=== PATIENT | female | born 1980 | race Caucasian/White ===

== ENCOUNTER 2017-04-05 00:12 | Emergency (ER) | payer OTHER ==
[2017-04-05 00:17] VITALS: BP 109/63
[2017-04-05 01:03] LABS: CHLORIDE,CL 103 mEq/L (98-106); SODIUM,NA 137 mEq/L (136-145)
--- NOTE | 2017-04-05 01:20 | EDM.PDOC ---
ED HPI GENERAL MEDICAL PROBLEM - General Chief Complaint: General Stated Complaint: post surgical "not feeling well" Time Seen by Provider: 04/05/17 00:53 Source of Information: Reports: Patient - History of Present Illness INITIAL COMMENTS - FREE TEXT/NARRATIVE: States that she was discharged from [facility] at 2130 tonight after being there since 03/27/17 and having incarcerated hernia surgery. Is supposed to start home health tomorrow to have IV antibiotics. She is confused as to how she is to meet up with home health. She states that she was driven home by her brother to [place] and then drove herself from there to here because she didn't understand what to do. She does have some tenderness to the incision area. No open area or drainage noted. Drain tube also noted to the right of the umbilicus. Location: Reports: Abdomen Severity: Mild Abdominal Pain Score (Numeric/FACES): 7 - Related Data Allergies Allergy/AdvReac Type Severity Reaction Status Date / Time No Known Allergies Allergy Verified 04/04/17 23:59 Home Meds: Home Meds PARoxetine [Paxil] 10 mg PO DAILY 10/18/15 [History] Gabapentin [Neurontin] 100 mg PO DAILY 08/27/16 [History] Magnesium 30 mg PO BID 08/27/16 [History] Potassium 99 mg PO DAILY 08/27/16 [History] rOPINIRole HCl [rOPINIRole] 3 mg PO DAILY 08/27/16 [History] Past Medical History HEENT History: Reports: Other (See Below) Cardiovascular History: Reports: Heart Murmur Respiratory History: Reports: None Gastrointestinal History: Reports: Cirrhosis, Other (See Below) Other Gastrointestinal History: liver failure. 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 Musculoskeletal History: Reports: Fracture Neurological History: Reports: Neuropathy, Peripheral Psychiatric History: Reports: Addiction, Anxiety, PTSD, Suicidal Ideation, Other (See Below) Other Psychiatric History: ETOH abuse Endocrine/Metabolic History: Reports: None Hematologic History: Reports: Anemia Immunologic History: Reports: None Oncologic (Cancer) History: Reports: None Dermatologic History: Reports: None - Infectious Disease History Infectious Disease History: Reports: Chicken Pox - Past Surgical History HEENT Surgical History: Reports: Other (See Below) Cardiovascular Surgical History: Reports: None Respiratory Surgical History: Reports: None GI Surgical History: Reports: Hernia Repair/Other Female Surgical History: Reports: None Musculoskeletal Surgical History: Reports: Hip Replacement Oncologic Surgical History: Reports: None Social & Family History - Family History Cardiac: Reports: CAD, High Cholesterol, Hypertension GI: Reports: Other (See Below) Musculoskeletal: Reports: Osteoarthritis - Tobacco Use Smoking Status *Q: Current Every Day Smoker Years of Tobacco use: 25 Packs/Tins Daily: 0.5 Used Tobacco, but Quit: No Second Hand Smoke Exposure: Yes - Caffeine Use Caffeine Use: Reports: Soda Caffeine Use Comment: 3 cans a day - Alcohol Use Days Per Week of Alcohol Use: 7 Number of Drinks Per Day: 10 Total Drinks Per Week: 70 - Recreational Drug Use Recreational Drug Use: No ED ROS GENERAL - Review of Systems Review Of Systems: See Below Constitutional: Denies: Fever, Chills HEENT: Reports: No Symptoms Respiratory: Denies: Shortness of Breath, Cough Cardiovascular: Denies: Edema GI/Abdominal: Reports: Abdominal Pain, Other (surgical incision is healing well. ) Skin: Reports: Jaundice Neurological: Reports: Confusion ED EXAM, GENERAL - Physical Exam Exam: See Below Exam Limited By: No Limitations General Appearance: Alert Ears: Normal External Exam, Normal Canal Head: Atraumatic, Normocephalic Neck: Normal Inspection, Supple, Non-Tender, Full Range of Motion Respiratory/Chest: No Respiratory Distress, Lungs Clear, Normal Breath Sounds Cardiovascular: Regular Rate, Rhythm, No Edema Extremities: Normal Inspection, Normal Range of Motion Neurological: Alert Skin Exam: Warm, Dry, Other (surgical incision to abdomen noted that is healing well. Drain tube intact and draining well ) Course - Vital Signs Last Recorded V/S: Last Vital Signs Temp 98.9 F 04/05/17 00:14 Pulse 83 04/05/17 00:14 Resp 20 04/05/17 00:14 BP 109/63 04/05/17 00:14 Pulse Ox 98 04/05/17 00:14 - Orders/Labs/Meds Orders: Active Orders 24 hr Category Date Time Status BASIC METABOLIC PANEL,BMP [CHEM] Stat Lab 04/05/17 00:26 Ordered C-REACTIVE PROTEIN [CHEM] Stat Lab 04/05/17 00:26 Ordered UA W/MICROSCOPIC [URIN] Stat Lab 04/05/17 00:26 Uncollected Labs: Laboratory Tests 06/16/17 Range/Units 00:26 WBC 4.4 L (5.0-10.0) 10^3/uL RBC 3.35 L (4.00-5.50) 10^6/uL Hgb 11.1 L (12.0-16.0) g/dL Hct 34.0 L (37.0-47.0) % MCV 101.5 H (82.0-94.0) fL MCH 33.1 H (27.0-32.0) pg MCHC 32.6 L (33.0-38.0) g/dL RDW Coeff of Renae 19.9 H (11.0-15.0) % Plt Count 56 L (150-400) 10^3/uL Neut % (Auto) 69.9 (35-85) % Lymph % (Auto) 10.2 (10-55) % Graham % (Auto) 18.1 H (0-16) % Eos % (Auto) 1.6 (0-5) % Baso % (Auto) 0.2 (0-3) % Neut # (Auto) 3.10 (1.80-7.00) 10^3/uL Lymph # (Auto) 0.45 L (1.00-4.80) 10^3/uL Graham # (Auto) 0.80 (0.00-0.80) 10^3/uL Eos # (Auto) 0.07 (0.00-0.45) 10^3/uL Baso # (Auto) 0.01 10^3/uL Departure - Departure Time of Disposition: 01:27 Disposition: Home, Self-Care 01 Condition: Good Clinical Impression: Hernia, umbilical, with obstruction, Alcohol abuse Liver failure Qualifiers: Liver failure chronicity: chronic Hepatic coma status: without hepatic coma Qualified Code(s): K72.10 - Chronic hepatic failure without coma - Discharge Information Forms: ED Department Discharge Additional Instructions: Home Health will be out to see you in the morning. Take your medications home with you and give them to the nurse in the morning. PUsh fluids as much as possible Fill the prescriptions that you have in the packet tomorrow AM. Home health can help you with that also Pain meds every 6 hours as directed. Follow up with surgeon as directed in you discharge packets Avoid any alcohol and cigarettes. - Problem List & Annotations (1) Hernia, umbilical, with obstruction SNOMED Code(s): 485525164 Code(s): K42.0 - UMBILICAL HERNIA WITH OBSTRUCTION, WITHOUT GANGRENE Status : Acute Priority: High Current Visit: Yes Onset Date: ~03/27/17 (2) Alcoholic cirrhosis of liver SNOMED Code(s): 328830654, 159741030 Code(s): K70.30 - ALCOHOLIC CIRRHOSIS OF LIVER WITHOUT ASCITES Status: Acute Priority: Medium Current Visit: No Onset Date: ~03/27/17 Qualifiers: Ascites presence: with ascites Qualified Code(s): K70.31 - Alcoholic cirrhosis of liver with ascites (3) Alcohol abuse SNOMED Code(s): 71826531 Code(s): F10.10 - ALCOHOL ABUSE, UNCOMPLICATED Status: Acute Priority: Low Current Visit: Yes Onset Date: ~03/27/17 - Problem List Review Problem List Initiated/Reviewed/Updated: Yes - My Orders Last 24 Hours: My Active Orders 04/05/17 00:26 BASIC METABOLIC PANEL,BMP [CHEM] Stat C-REACTIVE PROTEIN [CHEM] Stat UA W/MICROSCOPIC [URIN] Stat - Assessment/Plan Last 24 Hours: My Active Orders 04/05/17 00:26 BASIC METABOLIC PANEL,BMP [CHEM] Stat C-REACTIVE PROTEIN [CHEM] Stat UA W/MICROSCOPIC [URIN] Stat
[2017-04-05] MEDS ORDERED: oxyCODONE 5 MG Tab PO ONE (01:29)
== END 2017-04-05 01:38 | disposition home or self-care (01) ==
LOC: CC.ED 00:12
DX: K72.10 Chronic hepatic failure without coma (principal); K42.0 Umbilical hernia with obstruction, without gangrene; F10.10 Alcohol abuse, uncomplicated; F41.9 Anxiety disorder, unspecified; F17.210 Nicotine dependence, cigarettes, uncomplicated; Z86.2 Personal history of diseases of the blood and blood-forming organs and certain disorders involving the immune mechanism; Z96.649 Presence of unspecified artificial hip joint; Z79.899 Other long term (current) drug therapy
CPT/HCPCS: 36415; 80048; 85025; 86140; 99283; A9270

== ENCOUNTER 2017-07-03 19:55 | Emergency (ER) | payer OTHER ==
--- NOTE | 2017-07-03 20:37 | EDM.PDOC ---
ED HPI GENERAL MEDICAL PROBLEM - General Chief Complaint: General Stated Complaint: weakness, nausea Time Seen by Provider: 07/03/17 20:18 Source of Information: Reports: Patient History Limitations: Reports: No Limitations - History of Present Illness INITIAL COMMENTS - FREE TEXT/NARRATIVE: States that she hurts all over. Joints and back hurt. NO swelling of joints. Has not had any injuries. Has stopped taking her meds at least 2 weeks ago. " I hate to take pills". "My mind won't shut off and I'm tired but I can't sleep. " Onset: Gradual Duration: Week(s): (2+) Location: Reports: Back, Generalized Quality: Reports: Ache Generalized Pain Score (Numeric/FACES): 7 - Related Data Allergies Allergy/AdvReac Type Severity Reaction Status Date / Time CT contrast dye Allergy Shortness Uncoded 07/03/17 19:58 of Breath Home Meds: Home Meds PARoxetine [Paxil] 10 mg PO DAILY 10/18/15 [History] Gabapentin [Neurontin] 100 mg PO DAILY 08/27/16 [History] rOPINIRole HCl [rOPINIRole] 3 mg PO DAILY 08/27/16 [History] B Complx/C/Folic/Zinc/Copper/E [Eql Stress B-Complex Tablet] 1 tab PO DAILY [History] Cyclobenzaprine [Flexeril] 10 mg PO TID PRN 04/05/17 [History] Furosemide 40 mg PO BID 04/05/17 [History] Lactulose 30 ml PO TID 04/05/17 [History] Magnesium Oxide 800 mg PO TID 04/05/17 [History] Midodrine 2.5 mg PO BID 04/05/17 [History] Pantoprazole [ProTONIX] 40 mg PO BID 04/05/17 [History] Potassium Chloride 40 meq PO BID 04/05/17 [History] Rifaximin [Xifaxan] 550 mg PO BID 04/05/17 [History] Spironolactone [Aldactone] 100 mg PO DAILY 04/05/17 [History] Past Medical History HEENT History: Reports: Other (See Below) Cardiovascular History: Reports: Heart Murmur Respiratory History: Reports: None Gastrointestinal History: Reports: Cirrhosis, Other (See Below) Other Gastrointestinal History: liver failure. 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 Musculoskeletal History: Reports: Fracture Neurological History: Reports: Neuropathy, Peripheral Psychiatric History: Reports: Addiction, Anxiety, PTSD, Suicidal Ideation, Other (See Below) Other Psychiatric History: ETOH abuse Endocrine/Metabolic History: Reports: None Hematologic History: Reports: Anemia Immunologic History: Reports: None Oncologic (Cancer) History: Reports: None Dermatologic History: Reports: None - Infectious Disease History Infectious Disease History: Reports: Chicken Pox - Past Surgical History Cardiovascular Surgical History: Reports: None Respiratory Surgical History: Reports: None GI Surgical History: Reports: Hernia Repair/Other Female Surgical History: Reports: None Musculoskeletal Surgical History: Reports: Hip Replacement Oncologic Surgical History: Reports: None Social & Family History - Family History Cardiac: Reports: CAD, High Cholesterol, Hypertension GI: Reports: Other (See Below) Musculoskeletal: Reports: Osteoarthritis - Tobacco Use Smoking Status *Q: Current Every Day Smoker Years of Tobacco use: 36 Packs/Tins Daily: 0.5 Used Tobacco, but Quit: No Second Hand Smoke Exposure: Yes - Caffeine Use Caffeine Use: Reports: Soda Caffeine Use Comment: 3 cans a day - Alcohol Use Days Per Week of Alcohol Use: 7 Number of Drinks Per Day: 2 Total Drinks Per Week: 14 Date of Last Drink: 07/03/17 Time of Last Drink: 17:00 - Recreational Drug Use Recreational Drug Use: No - Living Situation & Occupation Living situation: Reports: Single, Alone Occupation: Disabled ED ROS GENERAL - Review of Systems Review Of Systems: See Below Constitutional: Reports: Chills, Weakness, Fatigue. Denies: Fever HEENT: Reports: No Symptoms Respiratory: Denies: Shortness of Breath, Wheezing, Cough Cardiovascular: Denies: Chest Pain, Edema, Lightheadedness GI/Abdominal: Reports: Abdominal Pain, Nausea, Vomiting (once earlier today). Denies: Black Stool, Bloody Stool, Constipation, Diarrhea : Reports: No Symptoms Musculoskeletal: Reports: Shoulder Pain, Joint Pain (states all of her joints hurt when she moves but they do not swell up.). Denies: Neck Pain, Joint Swelling Skin: Denies: Pruritis, Rash Neurological: Reports: Weakness. Denies: Confusion ED EXAM, GENERAL - Physical Exam Exam: See Below Exam Limited By: No Limitations General Appearance: Alert, Mild Distress Ears: Normal External Exam, Normal Canal, Normal TMs Nose: Normal Inspection Throat/Mouth: Normal Inspection, Normal Oropharynx, Normal Voice, No Airway Compromise Head: Atraumatic, Normocephalic Neck: Normal Inspection, Supple, Non-Tender, Full Range of Motion Respiratory/Chest: No Respiratory Distress, Lungs Clear, Normal Breath Sounds Cardiovascular: Normal Peripheral Pulses, Regular Rate, Rhythm, No Edema, No Murmur GI/Abdominal: Normal Bowel Sounds, Soft, Tender (mildly tender to the upper quadrants bilaterally. No tenderness to the lower quadrants.) Back Exam: Normal Inspection, Full Range of Motion Extremities: Normal Inspection, Non-Tender, No Pedal Edema, Normal Capillary Refill Neurological: Alert, Oriented Skin Exam: Warm, Dry, Intact, Normal Color Course - Vital Signs Last Recorded V/S: Last Vital Signs Temp 95.7 F 07/03/17 19:58 Pulse 111 H 07/03/17 19:58 Resp 20 07/03/17 19:58 BP 119/56 L 07/03/17 19:58 Pulse Ox 97 07/03/17 19:58 - Orders/Labs/Meds Orders: Active Orders 24 hr Category Date Time Status AMYLASE [CHEM] Stat Lab 07/03/17 20:25 Ordered C-REACTIVE PROTEIN [CHEM] Stat Lab 07/03/17 20:25 Ordered CBC WITH AUTO DIFF [HEME] Stat Lab 07/03/17 20:45 Received COMPREHENSIVE METABOLIC PN,CMP [CHEM] Stat Lab 07/03/17 20:25 Ordered CREATINE KINASE,CK [CHEM] Stat Lab 07/03/17 20:25 Ordered MAGNESIUM [CHEM] Stat Lab 07/03/17 20:25 Ordered TSH REFLEX TO FREE T4 [CHEM] Stat Lab 07/03/17 20:25 Ordered Labs: Laboratory Tests 07/03/17 07/03/17 Range/Units 20:45 20:45 ESR 36 H (0-20) mm/hr Urine Color Yellow (YELLOW) Urine Appearance Clear (CLEAR) Urine pH 6.0 (4.5-8.0) Ur Specific [place] 1.015 (1.003-1.020) Urine Protein 30 H (NEGATIVE) mg/dL Urine Glucose (UA) Negative (NEGATIVE) mg/dL Urine Ketones 15 H (NEGATIVE) mg/dL Urine Occult Blood Negative (NEGATIVE) Urine Nitrite Negative (NEGATIVE) Urine Bilirubin Negative (NEGATIVE) Urine Urobilinogen 1.0 (0.2-1.0) EU/dL Ur Leukocyte Esterase Negative (NEGATIVE) Urine RBC Not seen (0-5) /HPF Urine WBC 0-5 (0-5) /HPF Ur Squamous Epith Cells Few H (NOT SEEN) /HPF Urine Bacteria Few H (NOT SEEN) /HPF Urine Mucus Occasional H (NOT SEEN) /HPF Urinalysis Comment - Re-Assessments/Exams Free Text/Narrative Re-Assessment/Exam: 07/03/17 21:00 large dark red emesis noted. States "I really don't feel well" VS are stable. Awaiting lab results. Has not had any bloody stools or diarrhea. 07/03/17 21:35 large approximately 500 ml of bloody brownish liquid noted. Free Text/Narrative Re-Assessment/Exam: 07/03/17 21:30 Did contact the [facility] and discussed case with Dr. Harris and she stated that they do not have any beds available and would not be able to accept the pt at this time. 07/03/17 21:43 contacted one call at [facility] and discussed with Dr. Lemon this pt and he agrees in transfer. Will transfer by ALS ambulance Departure - Departure Time of Disposition: 21:49 Disposition: DC/Tfer to Acute Hospital 02 Condition: Serious Clinical Impression: Thrombocytopenia, Alcohol abuse GI bleed Qualifiers: GI bleed type/associated pathology: gastric ulcer Qualified Code(s): K25.4 - Chronic or unspecified gastric ulcer with hemorrhage Alcoholic cirrhosis of liver Qualifiers: Ascites presence: with ascites Qualified Code(s): K70.31 - Alcoholic cirrhosis of liver with ascites Liver failure Qualifiers: Liver failure chronicity: chronic Hepatic coma status: without hepatic coma Qualified Code(s): K72.10 - Chronic hepatic failure without coma - Discharge Information Forms: ED Department Discharge Additional Instructions: Transfer to [facility] room [address] Lemon accepting physician. Lactated ringers running at 500 ml enroute. Keep NPO - Problem List & Annotations (1) GI bleed SNOMED Code(s): 92240097 Code(s): K92.2 - GASTROINTESTINAL HEMORRHAGE, UNSPECIFIED Status: Acute Priority: High Current Visit: Yes Qualifiers: GI bleed type/associated pathology: gastric ulcer Qualified Code(s): K25.4 - Chronic or unspecified gastric ulcer with hemorrhage (2) Thrombocytopenia SNOMED Code(s): 647714201 Code(s): D69.6 - THROMBOCYTOPENIA, UNSPECIFIED Status: Acute Priority: High Current Visit: Yes (3) Liver failure SNOMED Code(s): 36080612 Code(s): K72.90 - HEPATIC FAILURE, UNSPECIFIED WITHOUT COMA Status: Acute Priority: High Current Visit: Yes Qualifiers: Liver failure chronicity: chronic Hepatic coma status: without hepatic coma Qualified Code(s): K72.10 - Chronic hepatic failure without coma (4) Alcoholic cirrhosis of liver SNOMED Code(s): 018051970, 831139829 Code(s): K70.30 - ALCOHOLIC CIRRHOSIS OF LIVER WITHOUT ASCITES Status: Chronic Priority: Medium Current Visit: Yes Onset Date: ~03/27/17 Qualifiers: Ascites presence: with ascites Qualified Code(s): K70.31 - Alcoholic cirrhosis of liver with ascites (5) Alcohol abuse SNOMED Code(s): 89674521 Code(s): F10.10 - ALCOHOL ABUSE, UNCOMPLICATED Status: Chronic Priority: Low Current Visit: Yes Onset Date: ~03/27/17 (6) Medical non-compliance SNOMED Code(s): 597569933 Code(s): Z91.19 - PATIENT'S NONCOMPLIANCE W OTH MEDICAL TREATMENT AND REGIMEN Status: Chronic Priority: Low Current Visit: No Onset Date: ~05/06 - Problem List Review Problem List Initiated/Reviewed/Updated: Yes - My Orders Last 24 Hours: My Active Orders 07/03/17 20:25 AMYLASE [CHEM] Stat C-REACTIVE PROTEIN [CHEM] Stat COMPREHENSIVE METABOLIC PN,CMP [CHEM] Stat CREATINE KINASE,CK [CHEM] Stat MAGNESIUM [CHEM] Stat TSH REFLEX TO FREE T4 [CHEM] Stat 07/03/17 20:45 CBC WITH AUTO DIFF [HEME] Stat - Assessment/Plan Last 24 Hours: My Active Orders 07/03/17 20:25 AMYLASE [CHEM] Stat C-REACTIVE PROTEIN [CHEM] Stat COMPREHENSIVE METABOLIC PN,CMP [CHEM] Stat CREATINE KINASE,CK [CHEM] Stat MAGNESIUM [CHEM] Stat TSH REFLEX TO FREE T4 [CHEM] Stat 07/03/17 20:45 CBC WITH AUTO DIFF [HEME] Stat Plan: Benefits of being transferred to [place] include the specialists including but not limited to surgeon, pill machine operator and GI. There is the risk of staying here of as we do not have surgeon and specialist if she continues to bleed with low platelets and hgb. Pt voices understanding and wishes to be transferred per ambulance.
[2017-07-03 21:11] LABS: CHLORIDE,CL 102 mEq/L (98-106); SODIUM,NA 142 mEq/L (136-145)
[2017-07-03] MEDS ORDERED: Lactated Ringers 1,000 ML IV SCH (21:30)
[2017-07-03] MEDS ORDERED: Ondansetron 4 MG/2 ML SDV IVPUSH PRN (21:36)
[2017-07-03] MEDS ORDERED: Pantoprazole 40 MG Vial IVPUSH SCH (21:45)
[2017-07-03 22:56] VITALS: BP 116/72
== END 2017-07-03 22:30 ==
LOC: CC.ED 19:55
DX: K25.4 Chronic or unspecified gastric ulcer with hemorrhage (principal); K72.10 Chronic hepatic failure without coma; K70.31 Alcoholic cirrhosis of liver with ascites; D69.6 Thrombocytopenia, unspecified; F10.10 Alcohol abuse, uncomplicated; F17.210 Nicotine dependence, cigarettes, uncomplicated; Z91.041 Radiographic dye allergy status; Z79.899 Other long term (current) drug therapy; F41.9 Anxiety disorder, unspecified; Z86.2 Personal history of diseases of the blood and blood-forming organs and certain disorders involving the immune mechanism; Z96.649 Presence of unspecified artificial hip joint
CPT/HCPCS: 36415; 80053; 81001; 82150; 82271; 82550; 83735; 84443; 85025; 85651; 86140; 96361; 96374; 96375; 99285; C9113; J2405; J7120; 99284

== ENCOUNTER 2017-11-15 17:37 | Emergency (ER) | payer OTHER ==
[2017-11-15 17:42] VITALS: BP 133/70
[2017-11-15 18:29] LABS: CHLORIDE,CL 104 mEq/L (98-106); SODIUM,NA 135 mEq/L (136-145)
--- NOTE | 2017-11-15 18:32 | EDM.PDOC ---
ED HPI GENERAL MEDICAL PROBLEM - General Chief Complaint: General Stated Complaint: FLU SYMPTOMS Time Seen by Provider: 11/15/17 18:00 Source of Information: Reports: Patient History Limitations: Reports: No Limitations - History of Present Illness INITIAL COMMENTS - FREE TEXT/NARRATIVE: This patient is a 36 year old female that presents to the ER. Patient reports that for 3 days she has not felt well. She reports having runny nose, congestion , drainage, productive cough, body aches. She denies neck pain, neck stiffness, cp, soa, abd pain, urinary, bowel changes, rashes. Onset Date: 11/12/17 Duration: Day(s): (3) Quality: Reports: Ache Severity: Mild Improves with: Reports: None Worsens with: Reports: None Associated Symptoms: Reports: No Other Symptoms, Cough, cough w sputum, Malaise. Denies: Confusion, Chest Pain, Diaphoresis, Fever/Chills, Headaches, Nausea/Vomiting, Rash, Seizure, Shortness of Breath, Syncope, Weakness Generalized Pain Score (Numeric/FACES): 7 - Related Data Allergies Allergy/AdvReac Type Severity Reaction Status Date / Time morphine Allergy Hallucinati Verified 11/15/17 17:[address] contrast dye Allergy Shortness Uncoded 07/03/17 19:58 of Breath Home Meds: Home Meds rOPINIRole HCl [rOPINIRole] 3 mg PO DAILY PRN 08/27/16 [History] B Complx/C/Folic/Zinc/Copper/E [Eql Stress B-Complex Tablet] 1 tab PO DAILY [History] Lactulose 30 ml PO TID 04/05/17 [History] Spironolactone [Aldactone] 100 mg PO DAILY 04/05/17 [History] traZODone HCl [Trazodone HCl] 25 mg PO DAILY 11/15/17 [History] Past Medical History HEENT History: Reports: Other (See Below) Cardiovascular History: Reports: Heart Murmur Respiratory History: Reports: None Gastrointestinal History: Reports: Cirrhosis, Other (See Below) Other Gastrointestinal History: liver failure. ascites Genitourinary History: Reports: None ANESTHESIOLOGISTS' ASSISTANT History: Reports: None Musculoskeletal History: Reports: Fracture Neurological History: Reports: Neuropathy, Peripheral Psychiatric History: Reports: Addiction, Anxiety, PTSD, Suicidal Ideation, Other (See Below) Other Psychiatric History: ETOH abuse Endocrine/Metabolic History: Reports: None Hematologic History: Reports: Anemia Immunologic History: Reports: None Oncologic (Cancer) History: Reports: None Dermatologic History: Reports: None - Infectious Disease History Infectious Disease History: Reports: Chicken Pox - Past Surgical History Cardiovascular Surgical History: Reports: None Respiratory Surgical History: Reports: None GI Surgical History: Reports: Hernia Repair/Other Female Surgical History: Reports: None Musculoskeletal Surgical History: Reports: Hip Replacement Oncologic Surgical History: Reports: None Social & Family History - Family History Cardiac: Reports: CAD, High Cholesterol, Hypertension GI: Reports: Other (See Below) Musculoskeletal: Reports: Osteoarthritis - Tobacco Use Smoking Status *Q: Heavy Tobacco Smoker Years of Tobacco use: 15 Packs/Tins Daily: 1 Used Tobacco, but Quit: No Second Hand Smoke Exposure: Yes - Caffeine Use Caffeine Use: Reports: None Caffeine Use Comment: 3 cans a day - Alcohol Use Days Per Week of Alcohol Use: 7 Number of Drinks Per Day: 2 Total Drinks Per Week: 14 - Recreational Drug Use Recreational Drug Use: No - Living Situation & Occupation Living situation: Reports: Single, Alone Occupation: Disabled ED ROS GENERAL - Review of Systems Review Of Systems: See Below Constitutional: Reports: No Symptoms HEENT: Reports: Rhinitis, Sinus Problem Respiratory: Reports: Cough, Sputum. Denies: Shortness of Breath Cardiovascular: Reports: No Symptoms Endocrine: Reports: No Symptoms GI/Abdominal: Reports: No Symptoms : Reports: No Symptoms Musculoskeletal: Reports: No Symptoms Skin: Reports: No Symptoms Neurological: Reports: No Symptoms Psychiatric: Reports: No Symptoms Hematologic/Lymphatic: Reports: No Symptoms Immunologic: Reports: No Symptoms ED EXAM, GENERAL - Physical Exam Exam: See Below Exam Limited By: No Limitations General Appearance: Alert, WD/WN, No Apparent Distress Eye Exam: Bilateral Eye: Normal Inspection Ears: Normal External Exam, Normal Canal, Hearing Grossly Normal, Normal TMs Ear Exam: Bilateral Ear: Auricle Normal, Canal Normal, TM normal Nose: Normal Mucosa, No Blood, Clear Rhinorrhea Throat/Mouth: Normal Inspection, Normal Lips, Normal Teeth, Normal Gums, Normal Oropharynx, Normal Voice, No Airway Compromise Head: Atraumatic, Normocephalic Neck: Normal Inspection, Supple, Non-Tender, Full Range of Motion Respiratory/Chest: No Respiratory Distress, Lungs Clear, Normal Breath Sounds, No Accessory Muscle Use Cardiovascular: Normal Peripheral Pulses, Regular Rate, Rhythm, No Edema, No Gallop, No JVD, No Murmur, No Rub Peripheral Pulses: 2+: Radial (L), Radial (R), Posterior Tibial (L), Posterior Tibial (R) GI/Abdominal: Normal Bowel Sounds, Soft, Non-Tender, No Organomegaly, No Distention, No Abnormal Bruit, No Mass, Pelvis Stable Back Exam: Normal Inspection, Full Range of Motion. No: CVA Tenderness (L), CVA Tenderness (R) Extremities: Normal Inspection, Normal Range of Motion, Non-Tender, No Pedal Edema, Normal Capillary Refill Neurological: Alert, Oriented Psychiatric: Normal Affect, Normal Mood Skin Exam: Warm, Dry, Intact, No Rash, Jaundice (mildly. No conjuncta jaundice. ) Course - Vital Signs Last Recorded V/S: Last Vital Signs Temp 98.1 F 11/15/17 17:38 Pulse 100 11/15/17 17:38 Resp 20 11/15/17 17:38 BP 133/70 11/15/17 17:38 Pulse Ox 95 11/15/17 17:38 - Orders/Labs/Meds Labs: Laboratory Tests 11/15/17 11/15/17 Range/Units 18:08 18:08 WBC 3.7 L (5.0-10.0) 10^3/uL RBC 3.16 L (4.00-5.50) 10^6/uL Hgb 9.7 L (12.0-16.0) g/dL Hct 30.7 L (37.0-47.0) % MCV 97.2 H (82.0-94.0) fL MCH 30.7 (27.0-32.0) pg MCHC 31.6 L (33.0-38.0) g/dL RDW Coeff of Renae 16.8 H (11.0-15.0) % Plt Count 55 L (150-400) 10^3/uL Neut % (Auto) 60.9 (35-85) % Lymph % (Auto) 23.8 (10-55) % [place] % (Auto) 12.3 (0-16) % Eos % (Auto) 2.7 (0-5) % Baso % (Auto) 0.3 (0-3) % Neut # (Auto) 2.23 (1.80-7.00) 10^3/uL Lymph # (Auto) 0.87 L (1.00-4.80) 10^3/uL [place] # (Auto) 0.45 (0.00-0.80) 10^3/uL Eos # (Auto) 0.10 (0.00-0.45) 10^3/uL Baso # (Auto) 0.01 10^3/uL Sodium 135 L (136-145) mEq/L Potassium 3.9 (3.5-5.0) mEq/L Chloride 104 (98-106) mEq/L Carbon Dioxide 22 (21-32) mmol/L BUN 9 (7-18) mg/dL Creatinine 0.7 (0.6-1.0) mg/dL Est Cr Clr Drug Dosing 94.10 mL/min Estimated GFR (MDRD) > 60 (>=60) mL/min Glucose 105 H D (75-99) mg/dL Calcium 8.7 (8.4-10.1) mg/dL Total Bilirubin 2.0 H (0.0-1.0) mg/dL AST 25 (15-37) U/L ALT 15 (12-78) U/L Alkaline Phosphatase 121 H (46-116) U/L Total Protein 7.1 (6.4-8.2) g/dL Albumin 2.7 L (3.4-5.0) g/dL Departure - Departure Time of Disposition: 18:36 Disposition: Home, Self-Care 01 Condition: Good Clinical Impression: Upper respiratory infection Qualifiers: URI type: unspecified viral URI Qualified Code(s): J06.9 - Acute upper respiratory infection, unspecified - Discharge Information Instructions: Upper Respiratory Infection, Adult, [id number] Forms: ED Department Discharge Additional Instructions: Followup with your primary care provider Return to the ER for worsening of condition or any emergent concerns Increase fluids Cefdinir 300mg 1 pill twice a day for 10 days #20 no refill - Assessment/Plan Plan: PLEASE SEE RN NOTE FOR PFSH.
== END 2017-11-15 18:51 | disposition home or self-care (01) ==
LOC: CC.ED 17:37
DX: J06.9 Acute upper respiratory infection, unspecified (principal); F17.210 Nicotine dependence, cigarettes, uncomplicated; Z88.5 Allergy status to narcotic agent; Z91.041 Radiographic dye allergy status; Z79.899 Other long term (current) drug therapy
CPT/HCPCS: 36415; 80053; 85025; 87804; 99283

== ENCOUNTER 2018-01-01 01:46 | Emergency (ER) | payer OTHER ==
[2018-01-01 02:26] LABS: CHLORIDE,CL 100 mEq/L (98-106); SODIUM,NA 138 mEq/L (136-145)
[2018-01-01] MEDS ORDERED: Lactated Ringers 1,000 ML IV ONE (02:37)
[2018-01-01] MEDS ORDERED: Potassium Chloride 20 MEQ in Premix Bag 1 BAG IV ONE (02:37)
[2018-01-01] MEDS ORDERED: Pantoprazole 40 MG Vial IVPUSH STA (02:39)
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
[2018-01-01] MEDS ORDERED: Ondansetron 4 MG/2 ML SDV IVPUSH STA (02:53)
[2018-01-01] MEDS ORDERED: Ondansetron 4 MG/2 ML SDV IVPUSH ONE (03:37)
[2018-01-01] MEDS ORDERED: LORazepam 2 MG/ML Syringe IVPUSH PRN (03:37)
[2018-01-01] MEDS ORDERED: cefTRIAXone 1 GM Vial IVPUSH ONE (03:47)
[2018-01-01 04:32] VITALS: BP 121/51
== END 2018-01-01 04:50 ==
LOC: CC.ED 01:46
DX: K70.30 Alcoholic cirrhosis of liver without ascites (principal); K92.2 Gastrointestinal hemorrhage, unspecified; D69.6 Thrombocytopenia, unspecified; E87.6 Hypokalemia; I10 Essential (primary) hypertension; F41.9 Anxiety disorder, unspecified; F17.210 Nicotine dependence, cigarettes, uncomplicated; Z79.899 Other long term (current) drug therapy; Z88.5 Allergy status to narcotic agent; Z91.041 Radiographic dye allergy status; Z91.09 Other allergy status, other than to drugs and biological substances
CPT/HCPCS: 36415; 80053; 81001; 82150; 82271; 85025; 86140; 96365; 96366; 96368; 96375; 99285; C9113; J0696; J2060; J2405; J3480; J7120

== ENCOUNTER 2018-02-07 14:00 | Emergency (ER) | payer OTHER ==
--- NOTE | 2018-02-07 14:26 | EDM.PDOC ---
ED HPI GENERAL MEDICAL PROBLEM - General Chief Complaint: Abdominal Pain Stated Complaint: STOMACH Time Seen by Provider: 02/07/18 14:21 - History of Present Illness INITIAL COMMENTS - FREE TEXT/NARRATIVE: Corrie is a 37 year old female, with PMH of alcohol cirrhosis, hepatic encephalopathy, HTN, hyperlipidemia, and esophageal varices who presents to the ED with c/o vomiting blood. She reports that she has been nauseated the past few weeks. She was seen by [facility] on Saturday02/04/18. She reports she was given zofran. This has helped some with the nausea. She reports that about an hour ago she had an episode where she vomited and it was pure blood. She reports it was a rather small amount, but this happened about a month ago and she ended up in the ICU so she is very concerned. She does complain of abdominal pain, rated a 4/10 to her umbilical area. She reports this has worsened some today. She has not been eating or drinking much. She reports she feels somewhat weak. She denies any excessive alcohol use for the past 1.5 months. She does report she "has a sip last night to see if it tasted sour." Denies any fever, chills, dizziness, chest pain, shortness of breath, diarrhea. Onset: Today, Sudden Onset Date: 02/07/18 Onset Time: 13:00 Duration: Getting Worse Location: Reports: Abdomen (umbilical), Other (vomiting blood) Severity: Moderate Associated Symptoms: Reports: Loss of Appetite, Nausea/Vomiting, Weakness. Denies: Confusion, Chest Pain, Cough, cough w sputum, Diaphoresis, Fever/Chills , Headaches, Malaise, Rash, Seizure, Shortness of Breath, Syncope Abdominal Pain Score (Numeric/FACES): 4 - Related Data Allergies Allergy/AdvReac Type Severity Reaction Status Date / Time morphine Allergy Hallucinati Verified 02/07/18 14:[address] contrast dye Allergy Shortness Uncoded 07/03/17 19:58 of Breath laundry soa[ Allergy Rash Uncoded 01/01/18 01:50 Home Meds: Home Meds rOPINIRole HCl [rOPINIRole] 3 mg PO DAILY PRN 08/27/16 [History] Lactulose 30 ml PO TID PRN 04/05/17 [History] Folic Acid 1 mg PO DAILY 02/07/18 [History] Multivitamin with Minerals [Multiple Vitamin] 1 tab PO DAILY 02/07/18 [History] Mylanta 10 ml PO TID PRN 02/07/18 [History] Ondansetron [Zofran] 8 mg PO Q8H PRN 02/07/18 [History] Pantoprazole Sodium 40 mg PO BID 02/07/18 [History] Rifaximin [Xifaxan] 550 mg PO BID 02/07/18 [History] Spironolactone [Aldactone] 25 mg PO DAILY 02/07/18 [History] Thiamine HCl [Vitamin B-1] 100 mg PO DAILY 02/07/18 [History] traZODone HCl [Trazodone HCl] 25 - 50 mg PO BEDTIME PRN 02/07/18 [History] valACYclovir HCl [Valtrex] 2,000 mg PO BID PRN 02/07/18 [History] Past Medical History HEENT History: Reports: Other (See Below) Other HEENT History: BLOOD VESSEL THAT BURST IN HER THROAT; 2017 Cardiovascular History: Reports: Heart Murmur Respiratory History: Reports: None Gastrointestinal History: Reports: Cirrhosis, Other (See Below) Other Gastrointestinal History: liver failure. 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: Reports: Endometriosis Musculoskeletal History: Reports: Fracture Neurological History: Reports: Neuropathy, Peripheral Psychiatric History: Reports: Addiction, Anxiety, PTSD, Other (See Below) Other Psychiatric History: ETOH abuse Endocrine/Metabolic History: Reports: None Hematologic History: Reports: Anemia Immunologic History: Reports: None Oncologic (Cancer) History: Reports: None Dermatologic History: Reports: None - Infectious Disease History Infectious Disease History: Reports: Chicken Pox Other Infectious Disease History: hx mrsa in area of hernia repair - Past Surgical History Cardiovascular Surgical History: Reports: None Respiratory Surgical History: Reports: None GI Surgical History: Reports: Hernia Repair/Other Female Surgical History: Reports: None Musculoskeletal Surgical History: Reports: Hip Replacement Oncologic Surgical History: Reports: None Social & Family History - Family History Cardiac: Reports: CAD, High Cholesterol, Hypertension GI: Reports: Other (See Below) Musculoskeletal: Reports: Osteoarthritis - Tobacco Use Smoking Status *Q: Current Every Day Smoker Years of Tobacco use: 20 Packs/Tins Daily: 0.5 Used Tobacco, but Quit: No Second Hand Smoke Exposure: Yes - Caffeine Use Caffeine Use: Reports: Soda Caffeine Use Comment: 3 cans a day - Alcohol Use Days Per Week of Alcohol Use: 7 Number of Drinks Per Day: 2 Total Drinks Per Week: 14 - Recreational Drug Use Recreational Drug Use: No Recreational Drug Type: Reports: Marijuana/Hashish - Living Situation & Occupation Living situation: Reports: Single, Alone Occupation: Disabled ED ROS GENERAL - Review of Systems Review Of Systems: See Below Constitutional: Reports: Weakness, Fatigue, Decreased Appetite. Denies: Fever, Chills, Malaise Respiratory: Denies: Shortness of Breath, Cough, Sputum Cardiovascular: Denies: Chest Pain, Dyspnea on Exertion, Lightheadedness, Syncope Endocrine: Reports: Fatigue GI/Abdominal: Reports: Abdominal Pain, Decreased Appetite, Hematemesis, Nausea, Vomiting. Denies: Diarrhea Skin: Reports: Jaundice Neurological: Reports: No Symptoms. Denies: Confusion Psychiatric: Reports: No Symptoms Hematologic/Lymphatic: Reports: Easy Bruising Immunologic: Reports: No Symptoms ED EXAM, GI/ABD - Physical Exam Exam: See Below Exam Limited By: No Limitations General Appearance: Alert, WD/WN, No Apparent Distress Throat/Mouth: Normal Inspection, Normal Lips, Normal Teeth, Normal Gums, Normal Oropharynx, Normal Voice, No Airway Compromise Head: Atraumatic, Normocephalic Neck: Normal Inspection, Supple, Non-Tender, Full Range of Motion Respiratory/Chest: No Respiratory Distress, Lungs Clear, Normal Breath Sounds, No Accessory Muscle Use, Chest Non-Tender Cardiovascular: Normal Peripheral Pulses, Regular Rate, Rhythm, No Edema, No Gallop, No JVD, No Murmur, No Rub GI/Abdominal Exam: Normal Bowel Sounds, Soft, Distended, Tender (umbilical area) Back Exam: Normal Inspection, Full Range of Motion, NT Extremities: Normal Inspection, Normal Range of Motion, Non-Tender, Normal Capillary Refill, No Pedal Edema Neurological: Alert, Oriented, CN II-XII Intact, Normal Cognition, Normal Gait, Normal Reflexes, No Motor/Sensory Deficits Psychiatric: Normal Affect, Normal Mood Skin Exam: Warm, Dry, Intact, Jaundice Lymphatic: No Adenopathy Course - Vital Signs Last Recorded V/S: Last Vital Signs Temp 98.9 F 02/07/18 14:02 Pulse 116 H 02/07/18 14:02 Resp 16 02/07/18 14:02 BP 117/73 02/07/18 15:21 Pulse Ox 96 02/07/18 14:02 - Orders/Labs/Meds Orders: Active Orders 24 hr Category Date Time Status Ondansetron [Zofran] Med 02/07/18 17:00 Active 4 mg IVPUSH STAT Medication Orders Ondansetron HCl (Zofran) 4 mg IVPUSH STAT HARLEEN Last Admin: 02/07/18 17:19 Dose: 4 mg Labs: Laboratory Tests 02/07/18 02/07/18 02/07/18 Range/Units 14:26 14:26 14:30 WBC 3.4 L (5.0-10.0) 10^3/uL RBC 2.75 L (4.00-5.50) 10^6/uL Hgb 7.9 L* (12.0-16.0) g/dL Hct 25.2 L (37.0-47.0) % MCV 91.6 (82.0-94.0) fL MCH 28.7 (27.0-32.0) pg MCHC 31.3 L (33.0-38.0) g/dL RDW Coeff of Renae 18.2 H (11.0-15.0) % Plt Count 38 L* (150-400) 10^3/uL Neut % (Auto) 71.1 (35-85) % Lymph % (Auto) 13.7 (10-55) % Davie % (Auto) 13.1 (0-16) % Eos % (Auto) 1.8 (0-5) % Baso % (Auto) 0.3 (0-3) % Neut # (Auto) 2.39 (1.80-7.00) 10^3/uL Lymph # (Auto) 0.46 L (1.00-4.80) 10^3/uL Davie # (Auto) 0.44 (0.00-0.80) 10^3/uL Eos # (Auto) 0.06 (0.00-0.45) 10^3/uL Baso # (Auto) 0.01 10^3/uL PT 14.7 H (9.7-12.3) SEC INR 1.45 H (0.92-1.18) APTT 33.6 H (23.2-32.3) SEC Sodium 140 (136-145) mEq/L Potassium 3.7 (3.5-5.0) mEq/L Chloride 107 H (98-106) mEq/L Carbon Dioxide 25 (21-32) mmol/L BUN 11 (7-18) mg/dL Creatinine 0.7 (0.6-1.0) mg/dL Est Cr Clr Drug Dosing 93.17 mL/min Estimated GFR (MDRD) > 60 (>=60) mL/min Glucose 124 H (75-99) mg/dL Calcium 7.7 L (8.4-10.1) mg/dL Total Bilirubin 1.3 H (0.0-1.0) mg/dL AST 26 (15-37) U/L ALT 19 (12-78) U/L Alkaline Phosphatase 118 H (46-116) U/L Total Protein 6.2 L (6.4-8.2) g/dL Albumin 2.4 L (3.4-5.0) g/dL Amylase 51 (25-115) U/L Meds: Medications Generic Name Dose Route Start Last Admin Trade Name Freq PRN Reason Stop Dose Admin Ondansetron HCl 4 mg 02/07/18 17:00 02/07/18 17:19 Zofran IVPUSH 4 mg STAT HARLEEN Administration Discontinued Medications Generic Name Dose Route Start Last Admin Trade Name Freq PRN Reason Stop Dose Admin Sodium Chloride 1,000 mls @ 999 mls/hr 02/07/18 16:58 02/07/18 17:16 Normal Saline IV 02/07/18 17:58 999 mls/hr .BOLUS ONE Administration Pantoprazole Sodium 80 mg 02/07/18 16:57 02/07/18 17:11 Protonix Iv IVPUSH 02/07/18 16:58 80 mg ONETIME ONE Administration - Re-Assessments/Exams Free Text/Narrative Re-Assessment/Exam: Discussed case with patient's PCP Una at the [facility] in [place]. She reports that her hgb on 02/04/18 was 9.0. She relays to me that the [facility] is unable to accept her for transfer at this time due to no surgeon available if she were to need emergent endoscopy. Discussed case with Dr. Crockett ([facility] hospitalist) who accepted the patient for transfer. Patient given 80 mg protonix, 1L NS, and 4 mg zofran. VSS at this time. [facility] to provide ALS transfer to [facility]. Risks and benefits were discussed with patient. Risks of transfer include worsening of condition, , and MVA. Benefits of transfer include higher level of care, surgical consultation if needed, availability of required meds and blood products. Risks of nontransfer include worsening of condition and nonspecialized services. Benefits of nontransfer include close to home and familiar environment. Patient voiced understanding and was agreeable to transfer. Departure - Departure Time of Disposition: 17:40 Disposition: DC/Tfer to [facility] 02 Condition: Fair Clinical Impression: Esophageal varices in alcoholic cirrhosis, Hematemesis with nausea, Thrombocytopenia Anemia Qualifiers: Anemia type: unspecified type Qualified Code(s): D64.9 - Anemia, unspecified - Discharge Information Referrals: Julia Rowan PA-C [Primary Care Provider] - Forms: ED Department Discharge - Problem List & Annotations (1) GI bleed SNOMED Code(s): 86458712 Code(s): K92.2 - GASTROINTESTINAL HEMORRHAGE, UNSPECIFIED Status: Acute Current Visit: No Qualifiers: GI bleed type/associated pathology: gastritis Gastritis type: alcoholic Qualified Code(s): K29.21 - Alcoholic gastritis with bleeding (2) Alcoholic cirrhosis of liver SNOMED Code(s): 568373894 Code(s): K70.30 - ALCOHOLIC CIRRHOSIS OF LIVER WITHOUT ASCITES Status: Chronic Priority: Medium Current Visit: No Onset Date: ~03/27/17 Qualifiers: Ascites presence: with ascites Qualified Code(s): K70.31 - Alcoholic cirrhosis of liver with ascites (3) Esophageal varices in alcoholic cirrhosis SNOMED Code(s): 784797538 Code(s): K70.30 - ALCOHOLIC CIRRHOSIS OF LIVER WITHOUT ASCITES; I85.10 - SECONDARY ESOPHAGEAL VARICES WITHOUT BLEEDING Status: Acute Current Visit: Yes (4) Hematemesis with nausea SNOMED Code(s): 8907578, 89042208 Code(s): K92.0 - HEMATEMESIS Status: Acute Current Visit: Yes (5) Thrombocytopenia SNOMED Code(s): 882933722 Code(s): D69.6 - THROMBOCYTOPENIA, UNSPECIFIED Status: Chronic Current Visit: Yes (6) Anemia SNOMED Code(s): 718908808 Code(s): D64.9 - ANEMIA, UNSPECIFIED Status: Acute Current Visit: Yes Qualifiers: Anemia type: unspecified type Qualified Code(s): D64.9 - Anemia, unspecified - Problem List Review Problem List Initiated/Reviewed/Updated: Yes - My Orders Last 24 Hours: My Active Orders 02/07/18 17:00 Ondansetron [Zofran] 4 mg IVPUSH STAT - Assessment/Plan Last 24 Hours: My Active Orders 02/07/18 17:00 Ondansetron [Zofran] 4 mg IVPUSH STAT Plan: Patent will be transfer to [facility] for further monitoring and treatment.
[2018-02-07 14:46] LABS: CHLORIDE,CL 107 mEq/L (98-106); SODIUM,NA 140 mEq/L (136-145)
[2018-02-07 15:22] VITALS: BP 117/73
[2018-02-07] MEDS ORDERED: Pantoprazole 40 MG Vial IVPUSH ONE (16:57)
[2018-02-07] MEDS ORDERED: Sodium Chloride 0.9% 1,000 ML IV ONE (16:58)
[2018-02-07] MEDS ORDERED: Ondansetron 4 MG/2 ML SDV IVPUSH SCH (17:00)
== END 2018-02-07 17:40 ==
LOC: CC.ED 14:00
DX: K70.30 Alcoholic cirrhosis of liver without ascites (principal); I85.10 Secondary esophageal varices without bleeding; D69.6 Thrombocytopenia, unspecified; K92.0 Hematemesis; R11.0 Nausea; D64.9 Anemia, unspecified; F17.210 Nicotine dependence, cigarettes, uncomplicated; Z88.5 Allergy status to narcotic agent; Z91.041 Radiographic dye allergy status; Z91.013 Allergy to seafood; Z79.899 Other long term (current) drug therapy
CPT/HCPCS: 36415; 80053; 82150; 85025; 85610; 85730; 96361; 96374; 96375; 99284; C9113; J2405; J7030

== ENCOUNTER 2018-03-05 00:05 | Emergency (ER) | payer OTHER ==
[2018-03-05] MEDS: Lactated Ringers 1,000 ML IV SCH ×2 (00:58→02:00)
[2018-03-05] MEDS: Ondansetron 4 MG/2 ML SDV IVPUSH ONE (00:58)
[2018-03-05] MEDS: Pantoprazole 40 MG Vial IVPUSH SCH ×2 (00:58→01:15)
--- NOTE | 2018-03-05 01:17 | EDM.PDOC ---
ED HPI GENERAL MEDICAL PROBLEM - General Chief Complaint: Gastrointestinal Problem Stated Complaint: "Having black stools" Time Seen by Provider: 03/05/18 00:05 Source of Information: Reports: Patient History Limitations: Reports: No Limitations - History of Present Illness INITIAL COMMENTS - FREE TEXT/NARRATIVE: Corrie is a 37 yo female who presents to the ER via private vehicle with concerns of dark stools. She was seen in clinic earlier today with complaints of nausea. Laboratory work showed a Hgb of 9.1 at 1535. Last known Hgb was 10.2 on 02/17/18 which was done by her primary provider at the [place]. She admitted earlier she had a darker stool yesterday but none today. Tonight she admits since being seen in the clinic she has had multiple episodes of large black stools. States she became slightly lightheaded this evening as well. She admits with a known history of esophageal varices with recent hospital admissions, she was advised to come in to the emergency room. Hgb [place] 8.7[place] [address]. She has a known history of esophageal varices, cirrhosis of liver, thrombocytopenia and sinus tachycardia. She denies any alcohol use since December. She has been hospitalized twice this year secondary to the esophageal varices. Duration: Getting Worse - Related Data Allergies Allergy/AdvReac Type Severity Reaction Status Date / Time morphine Allergy Hallucinati Verified 03/05/18 00:[address] contrast dye Allergy Shortness Uncoded 03/05/18 00:17 of Breath laundry soa[ Allergy Rash Uncoded 03/05/18 00:17 Home Meds: Home Meds rOPINIRole HCl [rOPINIRole] 3 mg PO DAILY PRN 08/27/16 [History] Lactulose 30 ml PO TID PRN 04/05/17 [History] Folic Acid 1 mg PO DAILY 02/07/18 [History] Multivitamin with Minerals [Multiple Vitamin] 1 tab PO DAILY 02/07/18 [History] Mylanta 10 ml PO TID PRN 02/07/18 [History] Ondansetron [Zofran] 8 mg PO Q8H PRN 02/07/18 [History] Pantoprazole Sodium 40 mg PO BID 02/07/18 [History] Rifaximin [Xifaxan] 550 mg PO BID 02/07/18 [History] Spironolactone [Aldactone] 25 mg PO DAILY 02/07/18 [History] Thiamine HCl [Vitamin B-1] 100 mg PO DAILY 02/07/18 [History] traZODone HCl [Trazodone HCl] 25 - 50 mg PO BEDTIME PRN 02/07/18 [History] valACYclovir HCl [Valtrex] 2,000 mg PO BID PRN 02/07/18 [History] Past Medical History HEENT History: Reports: Other (See Below) Other HEENT History: BLOOD VESSEL THAT BURST IN HER THROAT; 2017 Cardiovascular History: Reports: Heart Murmur Respiratory History: Reports: None Gastrointestinal History: Reports: Cirrhosis, GI Bleed, Other (See Below) Other Gastrointestinal History: liver failure. 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 Musculoskeletal History: Reports: Fracture Neurological History: Reports: Neuropathy, Peripheral Psychiatric History: Reports: Addiction, Anxiety, PTSD, Other (See Below) Other Psychiatric History: ETOH abuse Endocrine/Metabolic History: Reports: None Hematologic History: Reports: Anemia Immunologic History: Reports: None Oncologic (Cancer) History: Reports: None Dermatologic History: Reports: None - Infectious Disease History Infectious Disease History: Reports: Chicken Pox Other Infectious Disease History: hx mrsa in area of hernia repair - Past Surgical History Cardiovascular Surgical History: Reports: None Respiratory Surgical History: Reports: None GI Surgical History: Reports: Hernia Repair/Other Female Surgical History: Reports: None Musculoskeletal Surgical History: Reports: Hip Replacement Oncologic Surgical History: Reports: None Social & Family History - Family History Cardiac: Reports: CAD, High Cholesterol, Hypertension GI: Reports: Other (See Below) Musculoskeletal: Reports: Osteoarthritis - Tobacco Use Smoking Status *Q: Current Every Day Smoker Years of Tobacco use: 15 Packs/Tins Daily: 1 - Caffeine Use Caffeine Use: Reports: Soda Caffeine Use Comment: 3 cans a day - Recreational Drug Use Recreational Drug Use: No - Living Situation & Occupation Living situation: Reports: Single, Alone Occupation: Disabled ED ROS GENERAL - Review of Systems Review Of Systems: See Below Constitutional: Reports: Fatigue, Decreased Appetite. Denies: Fever, Chills, Weakness HEENT: Reports: No Symptoms Respiratory: Denies: Shortness of Breath, Wheezing Cardiovascular: Reports: Lightheadedness. Denies: Chest Pain, Dyspnea on Exertion, Edema, Palpitations GI/Abdominal: Reports: Black Stool, Diarrhea, Nausea. Denies: Abdominal Pain, Hematemesis, Hematochezia, Melena, Vomiting : Reports: No Symptoms Skin: Reports: No Symptoms Neurological: Denies: Headache, Syncope, Difficulty Walking, Weakness Hematologic/Lymphatic: Reports: Anemia ED EXAM, GI/ABD - Physical Exam Exam: See Below Exam Limited By: No Limitations General Appearance: Alert, No Apparent Distress Eyes: Bilateral: Normal Appearance Ears: Normal External Exam, Normal Canal, Hearing Grossly Normal, Normal TMs Nose: Normal Inspection, Normal Mucosa, No Blood Throat/Mouth: Normal Inspection, Normal Lips, Normal Gums, Normal Oropharynx, Normal Voice, No Airway Compromise Head: Atraumatic, Normocephalic Neck: Normal Inspection, Supple Respiratory/Chest: No Respiratory Distress, Lungs Clear, Normal Breath Sounds, No Accessory Muscle Use Cardiovascular: Normal Peripheral Pulses, Regular Rate, Rhythm, No Edema, No Murmur GI/Abdominal Exam: Normal Bowel Sounds, Soft, Non-Tender, No Organomegaly, No Distention, No Mass Extremities: Normal Inspection, No Pedal Edema Neurological: Alert, Oriented, Normal Cognition, Normal Gait, No Motor/Sensory Deficits Psychiatric: Normal Affect, Normal Mood Skin Exam: Warm, Dry, Intact, No Rash, Jaundice Course - Orders/Labs/Meds Orders: Active Orders 24 hr Category Date Time Status OCCULT BLOOD SCREEN [OP] Stat Lab 03/05/18 00:28 Ordered Lactated Ringers [Ringers, Lactated] 1,000 ml Med 03/05/18 01:00 Active IV ASDIRECTED Pantoprazole [ProTONIX IV] Med 03/05/18 01:00 Active 40 mg IVPUSH Q24H Pantoprazole [ProTONIX IV] Med 03/05/18 01:15 Ordered 40 mg IVPUSH Q24H Medication Orders Lactated Ringer's (Ringers, Lactated) 1,000 mls @ 100 mls/hr IV ASDIRECTED HARLEEN Last Admin: 03/05/18 00:58 Dose: 100 mls/hr Pantoprazole Sodium (Protonix Iv) 40 mg IVPUSH Q24H [facility] Last Admin: 03/05/18 00:58 Dose: 40 mg Labs: Laboratory Tests 03/05/18 03/05/18 03/05/18 Range/Units 00:20 00:20 00:20 WBC 6.2 (5.0-10.0) 10^3/uL RBC 3.00 L (4.00-5.50) 10^6/uL Hgb 8.7 L (12.0-16.0) g/dL Hct 27.2 L (37.0-47.0) % MCV 90.7 (82.0-94.0) fL MCH 29.0 (27.0-32.0) pg MCHC 32.0 L (33.0-38.0) g/dL RDW Coeff of Renae 20.5 H (11.0-15.0) % Plt Count 64 L (150-400) 10^3/uL Neut % (Auto) 57.1 (35-85) % Lymph % (Auto) 32.3 (10-55) % [place] % (Auto) 7.9 (0-16) % Eos % (Auto) 2.4 (0-5) % Baso % (Auto) 0.3 (0-3) % Neut # (Auto) 3.54 (1.80-7.00) 10^3/uL Lymph # (Auto) 2.00 (1.00-4.80) 10^3/uL [place] # (Auto) 0.49 (0.00-0.80) 10^3/uL Eos # (Auto) 0.15 (0.00-0.45) 10^3/uL Baso # (Auto) 0.02 10^3/uL PT 14.9 H (9.7-12.3) SEC INR 1.47 H (0.92-1.18) APTT 34.9 H (23.2-32.3) SEC Lactate Dehydrogenase 150 (100-190) U/L Meds: Medications Generic Name Dose Route Start Last Admin Trade Name Freq PRN Reason Stop Dose Admin Lactated Ringer's 1,000 mls @ 100 mls/hr 03/05/18 01:00 03/05/18 00:58 Ringers, Lactated IV 100 mls/hr ASDIRECTED HARLEEN Administration Pantoprazole Sodium 40 mg 03/05/18 01:00 03/05/18 00:58 Protonix Iv IVPUSH 40 mg Q24H HARLEEN Administration Discontinued Medications Generic Name Dose Route Start Last Admin Trade Name Freq PRN Reason Stop Dose Admin Ondansetron HCl 4 mg 03/05/18 00:50 03/05/18 00:58 Zofran IVPUSH 03/05/18 00:51 4 mg Q6H ONE Administration Departure - Departure Time of Disposition: 01:45 Disposition: DC/Tfer to [facility] 02 Clinical Impression: GI bleed Qualifiers: GI bleed type/associated pathology: gastritis Gastritis type: alcoholic Qualified Code(s): K29.21 - Alcoholic gastritis with bleeding - Discharge Information - Problem List & Annotations (1) GI bleed SNOMED Code(s): 45032739 Code(s): K92.2 - GASTROINTESTINAL HEMORRHAGE, UNSPECIFIED Status: Acute Qualifiers: GI bleed type/associated pathology: unspecified gastrointestinal hemorrhage type Qualified Code(s): K92.2 - Gastrointestinal hemorrhage, unspecified (2) Esophageal varices in alcoholic cirrhosis SNOMED Code(s): 902265813 Code(s): K70.30 - ALCOHOLIC CIRRHOSIS OF LIVER WITHOUT ASCITES; I85.10 - SECONDARY ESOPHAGEAL VARICES WITHOUT BLEEDING Status: Chronic (3) Thrombocytopenia SNOMED Code(s): 611090633 Code(s): D69.6 - THROMBOCYTOPENIA, UNSPECIFIED Status: Chronic - Problem List Review Problem List Initiated/Reviewed/Updated: Yes - My Orders Last 24 Hours: My Active Orders 03/05/18 00:28 OCCULT BLOOD SCREEN [OP] Stat 03/05/18 01:00 Lactated Ringers [Ringers, Lactated] 1,000 ml IV ASDIRECTED Pantoprazole [ProTONIX IV] 40 mg IVPUSH Q24H 03/05/18 01:15 Pantoprazole [ProTONIX IV] 40 mg IVPUSH Q24H - Assessment/Plan Last 24 Hours: My Active Orders 03/05/18 00:28 OCCULT BLOOD SCREEN [OP] Stat 03/05/18 01:00 Lactated Ringers [Ringers, Lactated] 1,000 ml IV ASDIRECTED Pantoprazole [ProTONIX IV] 40 mg IVPUSH Q24H 03/05/18 01:15 Pantoprazole [ProTONIX IV] 40 mg IVPUSH Q24H Plan: Consultation with Dr. Gilman, hospitalist at [facility]. Dr. Gilman accepted transfer for further evaluation. Corrie will be directly admitted to # [id number] at the [facility]. Corrie was given 80mg of Protonix IV, 4mg of Zofran IV and 1 Liter of NS while in emergency room. Vital signs stable during her time in ER. Transfer via ALS. Risks and benefits discussed with Corrie in regards to transfer. Risks of transfer : worsening of condition en route, MVA, possible . Benefits of transfer: higher level of care facility, appropriate diagnostics, surgical intervention if needed and improvement of condition. Risks of non-transfer: worsening of condition, no appropriate surgical intervention if needed. Benefits of non- transfer: staying close to home. Patient verbalized understanding and is in agreement with ALS transfer.
[2018-03-05 01:44] VITALS: BP 112/74
== END 2018-03-05 02:02 ==
LOC: CC.ED 00:05
DX: K29.21 Alcoholic gastritis with bleeding (principal); F17.210 Nicotine dependence, cigarettes, uncomplicated; Z88.5 Allergy status to narcotic agent; Z91.041 Radiographic dye allergy status; Z91.048 Other nonmedicinal substance allergy status; Z79.899 Other long term (current) drug therapy
CPT/HCPCS: 36415; 82270; 83615; 85025; 85610; 85730; 96361; 96374; 96375; 99285; C9113; J2405; J7120

== ENCOUNTER 2018-10-30 14:56 | Emergency (ER) | payer OTHER ==
[2018-10-30] MEDS: LORazepam 2 MG/ML Syringe ONE (15:56)
[2018-10-30] MEDS: LORazepam 2 MG/ML Syringe IVPUSH ONE (15:56)
[2018-10-30] MEDS: Aspirin 81 MG Tab.Chew PO ONE (16:06)
[2018-10-30 16:11] LABS: CHLORIDE,CL 104 mEq/L (98-106); SODIUM,NA 141 mEq/L (136-145)
[2018-10-30] MEDS: Nitroglycerin 0.4 MG Tab.SL SL PRN (16:14)
[2018-10-30 16:22] VITALS: BP 143/103
--- NOTE | 2018-10-30 16:56 | EDM.PDOC ---
ED HPI GENERAL MEDICAL PROBLEM - General Stated Complaint: anxiety Time Seen by Provider: 10/30/18 15:35 Source of Information: Reports: Patient History Limitations: Reports: No Limitations - History of Present Illness INITIAL COMMENTS - FREE TEXT/NARRATIVE: Presents to the ER with complaints of anxiety attack as she quit taking her Trazadone and Requip as she didn't feel like they were helping. She stopped these about 3 weeks ago. These are prescribed by Dr. Aleshia Panda from [facility] and by psychologist in [place] that she swees. She states that if she drinks a few beers it helps her relax and feel better and get a couple of hours of sleep. She was discharged from [facility] 09/06 with SOB and chest pain and worked up and negative. Has long standing history of liver failure, cirrhosis, thrombcytopenia, ascites, alcoholism and varices. Continues to drink daily. After being here for a time she complained of some chest pain and still feeling SOB. Has noted that she is starting to develop some ascites on the left side of abdomen. Denies any cough, fever or chills. Follows at the [place] with Dr. Aleshia Panda as her PCP. Has been transferred to [place] multiple times with same symptoms. Onset: Gradual Location: Reports: Chest, Abdomen Associated Symptoms: Reports: Chest Pain, Shortness of Breath. Denies: Cough, Fever/Chills, Nausea/Vomiting Chest Pain Score (Numeric/FACES): 4 - Related Data Allergies Allergy/AdvReac Type Severity Reaction Status Date / Time morphine Allergy Hallucinati Verified 10/30/18 15:[address] contrast dye Allergy Shortness Uncoded 10/30/18 15:25 of Breath laundry soa[ Allergy Rash Uncoded 10/30/18 15:25 Home Meds: Home Meds Folic Acid 1 mg PO DAILY 02/07/18 [History] Thiamine HCl [Vitamin B-1] 100 mg PO DAILY 02/07/18 [History] Cefuroxime [Ceftin] 250 mg PO BID 09/03/18 [History] Multivitamin [Multivitamins] 1 each PO DAILY 09/03/18 [History] rOPINIRole [Requip] 0.25 mg PO DAILY PRN 09/03/18 [History] traZODone HCl [Trazodone HCl] 50 mg PO DAILY 09/03/18 [History] Past Medical History HEENT History: Reports: Other (See Below) Other HEENT History: BLOOD VESSEL THAT BURST IN HER THROAT; 2017 Cardiovascular History: Reports: Heart Murmur Respiratory History: Reports: None Gastrointestinal History: Reports: Cirrhosis, GI Bleed, Other (See Below) Other Gastrointestinal History: liver failure. ascites Genitourinary History: Reports: None DE ALCHOLIZER History: Reports: Endometriosis Musculoskeletal History: Reports: Fracture Neurological History: Reports: Neuropathy, Peripheral Psychiatric History: Reports: Addiction, Anxiety, Panic Attack, PTSD, Other ( See Below) Other Psychiatric History: ETOH abuse Endocrine/Metabolic History: Reports: None Hematologic History: Reports: Anemia Immunologic History: Reports: None Oncologic (Cancer) History: Reports: None Dermatologic History: Reports: None - Infectious Disease History Infectious Disease History: Reports: Chicken Pox Other Infectious Disease History: hx mrsa in area of hernia repair - Past Surgical History Cardiovascular Surgical History: Reports: None Respiratory Surgical History: Reports: None GI Surgical History: Reports: Hernia Repair/Other Female Surgical History: Reports: None Musculoskeletal Surgical History: Reports: Hip Replacement Oncologic Surgical History: Reports: None Social & Family History - Family History Cardiac: Reports: CAD, High Cholesterol, Hypertension GI: Reports: Other (See Below) Musculoskeletal: Reports: Osteoarthritis - Tobacco Use Smoking Status *Q: Former Smoker Years of Tobacco use: 15 Used Tobacco, but Quit: No Second Hand Smoke Exposure: Yes - Caffeine Use Caffeine Use: Reports: Soda Caffeine Use Comment: 3 cans a day - Living Situation & Occupation Living situation: Reports: Single, Alone Occupation: Disabled ED ROS GENERAL - Review of Systems Review Of Systems: See Below Constitutional: Reports: Weakness. Denies: Fever, Chills HEENT: Reports: No Symptoms Respiratory: Reports: Shortness of Breath. Denies: Wheezing, Cough, Sputum Cardiovascular: Reports: Chest Pain, Dyspnea on Exertion. Denies: Blood Pressure Problem, Edema, Lightheadedness GI/Abdominal: Denies: Abdominal Pain, Black Stool, Bloody Stool, Diarrhea, Nausea, Vomiting : Reports: No Symptoms Musculoskeletal: Reports: No Symptoms Skin: Reports: Jaundice Neurological: Denies: Confusion Psychiatric: Reports: Anxiety ED EXAM, GENERAL - Physical Exam Exam: See Below Exam Limited By: No Limitations General Appearance: Alert, WD/WN, No Apparent Distress Eye Exam: Bilateral Eye: PERRL Ears: Normal External Exam, Normal Canal, Normal TMs Nose: Normal Inspection Throat/Mouth: Normal Inspection, Normal Oropharynx, No Airway Compromise Head: Atraumatic, Normocephalic Neck: Normal Inspection, Supple, Non-Tender, Full Range of Motion Respiratory/Chest: No Respiratory Distress, Lungs Clear, Normal Breath Sounds Cardiovascular: Regular Rate, Rhythm, No Edema GI/Abdominal: Normal Bowel Sounds, Soft, Non-Tender, Other (left side does have some extra fluid accumulating. She states that her ascites previously tends to start on one side or the other rather than generalized. She has had multiple paracentesis for this in the past in [place].) Extremities: Normal Inspection, Normal Range of Motion, Non-Tender, No Pedal Edema Neurological: Alert, Oriented Psychiatric: Anxious Skin Exam: Warm, Dry, Intact, Jaundice Course - Vital Signs Last Recorded V/S: Last Vital Signs Temp 97.4 F 10/30/18 15:10 Pulse 122 H 10/30/18 16:14 Resp 20 10/30/18 15:10 BP 135/96 H 10/30/18 16:14 Pulse Ox 96 10/30/18 15:10 - Orders/Labs/Meds Labs: Laboratory Tests 10/30/18 10/30/18 10/30/18 Range/Units 15:40 15:40 15:40 WBC 3.9 L (5.0-10.0) 10^3/uL RBC 3.15 L (4.00-5.50) 10^6/uL Hgb 12.2 (12.0-16.0) g/dL Hct 35.5 L (37.0-47.0) % MCV 112.7 H (82.0-94.0) fL MCH 38.7 H (27.0-32.0) pg MCHC 34.4 (33.0-38.0) g/dL RDW Coeff of Renae 15.6 H (11.0-15.0) % Plt Count 29 L* (150-400) 10^3/uL Neut % (Auto) 53.5 (35-85) % Lymph % (Auto) 28.1 (10-55) % [place] % (Auto) 16.1 H (0-16) % Eos % (Auto) 1.5 (0-5) % Baso % (Auto) 0.8 (0-3) % Neut # (Auto) 2.10 (1.80-7.00) 10^3/uL Lymph # (Auto) 1.10 (1.00-4.80) 10^3/uL [place] # (Auto) 0.63 (0.00-0.80) 10^3/uL Eos # (Auto) 0.06 (0.00-0.45) 10^3/uL Baso # (Auto) 0.03 10^3/uL PT 15.5 H (9.7-12.3) SEC INR 1.54 H (0.92-1.18) APTT 29.5 (23.2-32.3) SEC D-Dimer, Quantitative 3.97 H (0.00-0.50) Sodium 141 (136-145) mEq/L Potassium 3.2 L (3.5-5.0) mEq/L Chloride 104 (98-106) mEq/L Carbon Dioxide 25 (21-32) mmol/L BUN 7 (7-18) mg/dL Creatinine 0.9 (0.6-1.0) mg/dL Est Cr Clr Drug Dosing TNP Estimated GFR (MDRD) > 60 (>=60) mL/min Glucose 117 H D (75-99) mg/dL Calcium 8.0 L (8.4-10.1) mg/dL Lactate Dehydrogenase 316 H (100-190) U/L Creatine Kinase 67 (21-215) U/L Troponin I 0.058 (0.00-0.06) ng/mL Meds: Medications Discontinued Medications Generic Name Dose Route Start Last Admin Trade Name Mildred PRN Reason Stop Dose Admin Aspirin 324 mg 10/30/18 16:04 10/30/18 16:06 Aspirin PO 10/30/18 16:05 324 mg ONETIME ONE Administration Lorazepam Confirm 10/30/18 15:41 10/30/18 15:56 Ativan Administered 10/30/18 15:42 Not Given Dose 2 mg .ROUTE .STK-MED ONE Lorazepam 2 mg 10/30/18 15:52 10/30/18 15:56 Ativan IVPUSH 10/30/18 15:53 2 mg ONETIME ONE Administration Nitroglycerin 0.4 mg 10/30/18 16:12 10/30/18 16:14 Nitrostat SL 0.4 mg Q5M PRN Administration Chest Pain - Re-Assessments/Exams Free Text/Narrative Re-Assessment/Exam: 10/30/[address] Jones, oncology at [facility] in [place] was contacted and discussed her labs especially her platelets. He recommended not treating them unless they are below 10 as she is not bleeding. If any bleeding then she would need transfusion. Other labs have been addressed when she was hospitalized recently and are due to her chronic conditions. Recommended that she follows up closely with her PCP. Departure - Departure Time of Disposition: 16:52 Disposition: Home, Self-Care 01 Condition: Poor Clinical Impression: Anxiety, Alcohol abuse, Thrombocytopenia Alcoholic cirrhosis of liver Qualifiers: Ascites presence: with ascites Qualified Code(s): K70.31 - Alcoholic cirrhosis of liver with ascites Anemia Qualifiers: Anemia type: bone marrow failure Bone marrow failure anemia type: other bone marrow failure Qualified Code(s): D61.89 - Other specified aplastic anemias and other bone marrow failure syndromes - Discharge Information *PRESCRIPTION DRUG MONITORING PROGRAM REVIEWED*: No *COPY OF PRESCRIPTION DRUG MONITORING REPORT IN PATIENT MAC: No Referrals: PCP,Unknown [Primary Care Provider] - Forms: ED Department Discharge Additional Instructions: Restart trazadone and ropinirole Call Dr panda and or psychologist and discuss your anxiety that is not controlled on current meds DO not stop your meds unless talking to Dr. Panda Follow up with Dr. Panda as soon as able due to decreasing platelet counts and increase in ascites If any bleeding occurs you need to return to ER immediately. - Problem List & Annotations (1) Anxiety SNOMED Code(s): 55880118 Code(s): F41.9 - ANXIETY DISORDER, UNSPECIFIED Status: Acute Priority: High (2) Thrombocytopenia SNOMED Code(s): 945373225 Code(s): D69.6 - THROMBOCYTOPENIA, UNSPECIFIED Status: Chronic (3) Alcohol abuse SNOMED Code(s): 45633552 Code(s): F10.10 - ALCOHOL ABUSE, UNCOMPLICATED Status: Chronic Priority: Low Onset Date: ~03/27/17 (4) Medical non-compliance SNOMED Code(s): 120792758 Code(s): Z91.19 - PATIENT'S NONCOMPLIANCE W OTH MEDICAL TREATMENT AND REGIMEN Status: Chronic Priority: Low Onset Date: ~03/27/17 - Problem List Review Problem List Initiated/Reviewed/Updated: Yes - Assessment/Plan Plan: Follow up with Dr. Panda, and her cushion worker as scheduled.
== END 2018-10-30 17:15 | disposition home or self-care (01) ==
LOC: CC.ED 14:56
DX: F41.9 Anxiety disorder, unspecified (principal); K70.31 Alcoholic cirrhosis of liver with ascites; F10.20 Alcohol dependence, uncomplicated; D61.89 Other specified aplastic anemias and other bone marrow failure syndromes; D69.6 Thrombocytopenia, unspecified; Z88.5 Allergy status to narcotic agent; Z91.041 Radiographic dye allergy status; Z87.891 Personal history of nicotine dependence
CPT/HCPCS: 36415; 71046; 80048; 82550; 83615; 84484; 85025; 85379; 85610; 85730; 93005; 96374; 99285; A9270-GY; J2060

== ENCOUNTER 2019-06-10 10:14 | Emergency (ER) | payer OTHER ==
[2019-06-10 10:51] LABS: CHLORIDE,CL 94 mEq/L (98-106); SODIUM,NA 129 mEq/L (136-145)
[2019-06-10] MEDS ORDERED: NS + KCl 20mEq/L 1,000 ML ONE (11:40)
[2019-06-10] MEDS ORDERED: Magnesium Sulfate/D5W 2 GM in Premix Bag 1 BAG IV ONE ×2 (11:51→12:28)
[2019-06-10] MEDS ORDERED: NS + KCl 20mEq/L 1,000 ML IV SCH (12:15)
[2019-06-10] MEDS ORDERED: LORazepam 0.5 MG Tab PO ONE (13:39)
[2019-06-10 14:50] VITALS: BP 95/54
--- NOTE | 2019-06-10 18:17 | EDM.PDOCBH ---
ED HPI GENERAL MEDICAL PROBLEM - General Chief Complaint: Behavioral/Psych Stated Complaint: ER Time Seen by Provider: 06/10/19 10:25 Source of Information: Reports: Patient History Limitations: Reports: No Limitations - History of Present Illness INITIAL COMMENTS - FREE TEXT/NARRATIVE: Patient presents to ER with the police for concerns with hallucinations. She contacted the police as she felt her home was invested with cats. She relates she saw them everywhere, no evidence of any cats in her home. Apparently also has been seeing dogs that weren't present. Patient feels these were very real images to her. Police concerned that she may need to be medically cleared for the [facility]. Patient states she has been more weak as of late. Has not been eating well. Does not feel more short of breath than usual, no chest pain. Mild nausea at times. Has loose incontinent stools at times. Unaware of any fevers. Patient has history of alcohol abuse, denies having any as of late. History of alcoholic cirrhosis, pulmonary hypertension. Last visit [place] October [place] the [place]. Notes do indicate she was transferred to [facility] in August for CHF. Onset: Gradual Duration: Day(s): Associated Symptoms: Reports: Confusion, Weakness. Denies: Chest Pain, Cough, Fever/Chills, Loss of Appetite, Nausea/Vomiting, Shortness of Breath - Related Data Allergies Allergy/AdvReac Type Severity Reaction Status Date / Time morphine Allergy Hallucinati Verified 06/10/19 10:[address] contrast dye Allergy Shortness Uncoded 06/10/19 10:31 of Breath laundry soa[ Allergy Rash Uncoded 06/10/19 10:31 Home Meds: Home Meds Folic Acid 1 mg PO DAILY 02/07/18 [History] Thiamine HCl [Vitamin B-1] 100 mg PO DAILY 02/07/18 [History] Cefuroxime [Ceftin] 250 mg PO BID 09/03/18 [History] Multivitamin [Multivitamins] 1 each PO DAILY 09/03/18 [History] rOPINIRole [Requip] 0.25 mg PO DAILY PRN 09/03/18 [History] traZODone HCl [Trazodone HCl] 50 mg PO DAILY 09/03/18 [History] Past Medical History HEENT History: Reports: Other (See Below) Other HEENT History: BLOOD VESSEL THAT BURST IN HER THROAT; 2017 Cardiovascular History: Reports: Heart Murmur Respiratory History: Reports: None Gastrointestinal History: Reports: Cirrhosis, GI Bleed, Other (See Below) Other Gastrointestinal History: liver failure. ascites Genitourinary History: Reports: None PATTERN ASSEMBLER History: Reports: Endometriosis Musculoskeletal History: Reports: Fracture Neurological History: Reports: Neuropathy, Peripheral Psychiatric History: Reports: Addiction, Anxiety, Panic Attack, PTSD, Other ( See Below) Other Psychiatric History: ETOH abuse Endocrine/Metabolic History: Reports: None Hematologic History: Reports: Anemia Immunologic History: Reports: None Oncologic (Cancer) History: Reports: None Dermatologic History: Reports: None - Infectious Disease History Infectious Disease History: Reports: Chicken Pox Other Infectious Disease History: hx mrsa in area of hernia repair - Past Surgical History Cardiovascular Surgical History: Reports: None Respiratory Surgical History: Reports: None GI Surgical History: Reports: Hernia Repair/Other Female Surgical History: Reports: None Musculoskeletal Surgical History: Reports: Hip Replacement Oncologic Surgical History: Reports: None Social & Family History - Family History Cardiac: Reports: CAD, High Cholesterol, Hypertension GI: Reports: Other (See Below) Musculoskeletal: Reports: Osteoarthritis - Tobacco Use Smoking Status *Q: Former Smoker Years of Tobacco use: 20 Packs/Tins Daily: 1 Used Tobacco, but Quit: No - Caffeine Use Caffeine Use: Reports: Soda Caffeine Use Comment: 3 cans a day - Alcohol Use Days Per Week of Alcohol Use: 7 Number of Drinks Per Day: 3 Total Drinks Per Week: 21 - Recreational Drug Use Recreational Drug Use: No - Living Situation & Occupation Living situation: Reports: Single, Alone Occupation: Disabled ED ROS GENERAL - Review of Systems Review Of Systems: See Below Constitutional: Reports: Malaise, Weakness, Fatigue. Denies: Fever, Chills HEENT: Denies: Ear Pain, Rhinitis, Sinus Problem, Throat Pain, Vision Change Respiratory: Denies: Shortness of Breath, Cough Cardiovascular: Reports: Edema. Denies: Chest Pain, Lightheadedness Endocrine: Reports: Fatigue GI/Abdominal: Reports: Distension. Denies: Abdominal Pain, Nausea, Vomiting : Reports: No Symptoms Musculoskeletal: Reports: No Symptoms Skin: Reports: Jaundice Neurological: Reports: Weakness Psychiatric: Reports: Hallucinations ED EXAM, BEHAVIORAL HEALTH - Physical Exam Exam: See Below Exam Limited By: No Limitations General Appearance: Alert, WD/WN, No Apparent Distress Ears: Normal External Exam, Normal TMs Nose: Normal Inspection, Normal Mucosa, No Blood Throat/Mouth: Normal Inspection, Normal Oropharynx Head: Normocephalic Neck: Normal Inspection, Supple, Non-Tender Respiratory/Chest: Decreased Breath Sounds Cardiovascular: Regular Rate, Rhythm GI/Abdominal: Normal Bowel Sounds, Soft, Non-Tender Extremities: Normal Range of Motion Neurological: Alert, Normal Mood/Affect, Normal Gait, Oriented x 3, Tremor Psychiatric: Alert, Normal Affect, Normal Cognition, Normal Mood, Oriented Skin Exam: Warm, Dry, Jaundice, Other (ulcers noted to buttocks) COURSE, BEHAVIORAL HEALTH COMP - Course Vital Signs: Last Vital Signs Temp 100.0 F 06/10/19 13:50 Pulse 118 H 06/10/19 13:50 Resp 20 06/10/19 13:50 BP 95/54 L 06/10/19 13:50 Pulse Ox 97 06/10/19 13:50 Orders, Labs, Meds: Laboratory Tests 06/10/19 06/10/19 06/10/19 Range/Units 10:34 10:34 11:12 WBC 4.9 L (5.0-10.0) 10^3/uL RBC 2.61 L (4.00-5.50) 10^6/uL Hgb 11.4 L (12.0-16.0) g/dL Hct 32.4 L (37.0-47.0) % MCV 124.1 H (82.0-94.0) fL MCH 43.7 H (27.0-32.0) pg MCHC 35.2 (33.0-38.0) g/dL RDW Coeff of Renae 16.8 H (11.0-15.0) % Plt Count 12 L* (150-400) 10^3/uL Add Manual Diff Yes Neutrophils % (Manual) 69 (35-85) % Band Neutrophils % 6 H (0-5) % Lymphocytes % (Manual) 6 L (21-55) % Monocytes % (Manual) 15 H (2-12) % Eosinophils % (Manual) 1 (0-5) % Basophils % (Manual) 1 (0-3) % Metamyelocytes % 2 % Platelet Estimate Marked dec L (ADEQUATE) Macrocytosis 2+ moderate H (NOT SEEN) Sodium 129 L (136-145) mEq/L Potassium 3.0 L (3.5-5.0) mEq/L Chloride 94 L (98-106) mEq/L Carbon Dioxide 24 (21-32) mmol/L BUN 11 D (7-18) mg/dL Creatinine 0.9 (0.6-1.0) mg/dL Est Cr Clr Drug Dosing 68.73 mL/min Estimated GFR (MDRD) > 60 (>=60) mL/min Glucose 127 H (75-99) mg/dL Calcium 7.7 L (8.4-10.1) mg/dL Magnesium 1.2 L (1.8-2.4) mg/dL Total Bilirubin 10.6 H (0.0-1.0) mg/dL AST 107 H (15-37) U/L ALT 35 (12-78) U/L Alkaline Phosphatase 131 H (46-116) U/L C-Reactive Protein 3.2 H (0.2-0.8) mg/dL NT-Pro-B Natriuret Pep (0-1000) pg/mL Total Protein 6.1 L (6.4-8.2) g/dL Albumin 2.1 L (3.4-5.0) g/dL Urine Color Dark yellow (YELLOW) Urine Appearance Clear (CLEAR) Urine pH 6.0 (4.5-8.0) Ur Specific [place] 1.010 (1.003-1.020) Urine Protein Negative (NEGATIVE) mg/dL Urine Glucose (UA) Negative (NEGATIVE) mg/dL Urine Ketones Trace H (NEGATIVE) mg/dL Urine Occult Blood Moderate H (NEGATIVE) Urine Nitrite Negative (NEGATIVE) Urine Bilirubin Large H (NEGATIVE) Urine Urobilinogen 4.0 H (0.2-1.0) EU/dL Ur Leukocyte Esterase Trace H (NEGATIVE) Urine RBC 0-5 (0-5) /HPF Urine WBC Not seen (0-5) /HPF Ur Epithelial Cells Moderate H (NOT SEEN) /HPF Urine Yeast Occasional H (NOT SEEN) /HPF Urine Opiates Screen (NEGATIVE) Ur Oxycodone Screen (NEGATIVE) Urine Methadone Screen (NEGATIVE) Ur Barbiturates Screen (NEGATIVE) U Tricyclic Antidepress (NEGATIVE) Ur Phencyclidine Scrn (NEGATIVE) Ur Amphetamine Screen (NEGATIVE) U Methamphetamines Scrn (NEGATIVE) Urine MDMA Screen (NEGATIVE) U Benzodiazepines Scrn (NEGATIVE) Urine Cocaine Screen (NEGATIVE) U Marijuana (THC) Screen (NEGATIVE) Ethyl Alcohol (0-3) mg/dL 06/10/19 06/10/19 06/10/19 Range/Units 11:12 11:20 11:36 WBC (5.0-10.0) 10^3/uL RBC (4.00-5.50) 10^6/uL Hgb (12.0-16.0) g/dL Hct (37.0-47.0) % MCV (82.0-94.0) fL MCH (27.0-32.0) pg MCHC (33.0-38.0) g/dL RDW Coeff of Renae (11.0-15.0) % Plt Count (150-400) 10^3/uL Add Manual Diff Neutrophils % (Manual) (35-85) % Band Neutrophils % (0-5) % Lymphocytes % (Manual) (21-55) % Monocytes % (Manual) (2-12) % Eosinophils % (Manual) (0-5) % Basophils % (Manual) (0-3) % Metamyelocytes % % Platelet Estimate (ADEQUATE) Macrocytosis (NOT SEEN) Sodium (136-145) mEq/L Potassium (3.5-5.0) mEq/L Chloride (98-106) mEq/L Carbon Dioxide (21-32) mmol/L BUN (7-18) mg/dL Creatinine (0.6-1.0) mg/dL Est Cr Clr Drug Dosing mL/min Estimated GFR (MDRD) (>=60) mL/min Glucose (75-99) mg/dL Calcium (8.4-10.1) mg/dL Magnesium (1.8-2.4) mg/dL Total Bilirubin (0.0-1.0) mg/dL AST (15-37) U/L ALT (12-78) U/L Alkaline Phosphatase (46-116) U/L C-Reactive Protein (0.2-0.8) mg/dL NT-Pro-B Natriuret Pep 1449 H (0-1000) pg/mL Total Protein (6.4-8.2) g/dL Albumin (3.4-5.0) g/dL Urine Color (YELLOW) Urine Appearance (CLEAR) Urine pH (4.5-8.0) Ur Specific [place] (1.003-1.020) Urine Protein (NEGATIVE) mg/dL Urine Glucose (UA) (NEGATIVE) mg/dL Urine Ketones (NEGATIVE) mg/dL Urine Occult Blood (NEGATIVE) Urine Nitrite (NEGATIVE) Urine Bilirubin (NEGATIVE) Urine Urobilinogen (0.2-1.0) EU/dL Ur Leukocyte Esterase (NEGATIVE) Urine RBC (0-5) /HPF Urine WBC (0-5) /HPF Ur Epithelial Cells (NOT SEEN) /HPF Urine Yeast (NOT SEEN) /HPF Urine Opiates Screen Negative (NEGATIVE) Ur Oxycodone Screen Negative (NEGATIVE) Urine Methadone Screen Negative (NEGATIVE) Ur Barbiturates Screen Negative (NEGATIVE) U Tricyclic Antidepress Negative (NEGATIVE) Ur Phencyclidine Scrn Negative (NEGATIVE) Ur Amphetamine Screen Negative (NEGATIVE) U Methamphetamines Scrn Negative (NEGATIVE) Urine MDMA Screen Negative (NEGATIVE) U Benzodiazepines Scrn Negative (NEGATIVE) Urine Cocaine Screen Negative (NEGATIVE) U Marijuana (THC) Screen Negative (NEGATIVE) Ethyl Alcohol < 3 (0-3) mg/dL Medications Discontinued Medications Generic Name Dose Route Start Last Admin Trade Name Freq PRN Reason Stop Dose Admin Potassium Chloride/Sodium Chloride Confirm 06/10/19 11:40 06/10/19 12:57 Normal Saline With 20 Meq Kcl Administered 06/10/19 11:41 Not Given Dose 1,000 mls @ as directed .ROUTE .STK-MED ONE Magnesium Sulfate/Dextrose 2 200 mls @ 100 mls/hr 06/10/19 11:51 06/10/19 12: 58 gm/ Premix IV 06/10/19 13:50 100 mls/hr ONETIME ONE Administration Potassium Chloride/Sodium Chloride 1,000 mls @ 200 mls/hr 06/10/19 12:15 11:30 Normal Saline With 20 Meq Kcl IV 200 mls/hr ASDIRECTED HARLEEN Administration Magnesium Sulfate/Dextrose 2 200 mls @ 100 mls/hr 06/10/19 12:28 06/10/19 13: 47 gm/ Premix IV 06/10/19 14:27 100 mls/hr ONETIME ONE Administration Lorazepam 1 mg 06/10/19 13:39 06/10/19 13:45 Ativan PO 06/10/19 13:40 1 mg ONETIME ONE Administration Re-Assessment/Re-Exam: Patient is conversive, appropriate. Does feel that the images at home were real to her. Denies any alcohol or drug intake. Admits has been more weak. Has ulcers to buttocks, states are from lenin products as she is incontinent of stools at times due to urgency. Labs noted, multiple abnormalities. Platelets [address]2530. Does have history of thrombocytopenia but historically not this low. Creatinine 0.9. Sodium 129, potassium 3, magnesium 1.2. Bilirubin 10.6. Last bilirubin was 4 in October. Started IV Magnesium 2 gm. Normal saline with potassium Contacted [facility] in [place] as Dr. Aleshia Baez her primary. Have not seen patient in many months, do feel should arrange for transfer to [facility] in [place]. Contacted [facility] in [place] and spoke with Dr. Shafer who did feel patient had chronic complications and does need more specialized care than could receive at the [place]. Contacted [facility] and spoke with Dr. Ching, status given. Recommended additional 2 gm of Magnesium and agreed to accept the patient in transfer. Patient is stable at this time, eating dinner. No further psychosis noted while here Patient informed of risks and benefits. Risks of ambulance transfer discussed with patient to include vehicle crash, worsening status and . Benefits of transfer include specialized care for history of cirrhosis, pulmonary hypertension and multiple electrolyte abnormalities. Risks of non transfer include worsening status and potential . Benefits of non transfer include care to home. Patient agrees to transfer Departure - Departure Time of Disposition: 13:00 Disposition: DC/Tfer to [facility] 02 Condition: Undetermined Clinical Impression: Anxiety, Thrombocytopenia, Hallucinations Alcoholic cirrhosis of liver Qualifiers: Ascites presence: with ascites Qualified Code(s): K70.31 - Alcoholic cirrhosis of liver with ascites Anemia Qualifiers: Anemia type: bone marrow failure Bone marrow failure anemia type: other bone marrow failure Qualified Code(s): D61.89 - Other specified aplastic anemias and other bone marrow failure syndromes - Discharge Information *PRESCRIPTION DRUG MONITORING PROGRAM REVIEWED*: No *COPY OF PRESCRIPTION DRUG MONITORING REPORT IN PATIENT MAC: No Referrals: PCP,Unknown [Primary Care Provider] - Forms: ED Department Discharge Additional Instructions: Transfer to [facility] to Dr. Ching.
== END 2019-06-10 13:50 ==
LOC: CC.ED 10:14
DX: K70.31 Alcoholic cirrhosis of liver with ascites (principal); R44.1 Visual hallucinations; D61.89 Other specified aplastic anemias and other bone marrow failure syndromes; D69.6 Thrombocytopenia, unspecified; F41.9 Anxiety disorder, unspecified; L98.419 Non-pressure chronic ulcer of buttock with unspecified severity; F10.20 Alcohol dependence, uncomplicated; Z88.5 Allergy status to narcotic agent; Z91.040 Latex allergy status; Z87.891 Personal history of nicotine dependence
CPT/HCPCS: 36415; 80053; 80305-QW; 81001; 83735; 83880; 85025; 86140; 96365; 96366; 96368; 99284; 99285-25; A9270-GY; G0480; J3475; J3480

== ENCOUNTER 2019-11-21 20:19 | Emergency (ER) | payer OTHER ==
--- NOTE | 2019-11-21 20:24 | EDM.PDOC ---
ED HPI GENERAL MEDICAL PROBLEM - General Chief Complaint: Fever Stated Complaint: "hot and cold" Time Seen by Provider: 11/21/19 20:24 Source of Information: Reports: Patient History Limitations: Reports: No Limitations - History of Present Illness INITIAL COMMENTS - FREE TEXT/NARRATIVE: Patient to the emergency department with fever and chills as well as a cough for the last few days. The patient's temperature is 103.9. The patient does have a strong history of liver disease. The patient denies any ear, nose, or throat symptoms denies any chest pain or shortness of breath denies any unusual abdominal pain has had some nausea no vomiting has had loose stools however she does take the lactulose and her stool is unchanged from normal. There is no black or bloody stools there is no confusion. The patient denies any sick contacts Onset: Gradual Duration: Day(s): Location: Denies: Abdomen, Back Quality: Reports: Ache Severity: Moderate Improves with: Reports: None Worsens with: Reports: None Associated Symptoms: Reports: Cough, Fever/Chills, Nausea/Vomiting (Nausea no vomiting). 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 [Unable to Verify Home Med List] 11/21/19 [History] Past Medical History HEENT History: Reports: Other (See Below) Other HEENT History: BLOOD VESSEL THAT BURST IN HER THROAT; 2017 Cardiovascular History: Reports: Heart Murmur Respiratory History: Reports: None Gastrointestinal History: Reports: Cirrhosis, GI Bleed, Other (See Below) Other Gastrointestinal History: liver failure. ascites Genitourinary History: Reports: None [employer] History: Reports: Endometriosis Musculoskeletal History: Reports: Fracture Neurological History: Reports: Neuropathy, Peripheral Psychiatric History: Reports: Addiction, Anxiety, Panic Attack, PTSD, Other ( See Below) Other Psychiatric History: ETOH abuse Endocrine/Metabolic History: Reports: None Hematologic History: Reports: Anemia Immunologic History: Reports: None Oncologic (Cancer) History: Reports: None Dermatologic History: Reports: None - Infectious Disease History Infectious Disease History: Reports: Chicken Pox Other Infectious Disease History: hx mrsa in area of hernia repair - Past Surgical History Cardiovascular Surgical History: Reports: None Respiratory Surgical History: Reports: None GI Surgical History: Reports: Hernia Repair/Other Female Surgical History: Reports: None Musculoskeletal Surgical History: Reports: Hip Replacement Oncologic Surgical History: Reports: None Social & Family History - Family History Cardiac: Reports: CAD, High Cholesterol, Hypertension GI: Reports: Other (See Below) Musculoskeletal: Reports: Osteoarthritis - Caffeine Use Caffeine Use: Reports: Soda Caffeine Use Comment: 3 cans a day - Living Situation & Occupation Living situation: Reports: Single, Alone Occupation: Disabled ED ROS GENERAL - Review of Systems Review Of Systems: See Below Constitutional: Reports: Fever, Chills HEENT: Reports: No Symptoms. Denies: Ear Pain, Rhinitis, Throat Pain Respiratory: Reports: Cough. Denies: Shortness of Breath, Wheezing Cardiovascular: Reports: No Symptoms. Denies: Chest Pain, Edema Endocrine: Reports: No Symptoms GI/Abdominal: Reports: Nausea. Denies: Abdominal Pain, Black Stool, Bloody Stool, Diarrhea, Decreased Appetite, Difficulty Swallowing, Melena, Vomiting : Reports: No Symptoms Musculoskeletal: Reports: No Symptoms Skin: Reports: No Symptoms, Other (The patient is jaundice which is normal for this patient at this point). Denies: Bruising, Rash Neurological: Reports: No Symptoms. Denies: Confusion, Dizziness, Headache, Weakness, Change in Speech, Gait Disturbance Psychiatric: Reports: No Symptoms ED EXAM, GENERAL - Physical Exam Exam: See Below Exam Limited By: No Limitations General Appearance: Alert, WD/WN, No Apparent Distress Eye Exam: Bilateral Eye: PERRL Ears: Normal External Exam, Normal Canal, Hearing Grossly Normal, Normal TMs Ear Exam: Bilateral Ear: TM normal Nose: Normal Inspection, Normal Mucosa Throat/Mouth: Normal Inspection, Normal Lips, Normal Oropharynx, Normal Voice, No Airway Compromise Head: Atraumatic, Normocephalic Neck: Normal Inspection, Supple, Non-Tender, Full Range of Motion Respiratory/Chest: No Respiratory Distress, Lungs Clear, Normal Breath Sounds, Chest Non-Tender Cardiovascular: Normal Peripheral Pulses, Regular Rate, Rhythm, Tachycardia Peripheral Pulses: 2+: Radial (L), Radial (R) GI/Abdominal: Soft, Non-Tender, No Distention Back Exam: Normal Inspection, Full Range of Motion Extremities: Normal Inspection, Normal Range of Motion, Non-Tender, Normal Capillary Refill Neurological: Alert, Oriented, Normal Cognition, Normal Gait, No Motor/Sensory Deficits Psychiatric: Normal Affect, Normal Mood Skin Exam: Warm, Dry, Intact, No Rash, Jaundice Course - Vital Signs Text/Narrative:: 2109 the patient is currently being evaluated in the emergency department the chest x-ray is essentially negative this was compared to the previous 2 images which are again unchanged. The CBC is stable with the platelets of 41,000 which is somewhat more than previous. She does have some chronic anemia which is again unchanged for this patient. Urinalysis does not show any nitrates or leukocyte Estrace. We are using cooling techniques to help bring the patient's fever down as she is declining Tylenol Motrin as she does have this liver disease. Lactic acid is 2.0. the patient is receiving normal saline 2 L bolus. 0 I called and spoke to Nataly in the transfer center at [facility] to consult with the leaf blender and she advised she would get the leaf blender and have me speak with them. 2128 I spoke to the leaf blender who does not have a lot of input as the fever can be nonspecific and he suggests may be a peritonitis however the patient's abdomen is soft and she is not really having any abdominal pain the patient also does not have any nuchal rigidity she denies any headache. The general chemistries are all within her normal limits and running about where she has been running. The flu was negative. And it is unclear what is causing the fever. I am going to talk with the patient and discuss options of transfer. 2138 after speaking to the patient she requested be transferred to [facility] for further evaluation and treatment I have called in and waiting to speak to the hospitalist. 2148 I spoke with the hospitalist Dr. Garza who is accepted the patient in transfer. He advised to go ahead and give the patient Rocephin 2 g IV as well as Flagyl 500 mg IV. The patient's magnesium is 1.3 and she is having this replaced here as well with 2 g of magnesium IV piggyback as well. EMS ambulance has been called to transfer the patient by ALS. See the nursing notes for details of the transfer. Risk and benefits: The risk and benefits has been explained to the patient which includes the risk of worsening condition, motor vehicle accident and . The benefits is further evaluation and treatment by an engagement liaison/hospitalist, leaf blender, infectious disease physician not available at [facility]. Last Recorded V/S: Last Vital Signs Temp 39.7 C H 11/21/19 21:14 Pulse 114 H 11/21/19 21:14 Resp 20 11/21/19 21:14 BP 123/61 11/21/19 21:14 Pulse Ox 99 11/21/19 21:14 - Orders/Labs/Meds Orders: Active Orders 24 hr Category Date Time Status Chest 2V [CR] Stat Exams 11/21/19 20:34 Taken CULTURE BLOOD [BC] Stat Lab 11/21/19 20:45 Received CULTURE BLOOD [BC] Stat Lab 11/21/19 20:50 Received Magnesium Sulfate/D5W [Magnesium Sulfate in D5W 100 Med 11/21/19 21:49 Ordered Premix] 2 gm Premix Bag 1 bag IV ONETIME metroNIDAZOLE/Normal Saline [Flagyl 500 MG in NS 100 ML Med 11/21/19 21:49 Ordered ] 500 mg Premix Bag 1 bag IV ONETIME Blood Culture x2 Reflex Set [OM.PC] Stat Oth 11/21/19 20:34 Ordered Medication Orders Magnesium Sulfate/Dextrose 2 (gm/ Premix) 200 mls @ 100 mls/hr IV ONETIME ONE Stop: 11/21/19 23:48 Metronidazole 500 mg/ Premix 100 mls @ 100 mls/hr IV ONETIME ONE Stop: 11/21/19 22:48 Labs: Laboratory Tests 11/21/19 11/21/19 11/21/19 Range/Units 20:34 20:50 20:50 WBC 9.1 (5.0-10.0) 10^3/uL RBC 2.75 L (4.00-5.50) 10^6/uL Hgb 10.8 L (12.0-16.0) g/dL Hct 30.9 L (37.0-47.0) % MCV 112.4 H (82.0-94.0) fL MCH 39.3 H (27.0-32.0) pg MCHC 35.0 (33.0-38.0) g/dL RDW Coeff of Renae 14.8 (11.0-15.0) % Plt Count 41 L* (150-400) 10^3/uL Neut % (Auto) 79.6 (35-85) % Lymph % (Auto) 10.3 (10-55) % Wilkin % (Auto) 9.1 (0-16) % Eos % (Auto) 0.8 (0-5) % Baso % (Auto) 0.2 (0-3) % Neut # (Auto) 7.27 H (1.80-7.00) 10^3/uL Lymph # (Auto) 0.94 L (1.00-4.80) 10^3/uL Wilkin # (Auto) 0.83 H (0.00-0.80) 10^3/uL Eos # (Auto) 0.07 (0.00-0.45) 10^3/uL Baso # (Auto) 0.02 10^3/uL Sodium 138 (136-145) mEq/L Potassium 3.6 (3.5-5.0) mEq/L Chloride 104 (98-106) mEq/L Carbon Dioxide 26 (21-32) mmol/L BUN 7 (7-18) mg/dL Creatinine 0.9 (0.6-1.0) mg/dL Est Cr Clr Drug Dosing 71.75 mL/min Estimated GFR (MDRD) > 60 (>=60) mL/min Glucose 99 (75-99) mg/dL Lactic Acid (0.4-2.0) mmol/L Calcium 7.9 L (8.4-10.1) mg/dL Magnesium 1.3 L (1.8-2.4) mg/dL Total Bilirubin 5.4 H (0.0-1.0) mg/dL AST 45 H (15-37) U/L ALT 20 (12-78) U/L Alkaline Phosphatase 155 H (46-116) U/L C-Reactive Protein 2.0 H (0.2-0.8) mg/dL Total Protein 6.2 L (6.4-8.2) g/dL Albumin 2.4 L (3.4-5.0) g/dL Urine Color Dark yellow (YELLOW) Urine Appearance Clear (CLEAR) Urine pH 8.5 H (4.5-8.0) Ur Specific [place] 1.020 (1.003-1.020) Urine Protein Negative (NEGATIVE) mg/dL Urine Glucose (UA) Negative (NEGATIVE) mg/dL Urine Ketones Negative (NEGATIVE) mg/dL Urine Occult Blood Negative (NEGATIVE) Urine Nitrite Negative (NEGATIVE) Urine Bilirubin Small H (NEGATIVE) Urine Urobilinogen >=8.0 H (0.2-1.0) EU/dL Ur Leukocyte Esterase Negative (NEGATIVE) 11/21/19 Range/Units 20:50 WBC (5.0-10.0) 10^3/uL RBC (4.00-5.50) 10^6/uL Hgb (12.0-16.0) g/dL Hct (37.0-47.0) % MCV (82.0-94.0) fL MCH (27.0-32.0) pg MCHC (33.0-38.0) g/dL RDW Coeff of Renae (11.0-15.0) % Plt Count (150-400) 10^3/uL Neut % (Auto) (35-85) % Lymph % (Auto) (10-55) % Wilkin % (Auto) (0-16) % Eos % (Auto) (0-5) % Baso % (Auto) (0-3) % Neut # (Auto) (1.80-7.00) 10^3/uL Lymph # (Auto) (1.00-4.80) 10^3/uL Wilkin # (Auto) (0.00-0.80) 10^3/uL Eos # (Auto) (0.00-0.45) 10^3/uL Baso # (Auto) 10^3/uL Sodium (136-145) mEq/L Potassium (3.5-5.0) mEq/L Chloride (98-106) mEq/L Carbon Dioxide (21-32) mmol/L BUN (7-18) mg/dL Creatinine (0.6-1.0) mg/dL Est Cr Clr Drug Dosing mL/min Estimated GFR (MDRD) (>=60) mL/min Glucose (75-99) mg/dL Lactic Acid 2.0 (0.4-2.0) mmol/L Calcium (8.4-10.1) mg/dL Magnesium (1.8-2.4) mg/dL Total Bilirubin (0.0-1.0) mg/dL AST (15-37) U/L ALT (12-78) U/L Alkaline Phosphatase (46-116) U/L C-Reactive Protein (0.2-0.8) mg/dL Total Protein (6.4-8.2) g/dL Albumin (3.4-5.0) g/dL Urine Color (YELLOW) Urine Appearance (CLEAR) Urine pH (4.5-8.0) Ur Specific [place] (1.003-1.020) Urine Protein (NEGATIVE) mg/dL Urine Glucose (UA) (NEGATIVE) mg/dL Urine Ketones (NEGATIVE) mg/dL Urine Occult Blood (NEGATIVE) Urine Nitrite (NEGATIVE) Urine Bilirubin (NEGATIVE) Urine Urobilinogen (0.2-1.0) EU/dL Ur Leukocyte Esterase (NEGATIVE) Meds: Medications Generic Name Dose Route Start Last Admin Trade Name Freq PRN Reason Stop Dose Admin Magnesium Sulfate/Dextrose 2 200 mls @ 100 mls/hr 11/21/19 21:49 gm/ Premix IV 11/21/19 23:48 ONETIME ONE Metronidazole 500 mg/ Premix 100 mls @ 100 mls/hr 11/21/19 21:49 IV 11/21/19 22:48 ONETIME ONE Discontinued Medications Generic Name Dose Route Start Last Admin Trade Name Freq PRN Reason Stop Dose Admin Ceftriaxone Sodium 2 gm 11/21/19 21:48 Rocephin IVPUSH 11/21/19 21:49 ONETIME ONE Sodium Chloride 1,000 mls @ 999 mls/hr 11/21/19 20:35 11/21/19 21:06 Normal Saline IV 11/21/19 21:35 999 mls/hr .BOLUS ONE Administration Sodium Chloride 1,000 mls @ 999 mls/hr 11/21/19 20:37 Normal Saline IV 11/21/19 21:37 .BOLUS ONE Departure - Departure Time of Disposition: 21:54 Disposition: DC/Tfer to Acute Hospital 02 Condition: Good Clinical Impression: Fever, Chronic liver disease, Sepsis, Fever, unknown origin - Discharge Information *PRESCRIPTION DRUG MONITORING PROGRAM REVIEWED*: Not Applicable *COPY OF PRESCRIPTION DRUG MONITORING REPORT IN PATIENT MAC: Not Applicable Forms: ED Department Discharge Sepsis Event Note - Focused Exam Vital Signs: Vital Signs Temp Pulse Resp BP Pulse Ox 11/21/19 21:14 39.7 C H 114 H 20 123/61 99 11/21/19 20:30 39.9 C H 118 H 20 143/78 H 98 Date Exam was Performed: 11/21/19 Time Exam was Performed: 21:53 - Problem List & Annotations (1) Chronic liver disease SNOMED Code(s): 276326236 Code(s): K76.9 - LIVER DISEASE, UNSPECIFIED Status: Acute Priority: Medium Current Visit: Yes (2) Fever SNOMED Code(s): 451492404 Code(s): R50.9 - FEVER, UNSPECIFIED Status: Acute Priority: High Current Visit: Yes (3) Fever, unknown origin SNOMED Code(s): 4941313 Code(s): R50.9 - FEVER, UNSPECIFIED Status: Acute Priority: High Current Visit: Yes (4) Sepsis SNOMED Code(s): 14595933 Code(s): A41.9 - SEPSIS, UNSPECIFIED ORGANISM Status: Acute Priority: High Current Visit: Yes Annotation/Comment:: Impending sepsis - Problem List Review Problem List Initiated/Reviewed/Updated: Yes - My Orders Last 24 Hours: My Active Orders 11/21/19 20:34 Chest 2V [CR] Stat Blood Culture x2 Reflex Set [OM.PC] Stat 11/21/19 20:45 CULTURE BLOOD [BC] Stat 11/21/19 20:50 CULTURE BLOOD [BC] Stat 11/21/19 21:49 Magnesium Sulfate/D5W [Magnesium Sulfate in D5W 100 Premix] 2 gm Premix Bag 1 bag IV ONETIME metroNIDAZOLE/Normal Saline [Flagyl 500 MG in NS 100 ML] 500 mg Premix Bag 1 bag IV ONETIME - Assessment/Plan Last 24 Hours: My Active Orders 11/21/19 20:34 Chest 2V [CR] Stat Blood Culture x2 Reflex Set [OM.PC] Stat 11/21/19 20:45 CULTURE BLOOD [BC] Stat 11/21/19 20:50 CULTURE BLOOD [BC] Stat 11/21/19 21:49 Magnesium Sulfate/D5W [Magnesium Sulfate in D5W 100 Premix] 2 gm Premix Bag 1 bag IV ONETIME metroNIDAZOLE/Normal Saline [Flagyl 500 MG in NS 100 ML] 500 mg Premix Bag 1 bag IV ONETIME Plan: As above, see the course notes for complete details
[2019-11-21] MEDS ORDERED: Sodium Chloride 0.9% 1,000 ML IV ONE ×2 (20:35→20:37)
[2019-11-21 21:17] LABS: CHLORIDE,CL 104 mEq/L (98-106); SODIUM,NA 138 mEq/L (136-145)
[2019-11-21] MEDS ORDERED: cefTRIAXone 2 GM Vial IVPUSH ONE (21:48)
[2019-11-21] MEDS ORDERED: Magnesium Sulfate/D5W 2 GM in Premix Bag 1 BAG IV ONE (21:49)
[2019-11-21] MEDS ORDERED: metroNIDAZOLE/Normal Saline 500 MG in Premix Bag 1 BAG IV ONE (21:49)
[2019-11-21] MEDS ORDERED: LORazepam 0.5 MG Tab PO ONE (22:13)
[2019-11-21 22:16] VITALS: BP 123/68; PULSE 112
== END 2019-11-21 22:49 ==
LOC: CC.ED 20:19
DX: K76.9 Liver disease, unspecified (principal); A41.9 Sepsis, unspecified organism; Z88.5 Allergy status to narcotic agent; Z91.041 Radiographic dye allergy status; Z91.048 Other nonmedicinal substance allergy status
CPT/HCPCS: 36415; 71046; 80053; 81003; 83605; 83735; 85025; 86140; 87040; 87804; 96361; 96365; 96368; 99284; 99285; A9270; J0696; J3475; J3490; J7030

== ENCOUNTER 2019-12-05 13:15 | Emergency (ER) | payer OTHER ==
[2019-12-05 14:18] LABS: CHLORIDE,CL 106 mEq/L (98-106); SODIUM,NA 139 mEq/L (136-145)
--- NOTE | 2019-12-05 15:39 | EDM.PDOC ---
ED HPI GENERAL MEDICAL PROBLEM - General Chief Complaint: Neurological Problem Stated Complaint: slurred speech, stuperous gait Time Seen by Provider: 12/05/19 13:56 Source of Information: Reports: Patient History Limitations: Reports: No Limitations - History of Present Illness INITIAL COMMENTS - FREE TEXT/NARRATIVE: This patient is a 38 year old female that presents to the ER. Patient reports that for 3 days her gait has been off and she has had slurred speech. Patient reports she generally feels weak and not well. Patient denies unilateral weaknesses. She is alert and oriented. The stroke code was called due to patient slurred speech. Onset Date: 12/02/19 Duration: Day(s): (3) Severity: Moderate Improves with: Reports: None Worsens with: Reports: None Associated Symptoms: Reports: Malaise, Weakness (generalized). Denies: Confusion, Chest Pain, Cough, cough w sputum, Diaphoresis, Fever/Chills, Headaches, Loss of Appetite, Nausea/Vomiting, Rash, Seizure, Shortness of Breath , Syncope Left Shoulder Pain Score (Numeric/FACES): 6 - Related Data Allergies Allergy/AdvReac Type Severity Reaction Status Date / Time morphine Allergy Hallucinati Verified 12/05/19 13:[address] contrast dye Allergy Shortness Uncoded 12/05/19 13:26 of Breath laundry soa[ Allergy Rash Uncoded 12/05/19 13:26 Home Meds: Home Meds Folic Acid 1 mg PO DAILY 12/05/19 [History] Lactulose [Cephulac] 45 ml PO DAILY 12/05/19 [History] Rifaximin [Xifaxan] 200 mg PO DAILY 12/05/19 [History] Spironolactone [Aldactone] 1 cap PO DAILY 12/05/19 [History] Past Medical History HEENT History: Reports: Other (See Below) Other HEENT History: BLOOD VESSEL THAT BURST IN HER THROAT; 2017 Cardiovascular History: Reports: Heart Murmur Respiratory History: Reports: None Gastrointestinal History: Reports: Cirrhosis, GI Bleed, Other (See Below) Other Gastrointestinal History: liver failure. 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: Reports: Endometriosis Musculoskeletal History: Reports: Fracture Neurological History: Reports: Neuropathy, Peripheral Psychiatric History: Reports: Addiction, Anxiety, Panic Attack, PTSD, Other ( See Below) Other Psychiatric History: ETOH abuse Endocrine/Metabolic History: Reports: None Hematologic History: Reports: Anemia Immunologic History: Reports: None Oncologic (Cancer) History: Reports: None Dermatologic History: Reports: None - Infectious Disease History Infectious Disease History: Reports: Chicken Pox Other Infectious Disease History: hx mrsa in area of hernia repair - Past Surgical History Cardiovascular Surgical History: Reports: None Respiratory Surgical History: Reports: None GI Surgical History: Reports: Hernia Repair/Other Female Surgical History: Reports: None Musculoskeletal Surgical History: Reports: Hip Replacement Oncologic Surgical History: Reports: None Social & Family History - Family History Family Medical History: Noncontributory Cardiac: Reports: CAD, High Cholesterol, Hypertension GI: Reports: Other (See Below) Musculoskeletal: Reports: Osteoarthritis - Tobacco Use Smoking Status *Q: Current Every Day Smoker Years of Tobacco use: 20 Packs/Tins Daily: 0.5 - Caffeine Use Caffeine Use: Reports: Soda Caffeine Use Comment: 3 cans a day - Recreational Drug Use Recreational Drug Use: No - Living Situation & Occupation Living situation: Reports: Single, Alone Occupation: Disabled ED ROS GENERAL - Review of Systems Review Of Systems: See Below Constitutional: Reports: Malaise, Weakness (generalized) HEENT: Reports: No Symptoms Respiratory: Reports: No Symptoms. Denies: Shortness of Breath, Wheezing, Cough , Sputum Cardiovascular: Reports: No Symptoms. Denies: Chest Pain GI/Abdominal: Denies: Abdominal Pain, Diarrhea, Nausea, Vomiting : Reports: No Symptoms Musculoskeletal: Reports: Back Pain (chronic) Skin: Reports: No Symptoms Neurological: Reports: Headache (chronic per patient), Gait Disturbance (Gait ataxia.), Other (slurred speech) Psychiatric: Reports: No Symptoms Hematologic/Lymphatic: Reports: No Symptoms Immunologic: Reports: No Symptoms - Physical Exam Exam: See Below Exam Limited By: No Limitations General Appearance: Alert, WD/WN, No Apparent Distress Eye Exam: Bilateral Eye: EOMI, PERRL, Other (jaundiced) Ears: Normal External Exam, Normal Canal, Hearing Grossly Normal, Normal TMs Nose: Normal Inspection, Normal Mucosa, No Blood Throat/Mouth: Normal Inspection, Normal Lips, Normal Teeth, Normal Gums, Normal Oropharynx, Normal Voice, No Airway Compromise Head Exam: Atraumatic, Normocephalic Neck: Normal Inspection, Supple, Non-Tender, Full Range of Motion Respiratory/Chest: No Respiratory Distress, Lungs Clear, Normal Breath Sounds, No Accessory Muscle Use Cardiovascular: Normal Peripheral Pulses, Regular Rate, Rhythm, No Edema, No Gallop, No JVD, No Murmur, No Rub GI/Abdominal: Normal Bowel Sounds, Soft, Non-Tender, No Organomegaly, No Distention, No Abnormal Bruit, No Mass, Pelvis Stable Neuro Exam (Abbreviated): Alert, Oriented, Normal Cognition, Abnormal Gait ( gait ataxia). No: CN II-XII Intact (GCS: 15. Stroke Score: 3 due to slurred speech understood and limb ataxia bilaterally equal. ) Back Exam: Normal Inspection, Full Range of Motion Extremities: Normal Inspection, Normal Range of Motion, Non-Tender, No Pedal Edema, Normal Capillary Refill Psychiatric: Normal Affect, Normal Mood Skin Exam: Warm, Dry, Intact, No Rash, Jaundice Course - Vital Signs Last Recorded V/S: Last Vital Signs Temp 97.9 F 12/05/19 13:16 Pulse 89 12/05/19 13:16 Resp 18 12/05/19 13:16 BP 112/75 12/05/19 13:16 Pulse Ox 100 12/05/19 13:16 - Orders/Labs/Meds Orders: Active Orders 24 hr Category Date Time Status Chest 1V Frontal [CR] Stat Exams 12/05/19 13:57 Taken Head wo Cont [CT] Stat Exams 12/05/19 13:40 Taken AMMONIA [REF] Stat Lab 12/05/19 14:20 Received CULTURE BLOOD [BC] Stat Lab 12/05/19 14:20 Received CULTURE BLOOD [BC] Stat Lab 12/05/19 14:30 Received Blood Culture x2 Reflex Set [OM.PC] Stat Oth 12/05/19 13:59 Ordered Labs: Laboratory Tests 12/05/19 12/05/19 12/05/19 Range/Units 14:00 14:00 14:00 WBC 5.3 (5.0-10.0) 10^3/uL RBC 2.65 L (4.00-5.50) 10^6/uL Hgb 10.7 L (12.0-16.0) g/dL Hct 31.2 L (37.0-47.0) % MCV 117.7 H (82.0-94.0) fL MCH 40.4 H (27.0-32.0) pg MCHC 34.3 (33.0-38.0) g/dL RDW Coeff of Renae 16.5 H (11.0-15.0) % Plt Count 38 L* (150-400) 10^3/uL Neut % (Auto) 66.1 (35-85) % Lymph % (Auto) 22.7 (10-55) % [place] % (Auto) 9.1 (0-16) % Eos % (Auto) 1.9 (0-5) % Baso % (Auto) 0.2 (0-3) % Neut # (Auto) 3.50 (1.80-7.00) 10^3/uL Lymph # (Auto) 1.20 (1.00-4.80) 10^3/uL [place] # (Auto) 0.48 (0.00-0.80) 10^3/uL Eos # (Auto) 0.10 (0.00-0.45) 10^3/uL Baso # (Auto) 0.01 10^3/uL PT 14.1 H (9.7-12.3) SEC INR 1.39 H (0.92-1.18) Sodium (136-145) mEq/L Potassium (3.5-5.0) mEq/L Chloride (98-106) mEq/L Carbon Dioxide (21-32) mmol/L BUN (7-18) mg/dL Creatinine (0.6-1.0) mg/dL Est Cr Clr Drug Dosing mL/min Estimated GFR (MDRD) (>=60) mL/min Glucose (75-99) mg/dL Lactic Acid (0.4-2.0) mmol/L Calcium (8.4-10.1) mg/dL Total Bilirubin (0.0-1.0) mg/dL AST (15-37) U/L ALT (12-78) U/L Alkaline Phosphatase (46-116) U/L Creatine Kinase 24 (21-215) U/L Troponin I 0.027 (0.00-0.06) ng/mL Total Protein (6.4-8.2) g/dL Albumin (3.4-5.0) g/dL Amylase (25-115) U/L Lipase (73-393) U/L Urine Color (YELLOW) Urine Appearance (CLEAR) Urine pH (4.5-8.0) Ur Specific [place] (1.003-1.020) Urine Protein (NEGATIVE) mg/dL Urine Glucose (UA) (NEGATIVE) mg/dL Urine Ketones (NEGATIVE) mg/dL Urine Occult Blood (NEGATIVE) Urine Nitrite (NEGATIVE) Urine Bilirubin (NEGATIVE) Urine Urobilinogen (0.2-1.0) EU/dL Ur Leukocyte Esterase (NEGATIVE) Urine Opiates Screen (NEGATIVE) Ur Oxycodone Screen (NEGATIVE) Urine Methadone Screen (NEGATIVE) Ur Barbiturates Screen (NEGATIVE) U Tricyclic Antidepress (NEGATIVE) Ur Phencyclidine Scrn (NEGATIVE) Ur Amphetamine Screen (NEGATIVE) U Methamphetamines Scrn (NEGATIVE) Urine MDMA Screen (NEGATIVE) U Benzodiazepines Scrn (NEGATIVE) Urine Cocaine Screen (NEGATIVE) U Marijuana (THC) Screen (NEGATIVE) Ethyl Alcohol (0-3) mg/dL 12/05/19 12/05/19 12/05/19 Range/Units 14:00 14:15 14:17 WBC (5.0-10.0) 10^3/uL RBC (4.00-5.50) 10^6/uL Hgb (12.0-16.0) g/dL Hct (37.0-47.0) % MCV (82.0-94.0) fL MCH (27.0-32.0) pg MCHC (33.0-38.0) g/dL RDW Coeff of Renae (11.0-15.0) % Plt Count (150-400) 10^3/uL Neut % (Auto) (35-85) % Lymph % (Auto) (10-55) % [place] % (Auto) (0-16) % Eos % (Auto) (0-5) % Baso % (Auto) (0-3) % Neut # (Auto) (1.80-7.00) 10^3/uL Lymph # (Auto) (1.00-4.80) 10^3/uL [place] # (Auto) (0.00-0.80) 10^3/uL Eos # (Auto) (0.00-0.45) 10^3/uL Baso # (Auto) 10^3/uL PT (9.7-12.3) SEC INR (0.92-1.18) Sodium 139 (136-145) mEq/L Potassium 4.1 (3.5-5.0) mEq/L Chloride 106 (98-106) mEq/L Carbon Dioxide 25 (21-32) mmol/L BUN 8 (7-18) mg/dL Creatinine 0.9 (0.6-1.0) mg/dL Est Cr Clr Drug Dosing 71.75 mL/min Estimated GFR (MDRD) > 60 (>=60) mL/min Glucose 116 H (75-99) mg/dL Lactic Acid (0.4-2.0) mmol/L Calcium 8.9 (8.4-10.1) mg/dL Total Bilirubin 4.8 H (0.0-1.0) mg/dL AST 47 H (15-37) U/L ALT 26 (12-78) U/L Alkaline Phosphatase 177 H (46-116) U/L Creatine Kinase (21-215) U/L Troponin I (0.00-0.06) ng/mL Total Protein 6.3 L (6.4-8.2) g/dL Albumin 2.6 L (3.4-5.0) g/dL Amylase 57 (25-115) U/L Lipase 167 (73-393) U/L Urine Color Yellow (YELLOW) Urine Appearance Clear (CLEAR) Urine pH 7.0 (4.5-8.0) Ur Specific [place] 1.020 (1.003-1.020) Urine Protein Negative (NEGATIVE) mg/dL Urine Glucose (UA) Negative (NEGATIVE) mg/dL Urine Ketones Negative (NEGATIVE) mg/dL Urine Occult Blood Negative (NEGATIVE) Urine Nitrite Negative (NEGATIVE) Urine Bilirubin Negative (NEGATIVE) Urine Urobilinogen 1.0 (0.2-1.0) EU/dL Ur Leukocyte Esterase Negative (NEGATIVE) Urine Opiates Screen Negative (NEGATIVE) Ur Oxycodone Screen Negative (NEGATIVE) Urine Methadone Screen Negative (NEGATIVE) Ur Barbiturates Screen Negative (NEGATIVE) U Tricyclic Antidepress Negative (NEGATIVE) Ur Phencyclidine Scrn Negative (NEGATIVE) Ur Amphetamine Screen Negative (NEGATIVE) U Methamphetamines Scrn Negative (NEGATIVE) Urine MDMA Screen Negative (NEGATIVE) U Benzodiazepines Scrn Negative (NEGATIVE) Urine Cocaine Screen Negative (NEGATIVE) U Marijuana (THC) Screen Negative (NEGATIVE) Ethyl Alcohol < 3 (0-3) mg/dL 12/05/19 Range/Units 14:20 WBC (5.0-10.0) 10^3/uL RBC (4.00-5.50) 10^6/uL Hgb (12.0-16.0) g/dL Hct (37.0-47.0) % MCV (82.0-94.0) fL MCH (27.0-32.0) pg MCHC (33.0-38.0) g/dL RDW Coeff of Renae (11.0-15.0) % Plt Count (150-400) 10^3/uL Neut % (Auto) (35-85) % Lymph % (Auto) (10-55) % [place] % (Auto) (0-16) % Eos % (Auto) (0-5) % Baso % (Auto) (0-3) % Neut # (Auto) (1.80-7.00) 10^3/uL Lymph # (Auto) (1.00-4.80) 10^3/uL [place] # (Auto) (0.00-0.80) 10^3/uL Eos # (Auto) (0.00-0.45) 10^3/uL Baso # (Auto) 10^3/uL PT (9.7-12.3) SEC INR (0.92-1.18) Sodium (136-145) mEq/L Potassium (3.5-5.0) mEq/L Chloride (98-106) mEq/L Carbon Dioxide (21-32) mmol/L BUN (7-18) mg/dL Creatinine (0.6-1.0) mg/dL Est Cr Clr Drug Dosing mL/min Estimated GFR (MDRD) (>=60) mL/min Glucose (75-99) mg/dL Lactic Acid 2.1 H (0.4-2.0) mmol/L Calcium (8.4-10.1) mg/dL Total Bilirubin (0.0-1.0) mg/dL AST (15-37) U/L ALT (12-78) U/L Alkaline Phosphatase (46-116) U/L Creatine Kinase (21-215) U/L Troponin I (0.00-0.06) ng/mL Total Protein (6.4-8.2) g/dL Albumin (3.4-5.0) g/dL Amylase (25-115) U/L Lipase (73-393) U/L Urine Color (YELLOW) Urine Appearance (CLEAR) Urine pH (4.5-8.0) Ur Specific [place] (1.003-1.020) Urine Protein (NEGATIVE) mg/dL Urine Glucose (UA) (NEGATIVE) mg/dL Urine Ketones (NEGATIVE) mg/dL Urine Occult Blood (NEGATIVE) Urine Nitrite (NEGATIVE) Urine Bilirubin (NEGATIVE) Urine Urobilinogen (0.2-1.0) EU/dL Ur Leukocyte Esterase (NEGATIVE) Urine Opiates Screen (NEGATIVE) Ur Oxycodone Screen (NEGATIVE) Urine Methadone Screen (NEGATIVE) Ur Barbiturates Screen (NEGATIVE) U Tricyclic Antidepress (NEGATIVE) Ur Phencyclidine Scrn (NEGATIVE) Ur Amphetamine Screen (NEGATIVE) U Methamphetamines Scrn (NEGATIVE) Urine MDMA Screen (NEGATIVE) U Benzodiazepines Scrn (NEGATIVE) Urine Cocaine Screen (NEGATIVE) U Marijuana (THC) Screen (NEGATIVE) Ethyl Alcohol (0-3) mg/dL Meds: Medications Discontinued Medications Generic Name Dose Route Start Last Admin Trade Name Freq PRN Reason Stop Dose Admin Lactulose 30 gm 12/05/19 16:51 Cephulac PO 12/05/19 16:52 ONETIME ONE - Radiology Interpretation Free Text/Narrative:: Head Ct: No acute findings CT Results Date: 12/05/19 CT Results Time: 15:40 - Re-Assessments/Exams Free Text/Narrative Re-Assessment/Exam: 12/05/19 17:[address] Valentin hospitalist at [facility] about this patient due to them managing her care recently. He reports to have the patient to take her Lactulose. He reports not stroke related. He reports they would not do anything different for this patient. 12/05/19 17:02 Her brother will tae her and stay with her. Departure - Departure Time of Disposition: 16:58 Disposition: Home, Self-Care 01 Condition: Fair Clinical Impression: Alcoholic cirrhosis of liver Qualifiers: Ascites presence: with ascites Qualified Code(s): K70.31 - Alcoholic cirrhosis of liver with ascites - Discharge Information *PRESCRIPTION DRUG MONITORING PROGRAM REVIEWED*: Not Applicable *COPY OF PRESCRIPTION DRUG MONITORING REPORT IN PATIENT MAC: Not Applicable Instructions: Liver Failure Referrals: Sarina Baez MD [Primary Care Provider] - Forms: ED Department Discharge Additional Instructions: Followup with your primary care provider Return to the ER for worsening of condition or any emergent concerns Take your Lactulose as prescribed *Do not miss doses Please return for confusion or unresponsiveness Sepsis Event Note - Evaluation Sepsis Screening Result: No Definite Risk - Focused Exam Vital Signs: Vital Signs Temp Pulse Resp BP Pulse Ox 12/05/19 13:16 97.9 F 89 18 112/75 100 Date Exam was Performed: 12/05/19 Time Exam was Performed: 16:56 - My Orders Last 24 Hours: My Active Orders 12/05/19 13:40 Head wo Cont [CT] Stat 12/05/19 13:57 Chest 1V Frontal [CR] Stat 12/05/19 13:59 Blood Culture x2 Reflex Set [OM.PC] Stat 12/05/19 14:20 AMMONIA [REF] Stat CULTURE BLOOD [BC] Stat 12/05/19 14:30 CULTURE BLOOD [BC] Stat - Assessment/Plan Last 24 Hours: My Active Orders 12/05/19 13:40 Head wo Cont [CT] Stat 12/05/19 13:57 Chest 1V Frontal [CR] Stat 12/05/19 13:59 Blood Culture x2 Reflex Set [OM.PC] Stat 12/05/19 14:20 AMMONIA [REF] Stat CULTURE BLOOD [BC] Stat 12/05/19 14:30 CULTURE BLOOD [BC] Stat Plan: PLEASE SEE RN NOTE FOR PFSH.
[2019-12-05] MEDS: Lactulose Soln 10 GM/15 ML 30 ML UD Cup PO ONE (17:27)
[2019-12-05 17:44] VITALS: BP 107/65; PULSE 95
== END 2019-12-05 18:00 | disposition home or self-care (01) ==
LOC: CC.ED 13:15
DX: K70.31 Alcoholic cirrhosis of liver with ascites (principal); F41.9 Anxiety disorder, unspecified; F17.210 Nicotine dependence, cigarettes, uncomplicated; Z91.041 Radiographic dye allergy status; Z91.048 Other nonmedicinal substance allergy status; Z88.5 Allergy status to narcotic agent; Z79.899 Other long term (current) drug therapy
CPT/HCPCS: 36415; 70450; 71045; 80053; 80305-QW; 80307; 81003; 82140; 82150; 82550; 83605; 83690; 84484; 85025; 85610; 87040; 93005; 99284; 99285-25; A9270-GY

== ENCOUNTER 2019-12-07 06:46 | Emergency (ER) | payer OTHER ==
[2019-12-07 07:07] VITALS: BP 110/73; PULSE 97
[2019-12-07 08:01] LABS: CHLORIDE,CL 102 mEq/L (98-106); SODIUM,NA 138 mEq/L (136-145)
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
== END 2019-12-07 09:46 ==
LOC: CC.ED 06:46
DX: I63.89 Other cerebral infarction (principal); R26.0 Ataxic gait; R29.702 NIHSS score 2; K76.9 Liver disease, unspecified; F17.210 Nicotine dependence, cigarettes, uncomplicated; Z91.041 Radiographic dye allergy status; Z88.5 Allergy status to narcotic agent; Z91.048 Other nonmedicinal substance allergy status
CPT/HCPCS: 36415; 70450; 80053; 80305-QW; 80307; 81003; 82140; 82550; 83605; 84484; 84703; 85025; 93005; 93010; 99284; 99285-25

== ENCOUNTER 2020-01-23 06:30 | Inpatient (IN) | payer OTHER, MEDICAID ==
[2020-01-23] MEDS ORDERED: HYDROmorphone 0.5 MG/0.5 ML Syringe IM ONE ×2 (07:14→08:04)
[2020-01-23] MEDS ORDERED: HYDROmorphone 1 MG/ML Syringe ONE (07:17)
[2020-01-23] MEDS ORDERED: Ondansetron 4 MG Tab.DIS PO ONE (07:18)
--- NOTE | 2020-01-23 07:28 | EDM.PDOC ---
ED HPI GENERAL MEDICAL PROBLEM - General Chief Complaint: General Stated Complaint: right hip/back pain Time Seen by Provider: 01/23/20 07:03 Source of Information: Reports: Patient History Limitations: Reports: No Limitations - History of Present Illness INITIAL COMMENTS - FREE TEXT/NARRATIVE: This patient is a 39 year old female that presents to the ER. The patient reports she just got discharged home yesterday from rehab from her stroke. She reports that she was sent home yesterday. She reports she was afraid at her home she was going to fall because she was home alone and it was her first night home. She reports that she went and stayed at a friends house instead. She reports she was in the bathroom, no handrails at friends house, and fell back onto the toilet to go the bathroom. She reports having right hip pain and pelvis pain from falling back onto the toilet on her bottom from a standing position. She reports it took two people to stand her up. Patient does report that her home has handrails and is set up for her to live safely. Patient reports home health is supposed to come out tomorrow. She reports that she would safe to go to her home if someone stayed with her. Onset: Today Onset Date: 01/23/20 Onset Time: 04:00 Location: Reports: Pelvis, Lower Extremity, Right Front/Back Body Image: 1 - pain, tenderness. 2 - pain, tenderness. Quality: Reports: Ache Severity: Moderate Improves with: Reports: Immobilization Worsens with: Reports: Movement Associated Symptoms: Denies: Confusion, Chest Pain, Cough, cough w sputum, Diaphoresis, Fever/Chills, Headaches, Loss of Appetite, Malaise, Nausea/Vomiting , Rash, Seizure, Shortness of Breath, Syncope, Weakness Bilateral Hip Pain Score (Numeric/FACES): 8 - Related Data Allergies Allergy/AdvReac Type Severity Reaction Status Date / Time morphine Allergy Hallucinati Verified 12/07/19 06:[address] contrast dye Allergy Shortness Uncoded 12/07/19 06:55 of Breath laundry soa[ Allergy Rash Uncoded 12/07/19 06:55 plastic tape Allergy Rash Uncoded 01/23/20 06:47 Home Meds: Home Meds Folic Acid 1 mg PO DAILY 12/05/19 [History] Lactulose [Cephulac] 45 ml PO TID 12/05/19 [History] Rifaximin [Xifaxan] 200 mg PO DAILY 12/05/19 [History] Spironolactone [Aldactone] 1 cap PO DAILY 12/05/19 [History] Thiamine [Vitamin B-1] 100 mg PO DAILY 01/23/20 [History] Past Medical History HEENT History: Reports: Other (See Below) Other HEENT History: BLOOD VESSEL THAT BURST IN HER THROAT; 2017 Cardiovascular History: Reports: Heart Murmur Respiratory History: Reports: None Gastrointestinal History: Reports: Cirrhosis, GI Bleed, Other (See Below) Other Gastrointestinal History: liver failure. ascites Genitourinary History: Reports: None [employer] SERVICES PROFESSIONAL History: Reports: Endometriosis Musculoskeletal History: Reports: Fracture Neurological History: Reports: CVA, Neuropathy, Peripheral, Speech Problems Psychiatric History: Reports: Addiction, Anxiety, Panic Attack, PTSD, Other ( See Below) Other Psychiatric History: ETOH abuse Endocrine/Metabolic History: Reports: None Hematologic History: Reports: Anemia Immunologic History: Reports: None Oncologic (Cancer) History: Reports: None Dermatologic History: Reports: None - Infectious Disease History Infectious Disease History: Reports: Chicken Pox Other Infectious Disease History: hx mrsa in area of hernia repair - Past Surgical History Cardiovascular Surgical History: Reports: None Respiratory Surgical History: Reports: None GI Surgical History: Reports: Hernia Repair/Other Female Surgical History: Reports: None Musculoskeletal Surgical History: Reports: Hip Replacement Oncologic Surgical History: Reports: None Social & Family History - Family History Family Medical History: Noncontributory Cardiac: Reports: CAD, High Cholesterol, Hypertension GI: Reports: Other (See Below) Musculoskeletal: Reports: Osteoarthritis - Tobacco Use Smoking Status *Q: Current Some Day Smoker Years of Tobacco use: 25 Packs/Tins Daily: 0.5 - Caffeine Use Caffeine Use: Reports: Soda Caffeine Use Comment: 3 cans a day - Living Situation & Occupation Living situation: Reports: Single, Alone Occupation: Disabled ED ROS GENERAL - Review of Systems Review Of Systems: See Below Constitutional: Reports: No Symptoms HEENT: Reports: No Symptoms Respiratory: Reports: No Symptoms Cardiovascular: Reports: No Symptoms Endocrine: Reports: No Symptoms GI/Abdominal: Reports: No Symptoms : Reports: No Symptoms Musculoskeletal: Reports: Joint Pain (Right hip and pelvis pain). Denies: Neck Pain, Shoulder Pain, Arm Pain, Back Pain Skin: Reports: No Symptoms Neurological: Reports: Pre-Existing Deficit (cva) Psychiatric: Reports: No Symptoms Hematologic/Lymphatic: Reports: No Symptoms Immunologic: Reports: No Symptoms ED EXAM, GENERAL - Physical Exam Exam: See Below Exam Limited By: No Limitations General Appearance: Alert, WD/WN, No Apparent Distress, Other (chronically ill) Eye Exam: Bilateral Eye: PERRL, Other (jaundice) Ears: Normal External Exam, Normal Canal, Hearing Grossly Normal, Normal TMs Ear Exam: Bilateral Ear: Auricle Normal, Canal Normal, TM normal Nose: Normal Inspection, Normal Mucosa, No Blood Throat/Mouth: Normal Inspection, Normal Lips, Normal Teeth, Normal Gums, Normal Oropharynx, Normal Voice, No Airway Compromise Head: Atraumatic, Normocephalic Neck: Normal Inspection, Supple, Non-Tender, Full Range of Motion Respiratory/Chest: No Respiratory Distress, Lungs Clear, Normal Breath Sounds, No Accessory Muscle Use Cardiovascular: Normal Peripheral Pulses, No Edema, No Gallop, No JVD, No Murmur , No Rub, Tachycardia (112 on exam) Peripheral Pulses: 2+: Radial (L), Radial (R), Femoral (L), Femoral (R), Popliteal (L), Popliteal (R), Posterior Tibial (L), Posterior Tibial (R), Dorsalis Pedis (L), Dorsalis Pedis (R) GI/Abdominal: Soft, Non-Tender Back Exam: Normal Inspection, Full Range of Motion. No: CVA Tenderness (L), CVA Tenderness (R), Decreased Range of Motion, Muscle Spasm, Paraspinal Tenderness, Vertebral Tenderness Extremities: Normal Inspection, No Pedal Edema, Normal Capillary Refill, Limited Range of Motion (due to pain Right hip), Other (Pain, tendnerness, right hip/right pelvis. No shortening, no internal or external rotation.) Neurological: Alert, Oriented, Abnormal Gait (chronic from cva.), Sensory/Motor Deficit (right sided weakness, chronic, cva. right foot drag chronic. ), Other ( slurred speech, chronic from cva. ) Psychiatric: Normal Affect, Normal Mood Skin Exam: Warm, Dry, Intact, No Rash, Jaundice Lymphatic: No Adenopathy Course - Vital Signs Last Recorded V/S: Last Vital Signs Temp 98.9 F 01/23/20 06:36 Pulse 108 H 01/23/20 06:36 Resp 18 01/23/20 06:36 BP 142/76 H 01/23/20 06:36 Pulse Ox 98 01/23/20 06:36 - Orders/Labs/Meds Orders: Active Orders 24 hr Category Date Time Status Hip Min 2V or 3V w Pelvis Rt [CR] Stat Exams 01/23/20 07:13 Taken Pelvis wo Cont [CT] Stat Exams 01/23/20 07:51 Taken Labs: Laboratory Tests 01/23/20 01/23/20 01/23/20 Range/Units 07:13 08:40 08:40 WBC 6.1 (5.0-10.0) 10^3/uL RBC 2.62 L (4.00-5.50) 10^6/uL Hgb 10.6 L (12.0-16.0) g/dL Hct 30.4 L (37.0-47.0) % MCV 116.0 H (82.0-94.0) fL MCH 40.5 H (27.0-32.0) pg MCHC 34.9 (33.0-38.0) g/dL RDW Coeff of Renae 15.3 H (11.0-15.0) % Plt Count 42 L* (150-400) 10^3/uL Neut % (Auto) 73.5 (35-85) % Lymph % (Auto) 14.8 (10-55) % [place] % (Auto) 11.2 (0-16) % Eos % (Auto) 0.3 (0-5) % Baso % (Auto) 0.2 (0-3) % Neut # (Auto) 4.47 (1.80-7.00) 10^3/uL Lymph # (Auto) 0.90 L (1.00-4.80) 10^3/uL [place] # (Auto) 0.68 (0.00-0.80) 10^3/uL Eos # (Auto) 0.02 (0.00-0.45) 10^3/uL Baso # (Auto) 0.01 10^3/uL Sodium (136-145) mEq/L Potassium (3.5-5.0) mEq/L Chloride (98-106) mEq/L Carbon Dioxide (21-32) mmol/L BUN (7-18) mg/dL Creatinine (0.6-1.0) mg/dL Est Cr Clr Drug Dosing mL/min Estimated GFR (MDRD) (>=60) mL/min Glucose (75-99) mg/dL Calcium (8.4-10.1) mg/dL Total Bilirubin (0.0-1.0) mg/dL AST (15-37) U/L ALT (12-78) U/L Alkaline Phosphatase (46-116) U/L Total Protein (6.4-8.2) g/dL Albumin (3.4-5.0) g/dL Urine Color Dark yellow (YELLOW) Urine Appearance Clear (CLEAR) Urine pH 7.0 (4.5-8.0) Ur Specific [place] 1.025 H (1.003-1.020) Urine Protein Negative (NEGATIVE) mg/dL Urine Glucose (UA) Negative (NEGATIVE) mg/dL Urine Ketones Negative (NEGATIVE) mg/dL Urine Occult Blood Trace-intact H (NEGATIVE) Urine Nitrite Negative (NEGATIVE) Urine Bilirubin Small H (NEGATIVE) Urine Urobilinogen 1.0 (0.2-1.0) EU/dL Ur Leukocyte Esterase Negative (NEGATIVE) Urine RBC 0-5 (0-5) /HPF Urine WBC 0-5 (0-5) /HPF Ur Squamous Epith Cells Few H (NOT SEEN) /HPF Urine Bacteria Few H (NOT SEEN) /HPF Urine HCG, Qual Negative Ethyl Alcohol (0-3) mg/dL 01/23/20 Range/Units 08:40 WBC (5.0-10.0) 10^3/uL RBC (4.00-5.50) 10^6/uL Hgb (12.0-16.0) g/dL Hct (37.0-47.0) % MCV (82.0-94.0) fL MCH (27.0-32.0) pg MCHC (33.0-38.0) g/dL RDW Coeff of Renae (11.0-15.0) % Plt Count (150-400) 10^3/uL Neut % (Auto) (35-85) % Lymph % (Auto) (10-55) % [place] % (Auto) (0-16) % Eos % (Auto) (0-5) % Baso % (Auto) (0-3) % Neut # (Auto) (1.80-7.00) 10^3/uL Lymph # (Auto) (1.00-4.80) 10^3/uL [place] # (Auto) (0.00-0.80) 10^3/uL Eos # (Auto) (0.00-0.45) 10^3/uL Baso # (Auto) 10^3/uL Sodium 137 (136-145) mEq/L Potassium 4.2 (3.5-5.0) mEq/L Chloride 102 (98-106) mEq/L Carbon Dioxide 25 (21-32) mmol/L BUN 14 (7-18) mg/dL Creatinine 0.8 (0.6-1.0) mg/dL Est Cr Clr Drug Dosing 79.91 mL/min Estimated GFR (MDRD) > 60 (>=60) mL/min Glucose 123 H (75-99) mg/dL Calcium 8.2 L (8.4-10.1) mg/dL Total Bilirubin 6.6 H (0.0-1.0) mg/dL AST 66 H (15-37) U/L ALT 42 (12-78) U/L Alkaline Phosphatase 132 H (46-116) U/L Total Protein 6.4 (6.4-8.2) g/dL Albumin 2.9 L (3.4-5.0) g/dL Urine Color (YELLOW) Urine Appearance (CLEAR) Urine pH (4.5-8.0) Ur Specific [place] (1.003-1.020) Urine Protein (NEGATIVE) mg/dL Urine Glucose (UA) (NEGATIVE) mg/dL Urine Ketones (NEGATIVE) mg/dL Urine Occult Blood (NEGATIVE) Urine Nitrite (NEGATIVE) Urine Bilirubin (NEGATIVE) Urine Urobilinogen (0.2-1.0) EU/dL Ur Leukocyte Esterase (NEGATIVE) Urine RBC (0-5) /HPF Urine WBC (0-5) /HPF Ur Squamous Epith Cells (NOT SEEN) /HPF Urine Bacteria (NOT SEEN) /HPF Urine HCG, Qual Ethyl Alcohol < 3 (0-3) mg/dL Meds: Medications Discontinued Medications Generic Name Dose Route Start Last Admin Trade Name Mildred PRN Reason Stop Dose Admin Hydromorphone HCl 0.5 mg 01/23/20 07:14 01/23/20 07:35 Dilaudid IM 01/23/20 07:15 0.5 mg ONETIME ONE Administration Hydromorphone HCl Confirm 01/23/20 07:17 01/23/20 07:38 Dilaudid Administered 01/23/20 07:18 Not Given Dose 1 mg .ROUTE .STK-MED ONE Hydromorphone HCl 0.5 mg 01/23/20 08:04 01/23/20 08:08 Dilaudid IM 01/23/20 08:05 0.5 mg ONETIME ONE Administration Ondansetron HCl 4 mg 01/23/20 07:18 01/23/20 07:34 Zofran Odt PO 01/23/20 07:19 4 mg ONETIME ONE Administration - Radiology Interpretation Free Text/Narrative:: Right hip xray: no fracture seen. no dislocation. CT: Pelvis without contrast: nondisplaced inferior pubic ramus fracture CT Results Date: 01/23/20 CT Results Time: 08:25 - Re-Assessments/Exams Free Text/Narrative Re-Assessment/Exam: 01/23/20 08:34 Called [facility] and spoke to one call, micky orthopedic 01/23/20 09:[address] Bennett orthopedic about this patient. He reports pain management and weight bearing as tolerated. 01/23/20 09:18 This patient does not have family at home, she reports her brother is in [place]. Patient can not bear weight in the ER. I will admit patient, manage her pain, attempt to PT this patient to ambulate. However, it is possible this patient may need swing for PT or need [facility] care. Will admit. 01/23/20 09:32 Held Lovenox, as her platelets are low at 42. They are chronically low. Explained very high risk of patient having another stroke, clot, PE, MT, or . Also explained risk of lovenox with low platelet. Departure - Departure Time of Disposition: 08:31 Disposition: Admitted As Inpatient 64 Condition: Fair Clinical Impression: Ataxic gait, Chronic liver disease, Chronic tachycardia, Alcohol abuse Inferior pubic ramus fracture Qualifiers: Encounter type: initial encounter Fracture type: closed Laterality: right Qualified Code(s): S32.591A - Other specified fracture of right pubis, initial encounter for closed fracture CVA (cerebral vascular accident) Qualifiers: CVA mechanism: other Qualified Code(s): I63.89 - Other cerebral infarction - Discharge Information *PRESCRIPTION DRUG MONITORING PROGRAM REVIEWED*: Not Applicable *COPY OF PRESCRIPTION DRUG MONITORING REPORT IN PATIENT MAC: Not Applicable Sepsis Event Note - Evaluation Sepsis Screening Result: No Definite Risk - Focused Exam Vital Signs: Vital Signs Temp Pulse Resp BP Pulse Ox 01/23/20 06:36 98.9 F 108 H 18 142/76 H 98 Date Exam was Performed: 01/23/20 Time Exam was Performed: 09:32 - My Orders Last 24 Hours: My Active Orders 01/23/20 07:13 Hip Min 2V or 3V w Pelvis Rt [CR] Stat 01/23/20 07:51 Pelvis wo Cont [CT] Stat - Assessment/Plan Last 24 Hours: My Active Orders 01/23/20 07:13 Hip Min 2V or 3V w Pelvis Rt [CR] Stat 01/23/20 07:51 Pelvis wo Cont [CT] Stat Plan: PLEASE SEE RN NOTE FOR PFSH
[2020-01-23 09:04] LABS: CHLORIDE,CL 102 mEq/L (98-106); SODIUM,NA 137 mEq/L (136-145)
[2020-01-23] MEDS ORDERED: Docusate Sodium 100 MG Cap PO PRN (10:48)
[2020-01-23] MEDS ORDERED: Ondansetron 4 MG/2 ML SDV IV PRN (10:48)
[2020-01-23] MEDS: Lactulose Soln 10 GM/15 ML 30 ML UD Cup PO SCH ×2 (14:20→21:08)
[2020-01-23] MEDS: Morphine 2 MG/ML Syringe IVPUSH PRN ×2 (17:28→23:29)
--- NOTE | 2020-01-23 18:53 | PCM.SN ---
- Free Text/Narrative Note: 01/23/2020 1640 I was notified by RN that the patient at 0930 today after admission had a temperature of 101.1. Patient when came to the ER denied fever, headache, n, v, congestion, drainage, cough. She did report fatigue. This morning in ER patient did not meet criteria for COVID testing. The patient recently did have admission at [facility] and then at a rehab facility, discharged home yesterday. The patient does now meet criteria for COVID testing due to travel to a populated area with confirmed COVID and now developing a fever greater than 100.4. I immediately, told staff to initiate PPE, droplet/airborne precautions. CXR was ordered portable, influenza, COVID, CRP, Mag, Blood CXs, Lactic acid. I contacted Vani Garcia to inform her of this finding and will move patient to a more isolated room in the hospital. Mask was applied to patient, all other patient room doors closed, patient moved in her bed to now room 115. 01/23/2020 1820 CXR lungs are clear. Influenza negative. CRP elevated. Magnesium mildly low and chronic. COVID test is sent out this evening via carrier with health department. Will continue admit, PPE precautions. No further orders at this time.
[2020-01-23] MEDS: oxyCODONE 5 MG Tab PO PRN (21:12)
[2020-01-24] MEDS: oxyCODONE 5 MG Tab PO PRN ×2 (04:30→15:53)
[2020-01-24 07:42] LABS: CHLORIDE,CL 100 mEq/L (98-106); SODIUM,NA 135 mEq/L (136-145)
[2020-01-24] MEDS: Lactulose Soln 10 GM/15 ML 30 ML UD Cup PO SCH ×3 (07:51→20:11)
[2020-01-24] MEDS: Morphine 2 MG/ML Syringe IVPUSH PRN ×2 (07:57→20:24)
[2020-01-24] MEDS ORDERED: Folic Acid 1 MG Tab PO SCH (08:00)
[2020-01-24] MEDS ORDERED: RIFAXIMIN 200 MG PO SCH (08:00)
[2020-01-24] MEDS ORDERED: Spironolactone 25 MG Tab PO SCH (08:00)
[2020-01-24] MEDS ORDERED: Thiamine 100 MG Tab PO SCH (08:00)
[2020-01-24] MEDS ORDERED: Sodium Chloride 0.9% 500 ML IV ONE ×2 (10:00→11:15)
--- NOTE | 2020-01-24 10:05 | PCM.PN ---
- General Info Date of Service: 01/24/20 Functional Status: Reports: Pain Controlled (but still has some pain with movement), Tolerating Diet, Ambulating (to the bathroom with assistance, slowly. ) - Review of Systems General: Denies: Fever (no fever today) HEENT: Reports: No Symptoms Pulmonary: Reports: No Symptoms Cardiovascular: Reports: No Symptoms Gastrointestinal: Reports: No Symptoms Genitourinary: Reports: No Symptoms Musculoskeletal: Reports: Other (right pelvis pain) Skin: Reports: No Symptoms Neurological: Reports: Pre-Existing Deficit (mildly slurred speech and mild right sided weakness. chronic stroke) Psychiatric: Reports: No Symptoms - Patient Data Vitals - Most Recent: Last Vital Signs Temp 97.7 F 01/24/20 08:00 Pulse 130 H 01/24/20 08:00 Resp 18 01/24/20 08:00 BP 108/61 01/24/20 08:00 Pulse Ox 96 01/24/20 08:00 Weight - Most Recent: 146 lb 8 oz Lab Results Last 24 Hours: Laboratory Results - last 24 hr 01/23/20 01/23/20 01/23/20 Range/Units 17:45 17:45 17:45 WBC (5.0-10.0) 10^3/uL RBC (4.00-5.50) 10^6/uL Hgb (12.0-16.0) g/dL Hct (37.0-47.0) % MCV (82.0-94.0) fL MCH (27.0-32.0) pg MCHC (33.0-38.0) g/dL RDW Coeff of Renae (11.0-15.0) % Plt Count (150-400) 10^3/uL Neut % (Auto) (35-85) % Lymph % (Auto) (10-55) % [place] % (Auto) (0-16) % Eos % (Auto) (0-5) % Baso % (Auto) (0-3) % Neut # (Auto) (1.80-7.00) 10^3/uL Lymph # (Auto) (1.00-4.80) 10^3/uL Nicholas # (Auto) (0.00-0.80) 10^3/uL Eos # (Auto) (0.00-0.45) 10^3/uL Baso # (Auto) 10^3/uL Sodium (136-145) mEq/L Potassium (3.5-5.0) mEq/L Chloride (98-106) mEq/L Carbon Dioxide (21-32) mmol/L BUN (7-18) mg/dL Creatinine (0.6-1.0) mg/dL Est Cr Clr Drug Dosing mL/min Estimated GFR (MDRD) (>=60) mL/min Glucose (75-99) mg/dL Lactic Acid 1.8 (0.4-2.0) mmol/L Calcium (8.4-10.1) mg/dL Magnesium 1.6 L (1.8-2.4) mg/dL Total Bilirubin (0.0-1.0) mg/dL AST (15-37) U/L ALT (12-78) U/L Alkaline Phosphatase (46-116) U/L C-Reactive Protein 2.6 H (0.2-0.8) mg/dL Total Protein (6.4-8.2) g/dL Albumin (3.4-5.0) g/dL 01/24/20 01/24/20 Range/Units 07:15 07:15 WBC 8.1 (5.0-10.0) 10^3/uL RBC 2.92 L (4.00-5.50) 10^6/uL Hgb 12.0 (12.0-16.0) g/dL Hct 34.1 L (37.0-47.0) % MCV 116.8 H (82.0-94.0) fL MCH 41.1 H (27.0-32.0) pg MCHC 35.2 (33.0-38.0) g/dL RDW Coeff of Renae 15.9 H (11.0-15.0) % Plt Count 35 L* (150-400) 10^3/uL Neut % (Auto) 66.9 (35-85) % Lymph % (Auto) 17.1 (10-55) % Nicholas % (Auto) 14.3 (0-16) % Eos % (Auto) 1.5 (0-5) % Baso % (Auto) 0.2 (0-3) % Neut # (Auto) 5.44 (1.80-7.00) 10^3/uL Lymph # (Auto) 1.39 (1.00-4.80) 10^3/uL Nicholas # (Auto) 1.16 H (0.00-0.80) 10^3/uL Eos # (Auto) 0.12 (0.00-0.45) 10^3/uL Baso # (Auto) 0.02 10^3/uL Sodium 135 L (136-145) mEq/L Potassium 4.1 (3.5-5.0) mEq/L Chloride 100 (98-106) mEq/L Carbon Dioxide 26 (21-32) mmol/L BUN 14 (7-18) mg/dL Creatinine 0.9 (0.6-1.0) mg/dL Est Cr Clr Drug Dosing 71.03 mL/min Estimated GFR (MDRD) > 60 (>=60) mL/min Glucose 151 H (75-99) mg/dL Lactic Acid (0.4-2.0) mmol/L Calcium 7.8 L (8.4-10.1) mg/dL Magnesium (1.8-2.4) mg/dL Total Bilirubin 7.8 H (0.0-1.0) mg/dL AST 61 H (15-37) U/L ALT 36 (12-78) U/L Alkaline Phosphatase 104 (46-116) U/L C-Reactive Protein (0.2-0.8) mg/dL Total Protein 6.2 L (6.4-8.2) g/dL Albumin 2.5 L (3.4-5.0) g/dL Morgan Results Last 24 Hours: Microbiology 01/23/20 17:45 Influenza Type A Antigen Screen - Final Nasal, Unspecified NEGATIVE INFLUENZA A VIRUS AG REFERENCE RANGE: NEGATIVE Influenza Type B Antigen Screen - Final NEGATIVE INFLUENZA B VIRUS AG REFERENCE RANGE: NEGATIVE Med Orders - Current: Current Medications Docusate Sodium (Colace) 100 mg PO BID PRN PRN Reason: Constipation Folic Acid (Folic Acid) 1 mg PO DAILY [facility] Last Admin: 01/24/20 07:51 Dose: 1 mg Lactulose (Cephulac) 30 gm PO TID HARLEEN Last Admin: 01/24/20 07:51 Dose: 30 gm Morphine Sulfate (Morphine) 2 mg IVPUSH Q2H PRN PRN Reason: Pain (severe 7-10) Last Admin: 01/24/20 07:57 Dose: 2 mg Non-Formulary Medication (Rifaximin [Xifaxan]) 200 mg PO DAILY [facility] Ondansetron HCl (Zofran) 4 mg IV Q6H PRN PRN Reason: Nausea/Vomiting Oxycodone HCl (Oxycodone) 5 mg PO Q4H PRN PRN Reason: Pain (moderate 4-6) Last Admin: 01/24/20 04:30 Dose: 5 mg Spironolactone (Aldactone) 100 mg PO DAILY [facility] Last Admin: 01/24/20 07:51 Dose: 100 mg Thiamine HCl (Vitamin B-1) 100 mg PO DAILY [facility] Last Admin: 01/24/20 07:51 Dose: 100 mg Discontinued Medications Hydromorphone HCl (Dilaudid) 0.5 mg IM ONETIME ONE Stop: 01/23/20 07:15 Last Admin: 01/23/20 07:35 Dose: 0.5 mg Hydromorphone HCl (Dilaudid) Confirm Administered Dose 1 mg .ROUTE .STK-MED ONE Stop: 01/23/20 07:18 Last Admin: 01/23/20 07:38 Dose: Not Given Hydromorphone HCl (Dilaudid) 0.5 mg IM ONETIME ONE Stop: 01/23/20 08:05 Last Admin: 01/23/20 08:08 Dose: 0.5 mg Ondansetron HCl (Zofran Odt) 4 mg PO ONETIME ONE Stop: 01/23/20 07:19 Last Admin: 01/23/20 07:34 Dose: 4 mg - Exam General: Alert, Oriented, Cooperative, No Acute Distress HEENT: Pupils Equal, Pupils Reactive, Mucous Membr. Moist/[place] Neck: Supple, Trachea Midline, No JVD Lungs: Clear to Auscultation, Normal Respiratory Effort Cardiovascular: Tachycardia (128 on exam) GI/Abdominal Exam: Soft, Non-Tender Back Exam: Normal Inspection, Full Range of Motion Extremities: Normal Inspection, Non-Tender, No Pedal Edema, Normal Capillary Refill, Limited Range of Motion (right hip due to pain. ), Other (Pain, tenderness right hip/pelvis. ) Peripheral Pulses: 2+: Radial (L), Radial (R), Posterior Tibial (L), Posterior Tibial (R), Dorsalis Pedis (L), Dorsalis Pedis (R) Skin: Warm, Dry, Intact Neurological: Other (chronic, sluured speech mild, easily understood. ) Psy/Mental Status: Alert, Normal Affect, Normal Mood Sepsis Event Note - Evaluation Sepsis Screening Result: No Definite Risk - Focused Exam Vital Signs: Vital Signs Temp Pulse Resp BP Pulse Ox 01/24/20 08:00 97.7 F 130 H 18 108/61 96 01/24/20 04:00 98.2 F 135 H 20 97/62 94 L 01/23/20 23:30 99.0 F 119 H 20 113/72 93 L Date Exam was Performed: 01/24/20 Time Exam was Performed: 14:22 - Problem List Review Problem List Initiated/Reviewed/Updated: Yes - My Orders Last 24 Hours: My Active Orders 01/23/20 09:24 Resuscitation Status Routine 01/23/20 10:08 OT Evaluation and Treatment [CONS] Routine PT Evaluation and Treatment [CONS] Routine 01/23/20 10:48 Patient Status [ADT] Routine Ambulate [RC] .PRN Antiembolic Devices [RC] 1000,2200 Height and Weight [RC] 0600 Intake and Output [RC] .PRN Notify Provider Vital Signs [RC] .PRN Oxygen Therapy [RC] .PRN Up With Assistance [RC] .PRN Up to Chair [RC] .PRN Vital Signs [RC] 0000,0400,0800,1200,1600,2000 Docusate Sodium [Colace] 100 mg PO BID PRN Morphine 2 mg IVPUSH Q2H PRN Ondansetron [Zofran] 4 mg IV Q6H PRN oxyCODONE 5 mg PO Q4H PRN Antiembolic Hose [OM.PC] Per Unit Routine Sequential Compression Device [OM.PC] Routine 01/23/20 14:00 Lactulose [Cephulac] 30 gm PO TID 01/23/20 16:40 Chest 1V Frontal [CR] Stat 01/23/20 16:49 Isolation [COMM] Routine 01/23/20 17:00 Blood Culture x2 Reflex Set [OM.PC] Stat 01/23/20 17:40 CULTURE BLOOD [BC] Stat 01/23/20 17:45 CULTURE BLOOD [BC] Stat 04/04/20 17:50 CORONAVIRUS COVID-19 PCR PHL [MREF] Stat 01/23/20 Lunch Heart Healthy Diet [DIET] 01/24/20 08:00 Folic Acid 1 mg PO DAILY Rifaximin [Xifaxan] 200 mg PO DAILY Spironolactone [Aldactone] 100 mg PO DAILY Thiamine [Vitamin B-1] 100 mg PO DAILY 01/24/20 10:00 Sodium Chloride 0.9% [Normal Saline] 500 ml IV .BOLUS 01/25/20 05:00 CBC WITH AUTO DIFF [HEME] DAILY CMP [COMPREHENSIVE METABOLIC PN,CMP] [CHEM] DAILY 01/26/20 05:00 CBC WITH AUTO DIFF [HEME] DAILY CMP [COMPREHENSIVE METABOLIC PN,CMP] [CHEM] DAILY - Plan Plan:: 01/24/2020 1000 This patient today was able to ambulate to the bathroom with staff assistance with pain and slowly. Patient reports that she still has right hip pelvis pain, but improved with pain medication IV. Patient this morning was tachycardic 130- 135. Her baseline is typically 110-120. Regular, sinus tach. The patient magnesium level is slightly low at 1.6, she is chronically low. Her platelets today are 35,000, will continue to monitor this as she is chronically low, and has been much lower in the past. Her sodium level today is 135. Will continue admit, manage pain, have PT evaluate, social problems specialist for possible placement vs home care, give NS 1000ml bolus for tachycardia. Will continue to monitor patient and labs, will have PCP see tomorrow. Continued PPE isolation until COVID results obtained, these were sent out last night.
[2020-01-24] MEDS ORDERED: Sodium Chloride 0.9% 1,000 ML IV ONE (15:26)
[2020-01-24] MEDS ORDERED: Sodium Chloride 0.9% 1,000 ML IV SCH (17:12)
--- NOTE | 2020-01-24 19:01 | PCM.SN ---
- Free Text/Narrative Note: 01/24/2020 1600 I was informed patient has tachycardia of rate as high of 140, which she did have rate of 130s earlier today, NS bolus was ordered earlier. The patient rate remains upper 130s, BP was 80s/50s. I ordered a 2nd Liter of NS bolus. The patient denies any symptoms other than pelvis pain. She denies malagon, dizziness, n , v, d, fever, chest pain, shortness of breath, vertigo, positional change dizziness. She is alert and oriented. She is able to sit up in bed without difficulty. Her hgb is normal today, which normally it is lower, so possibly could indicate dehydration. Will evaluate after 2nd Liter NS. She does have chronic history of tachycardia. Upon reviewing previous records she has been 120s in past on multiple visits and a diagnosis of tachycardia in the past. EKG rate of 140, sinus tach. She does have history of SVT, however, patient is asymptomatic and rate is 140, vs last time was 180s. 01/24/2020 1820 The patient HR is now 128, BP is 93/57. Patient still remains asymptomatic. I have ordered NS fluids 75ml/hr to give a total of 1L NS. She has already had 2L NS boluses. I considered a CT angio of the chest, however, patient is allergic to contrast dye. The patient oxygen saturation is 98% on RA at this time. Have ordered a d-dimer. If positive will order BLE US venous to rule out DVTs. 01/24/2020 1910 I called and spoke to Dr. Eddy hospitalist at [facility] about this patient. She is familiar with the patient. She reports that she agrees that giving her 2L NS bolus and NS rate was correct, as she feels she could be dehydrated. She also recommends a CT angio and venous US, but can do a D-Dimer, if negative dont do, if positive, do. She reports that patient tachycardia could be due to patient chronic history of alcoholism, liver cirrhosis, and now possible withdraw. At this time I have ordered a d-dimer, awaiting results.
[2020-01-24 20:17] VITALS: BP 96/63; PULSE 135
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
== END 2020-01-24 23:32 | DRG 536 ==
LOC: CC.ED 06:30 → CC.MS 09:15 → UNDOADMIN 09:15 → CC.MS 09:21 → UNDODISIN 01-24 23:32
PROVIDERS: ADMIT Nurse Practitioner; ATTEND Family Medicine
DX: S32.591A Other specified fracture of right pubis, initial encounter for closed fracture (principal); I63.89 Other cerebral infarction; R26.0 Ataxic gait; W18.39XA Other fall on same level, initial encounter; Z87.19 Personal history of other diseases of the digestive system; S32.501A Unspecified fracture of right pubis, initial encounter for closed fracture; R00.0 Tachycardia, unspecified; R50.9 Fever, unspecified; F17.200 Nicotine dependence, unspecified, uncomplicated; K74.60 Unspecified cirrhosis of liver; F10.10 Alcohol abuse, uncomplicated; F41.9 Anxiety disorder, unspecified; F43.10 Post-traumatic stress disorder, unspecified; D64.9 Anemia, unspecified; G62.9 Polyneuropathy, unspecified; Z96.649 Presence of unspecified artificial hip joint; F10.20 Alcohol dependence, uncomplicated; W19.XXXA Unspecified fall, initial encounter; Y90.9 Presence of alcohol in blood, level not specified; Y92.002 Bathroom of unspecified non-institutional (private) residence as the place of occurrence of the external cause; Z86.73 Personal history of transient ischemic attack (TIA), and cerebral infarction without residual deficits; Z91.041 Radiographic dye allergy status; Z88.8 Allergy status to other drugs, medicaments and biological substances; Z91.048 Other nonmedicinal substance allergy status; Z79.899 Other long term (current) drug therapy
CPT/HCPCS: 36415; 71045; 72192; 80053; 80307; 81001; 81025; 83605; 83735; 84484; 85025; 85379; 86140; 87040; 87804; 93005; 96372; 99285-25; A9270-GY; J1170; J2270; J7030; J7040; U0002

== ENCOUNTER 2020-02-28 11:24 | Emergency (ER) | payer MEDICAID, OTHER ==
[2020-02-28 11:33] VITALS: BP 103/54; PULSE 97
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
== END 2020-02-28 12:29 | disposition home or self-care (01) ==
LOC: CC.ED 11:24
DX: S63.502A Unspecified sprain of left wrist, initial encounter (principal); G62.9 Polyneuropathy, unspecified; Z91.041 Radiographic dye allergy status; Z88.5 Allergy status to narcotic agent; Z86.73 Personal history of transient ischemic attack (TIA), and cerebral infarction without residual deficits; Z91.048 Other nonmedicinal substance allergy status; F17.210 Nicotine dependence, cigarettes, uncomplicated; W01.0XXA Fall on same level from slipping, tripping and stumbling without subsequent striking against object, initial encounter
CPT/HCPCS: 73110-LT; 99283; 99283-25

== ENCOUNTER 2020-02-29 12:42 | Inpatient (IN) | payer MEDICAID, OTHER ==
[2020-02-29] MEDS ORDERED: Sodium Chloride 0.9% 1,000 ML IV SCH (13:45)
--- NOTE | 2020-02-29 13:51 | EDM.PDOC ---
ED HPI GENERAL MEDICAL PROBLEM - General Chief Complaint: General Stated Complaint: WEAKNESS/AMBULANCE Time Seen by Provider: 02/29/20 13:15 Source of Information: Reports: Patient, EMS History Limitations: Reports: No Limitations - History of Present Illness INITIAL COMMENTS - FREE TEXT/NARRATIVE: Patient presents to ER with complaints of increased weakness. Has been having more issues with this as of late, states legs won't hold her up. Fell yesterday and was seen here as well due to wrist pain. Had xrays then, no fracture. Is wearing a brace due to a sprain. Patient relates "unable to get to the bathroom as her legs gave out and her walker got away from her". Had to crawl across floor to call for her friend to come help her. Patient has history of cirrhosis. Had CVA in past as well. Relates she routinely runs a low grade fever. Denies shortness of breath, chest pain, abdominal pain, nausea or vomiting. Do9es admit that she has not been voiding often, may be dehydrated. Had BM yesterday. Has been taking all her meds as directed. Onset: Gradual Duration: Week(s):, Getting Worse Location: Reports: Generalized Severity: Moderate Improves with: Reports: Rest Associated Symptoms: Reports: Fever/Chills, Weakness. Denies: Confusion, Chest Pain, Cough, Headaches, Loss of Appetite, Nausea/Vomiting, Shortness of Breath, Syncope - Related Data Allergies Allergy/AdvReac Type Severity Reaction Status Date / Time morphine Allergy Hallucinati Verified 02/29/20 13:[address] contrast dye Allergy Shortness Uncoded 02/29/20 13:59 of Breath laundry soa[ Allergy Rash Uncoded 02/29/20 13:59 plastic tape Allergy Rash Uncoded 02/29/20 13:59 Home Meds: Home Meds Folic Acid 1 mg PO DAILY 12/05/19 [History] Lactulose [Cephulac] 45 ml PO TID 12/05/19 [History] Rifaximin [Xifaxan] 200 mg PO DAILY 12/05/19 [History] Spironolactone [Aldactone] 1 cap PO DAILY 12/05/19 [History] Past Medical History HEENT History: Reports: Other (See Below) Other HEENT History: BLOOD VESSEL THAT BURST IN HER THROAT; 2017 Cardiovascular History: Reports: Heart Murmur Respiratory History: Reports: None Gastrointestinal History: Reports: Cirrhosis, GI Bleed, Other (See Below) Other Gastrointestinal History: liver failure. ascites Genitourinary History: Reports: None [employer] History: Reports: Endometriosis Musculoskeletal History: Reports: Fracture Neurological History: Reports: CVA, Neuropathy, Peripheral, Speech Problems Psychiatric History: Reports: Addiction, Anxiety, Panic Attack, PTSD, Other ( See Below) Other Psychiatric History: ETOH abuse Endocrine/Metabolic History: Reports: None Hematologic History: Reports: Anemia Immunologic History: Reports: None Oncologic (Cancer) History: Reports: None Dermatologic History: Reports: None - Infectious Disease History Infectious Disease History: Reports: Chicken Pox Other Infectious Disease History: hx mrsa in area of hernia repair - Past Surgical History Cardiovascular Surgical History: Reports: None Respiratory Surgical History: Reports: None GI Surgical History: Reports: Hernia Repair/Other Female Surgical History: Reports: None Musculoskeletal Surgical History: Reports: Hip Replacement Oncologic Surgical History: Reports: None Social & Family History - Family History Family Medical History: Noncontributory Cardiac: Reports: CAD, High Cholesterol, Hypertension GI: Reports: Other (See Below) Musculoskeletal: Reports: Osteoarthritis - Tobacco Use Smoking Status *Q: Current Every Day Smoker - Caffeine Use Caffeine Use: Reports: Soda Caffeine Use Comment: 3 cans a day - Living Situation & Occupation Living situation: Reports: Single, Alone Occupation: Disabled ED ROS GENERAL - Review of Systems Review Of Systems: See Below Constitutional: Reports: Fever, Chills, Malaise, Weakness, Fatigue. Denies: Decreased Appetite HEENT: Denies: Ear Pain, Nosebleed, Sinus Problem, Throat Pain Respiratory: Denies: Shortness of Breath, Cough Cardiovascular: Denies: Chest Pain, Edema, Lightheadedness Endocrine: Denies: Fatigue GI/Abdominal: Denies: Abdominal Pain, Constipation, Diarrhea, Nausea, Vomiting : Reports: No Symptoms Musculoskeletal: Reports: No Symptoms Skin: Reports: Jaundice Neurological: Reports: Weakness. Denies: Confusion, Dizziness, Headache Psychiatric: Reports: No Symptoms ED EXAM, GENERAL - Physical Exam Exam: See Below Exam Limited By: No Limitations General Appearance: Alert, WD/WN, No Apparent Distress Ears: Normal External Exam, Normal TMs Nose: Normal Inspection, Normal Mucosa, No Blood Throat/Mouth: Normal Inspection, Normal Oropharynx Head: Normocephalic Neck: Normal Inspection, Supple, Non-Tender Respiratory/Chest: No Respiratory Distress, Lungs Clear, Normal Breath Sounds Cardiovascular: Regular Rate, Rhythm GI/Abdominal: Normal Bowel Sounds, Soft, Non-Tender Extremities: Normal Inspection, No Pedal Edema Neurological: Alert, Oriented Skin Exam: Warm, Dry, Jaundice Course - Vital Signs Last Recorded V/S: Last Vital Signs Temp 99.7 F 02/29/20 12:45 Pulse 91 02/29/20 12:45 Resp 20 02/29/20 12:45 BP 101/50 L 02/29/20 12:45 Pulse Ox 98 02/29/20 12:45 - Orders/Labs/Meds Orders: Active Orders 24 hr Category Date Time Status AMMONIA [REF] Stat Lab 02/29/20 13:00 Received CORONAVIRUS COVID-19 PCR PHL Stat Lab 02/29/20 12:57 Received Sodium Chloride 0.9% [Normal Saline] 1,000 ml Med 02/29/20 13:45 Active IV ASDIRECTED Medication Orders Sodium Chloride (Normal Saline) 1,000 mls @ 150 mls/hr IV ASDIRECTED HARLEEN Last Admin: 02/29/20 13:41 Dose: 150 mls/hr Labs: Laboratory Tests 02/29/20 02/29/20 02/29/20 Range/Units 12:57 12:57 13:19 WBC 5.1 (5.0-10.0) 10^3/uL RBC 2.74 L (4.00-5.50) 10^6/uL Hgb 11.0 L (12.0-16.0) g/dL Hct 33.0 L (37.0-47.0) % MCV 120.4 H (82.0-94.0) fL MCH 40.1 H (27.0-32.0) pg MCHC 33.3 (33.0-38.0) g/dL RDW Coeff of Renae 17.1 H (11.0-15.0) % Plt Count 42 L* (150-400) 10^3/uL Neut % (Auto) 69.8 (35-85) % Lymph % (Auto) 15.8 (10-55) % [place] % (Auto) 12.1 (0-16) % Eos % (Auto) 2.1 (0-5) % Baso % (Auto) 0.2 (0-3) % Neut # (Auto) 3.58 (1.80-7.00) 10^3/uL Lymph # (Auto) 0.81 L (1.00-4.80) 10^3/uL [place] # (Auto) 0.62 (0.00-0.80) 10^3/uL Eos # (Auto) 0.11 (0.00-0.45) 10^3/uL Baso # (Auto) 0.01 10^3/uL Sodium 139 (136-145) mEq/L Potassium 4.0 (3.5-5.0) mEq/L Chloride 105 (98-106) mEq/L Carbon Dioxide 27 (21-32) mmol/L BUN 15 (7-18) mg/dL Creatinine 1.0 (0.6-1.0) mg/dL Est Cr Clr Drug Dosing TNP Estimated GFR (MDRD) > 60 (>=60) mL/min Glucose 160 H (75-99) mg/dL Calcium 8.7 (8.4-10.1) mg/dL Total Bilirubin 5.9 H (0.0-1.0) mg/dL AST 61 H (15-37) U/L ALT 32 (12-78) U/L Alkaline Phosphatase 148 H (46-116) U/L C-Reactive Protein 1.4 H (0.2-0.8) mg/dL NT-Pro-B Natriuret Pep 61 (0-1000) pg/mL Total Protein 6.5 (6.4-8.2) g/dL Albumin 2.7 L (3.4-5.0) g/dL Urine Color Dark yellow (YELLOW) Urine Appearance Clear (CLEAR) Urine pH 7.0 (4.5-8.0) Ur Specific Geraldine 1.025 H (1.003-1.020) Urine Protein Negative (NEGATIVE) mg/dL Urine Glucose (UA) Negative (NEGATIVE) mg/dL Urine Ketones Trace H (NEGATIVE) mg/dL Urine Occult Blood Negative (NEGATIVE) Urine Nitrite Negative (NEGATIVE) Urine Bilirubin Small H (NEGATIVE) Urine Urobilinogen >=8.0 H (0.2-1.0) EU/dL Ur Leukocyte Esterase Negative (NEGATIVE) Meds: Medications Generic Name Dose Route Start Last Admin Trade Name Freq PRN Reason Stop Dose Admin Sodium Chloride 1,000 mls @ 150 mls/hr 02/29/20 13:45 02/29/20 13:41 Normal Saline IV 150 mls/hr ASDIRECTED HARLEEN Administration - Re-Assessments/Exams Free Text/Narrative Re-Assessment/Exam: 02/29/20 14:33 Patient does have elevated liver enzymes, which are chronic for her, and actually better than with last evaluation. Temp 100.0 now. Labs are all relatively stable. Discussed with Dr. Somers. Patient admits unable to care for self. Will admit observation until arrangements can be made for residential placement again with a [place]-covered facility. Departure - Departure Time of Disposition: 14:50 Disposition: Refer to Observation Condition: Fair Clinical Impression: Weakness, Failure to thrive - Discharge Information *PRESCRIPTION DRUG MONITORING PROGRAM REVIEWED*: No *COPY OF PRESCRIPTION DRUG MONITORING REPORT IN PATIENT MAC: No Forms: ED Department Discharge Sepsis Event Note - Focused Exam Vital Signs: Vital Signs Temp Pulse Resp BP Pulse Ox 02/29/20 12:45 99.7 F 91 20 101/50 L 98 Date Exam was Performed: 02/29/20 Time Exam was Performed: 14:33 - Problem List & Annotations (1) Failure to thrive SNOMED Code(s): 95709188 Code(s): MZS8122 - Status: Acute (2) Weakness SNOMED Code(s): 66266371 Code(s): R53.1 - WEAKNESS Status: Acute - Problem List Review Problem List Initiated/Reviewed/Updated: Yes - My Orders Last 24 Hours: My Active Orders 02/29/20 12:57 CORONAVIRUS COVID-19 PCR PHL Stat 02/29/20 13:00 AMMONIA [REF] Stat 02/29/20 13:45 Sodium Chloride 0.9% [Normal Saline] 1,000 ml IV ASDIRECTED - Assessment/Plan Admission H&P: Please use this note as an admission H&P Last 24 Hours: My Active Orders 02/29/20 12:57 CORONAVIRUS COVID-19 PCR PHL Stat 02/29/20 13:00 AMMONIA [REF] Stat 02/29/20 13:45 Sodium Chloride 0.9% [Normal Saline] 1,000 ml IV ASDIRECTED Assessment:: Weakness Failure to Thrive Plan: Admit observation as vulnerable adult. manager student services consult for residential placement as unable to care for self.
[2020-02-29 13:58] LABS: CHLORIDE,CL 105 mEq/L (98-106); SODIUM,NA 139 mEq/L (136-145)
[2020-02-29] MEDS ORDERED: Ondansetron 4 MG/2 ML SDV IV PRN (15:53)
[2020-02-29] MEDS ORDERED: Ondansetron 4 MG Tab.DIS PO PRN (15:53)
[2020-02-29] MEDS ORDERED: Enoxaparin 40 MG/0.4 ML Syringe SUBCUT SCH (15:53)
[2020-02-29] MEDS ORDERED: Ibuprofen 200 MG Tab PO PRN (15:53)
[2020-02-29] MEDS: Sodium Chloride 0.9% 1,000 ML IV SCH (19:59)
[2020-02-29] MEDS: SILDENAFIL 20 MG PO SCH (20:25)
[2020-02-29] MEDS: LACTULOSE PO SCH (20:26)
[2020-02-29] MEDS: MAGNESIUM OXIDE PO SCH (20:26)
[2020-02-29] MEDS: RIFAXIMIN 550 MG PO SCH (20:26)
[2020-02-29] MEDS: Nicotine 14 MG/24 Hr Patch TRDERM SCH (20:33)
[2020-03-01 07:29] LABS: CHLORIDE,CL 107 mEq/L (98-106); SODIUM,NA 139 mEq/L (136-145)
[2020-03-01] MEDS: Aspirin 81 MG Tab.EC PO SCH (07:56)
[2020-03-01] MEDS: Nicotine 14 MG/24 Hr Patch TRDERM SCH (07:56)
[2020-03-01] MEDS: LACTULOSE PO SCH ×3 (07:56→19:22)
[2020-03-01] MEDS: MAGNESIUM OXIDE PO SCH ×2 (07:58→19:24)
[2020-03-01] MEDS: ESCITALOPRAM 10 MG PO SCH (07:58)
[2020-03-01] MEDS: Furosemide 40 MG Tab **OWN MED PO SCH (07:59)
[2020-03-01] MEDS: RIFAXIMIN 550 MG PO SCH ×2 (08:00→19:23)
[2020-03-01] MEDS: SILDENAFIL 20 MG PO SCH ×3 (08:00→19:24)
[2020-03-01] MEDS: SPIRONOLACTONE 100 MG PO SCH (08:01)
[2020-03-01] MEDS: Sodium Chloride 0.9% 1,000 ML IV SCH (09:21)
[2020-03-01] MEDS ORDERED: Magnesium Sulfate/D5W 2 GM in Premix Bag 1 BAG IV ONE (09:50)
[2020-03-01] MEDS: Pantoprazole 40 MG Vial IVPUSH SCH (10:11)
--- NOTE | 2020-03-01 12:18 | PN ---
DATE: 03/01/2020 S: Mrs. Lomas was admitted yesterday by Kyra Fields for weakness, unable to care for herself at home, and failure to thrive. This is the first time I have met this pleasant 39-year-old female. She has an apparent longstanding history of alcoholic cirrhosis and prior CVA. She has had repeated admissions for similar type complaints apparently where she just gets to point where she cannot care for herself at home and does not have 24 hour cares. She is at a point where she desires and agrees to [facility] placement. [facility] and we are trying to arrange it through that facility. Upon admission, she does have chronically elevated liver enzymes related to her alcoholic liver disease. She is pancytopenic, which I believe is also chronic for her, and looking at her labs, she is hypomagnesemic. The patient was seen with nursing staff. She offers up no real concern. She does have some degree of minimalization with discussion. She does answer questions appropriately, but offers up no other concerns. She has not had any fever since admission. She denies any complaints of pain. It sounds like she has had paracentesis in the past, but her fluid status has been apparently fine, or as of late, she has not needed any drainage procedure and has not had any significant peripheral edema. Renal function was normal on admit. O: GENERAL: When I examined her today, she is pleasant and cooperative. HEENT: Grossly benign. She has scleral icterus. NECK: Supple. LUNGS: Lung sounds are clear without signs of failure. CARDIAC: Tones are regular. ABDOMEN: Soft. She does not have much for ascitic fluid. Minimal fluid wave seen. EXTREMITIES: No peripheral edema is seen. SKIN: Jaundiced. ASSESSMENT: 1. ALCOHOLIC LIVER DISEASE. 2. PANCYTOPENIA, CHRONIC. 3. HYPOMAGNESEMIA. 4. WEAKNESS. 5. HISTORY OF CEREBROVASCULAR ACCIDENT. P: We will give her some IV magnesium replacement today of 2 g. Saline lock her IV as she is having normal outputs and renal function is fine. I do not think she is volume depleted at this point. Continue to follow labs. I will transfer her to [facility] for ongoing cares and we are looking into ch[facility] placement. GABRIELE/BRIAN /[id number]
[2020-03-02] MEDS: Nicotine 14 MG/24 Hr Patch TRDERM SCH (08:04)
[2020-03-02] MEDS: LACTULOSE PO SCH (08:04)
[2020-03-02] MEDS: Aspirin 81 MG Tab.EC PO SCH (08:05)
[2020-03-02] MEDS: SPIRONOLACTONE 100 MG PO SCH (08:05)
[2020-03-02] MEDS: MAGNESIUM OXIDE PO SCH (08:06)
[2020-03-02] MEDS: Furosemide 40 MG Tab **OWN MED PO SCH (08:06)
[2020-03-02] MEDS: ESCITALOPRAM 10 MG PO SCH (08:06)
[2020-03-02] MEDS: SILDENAFIL 20 MG PO SCH ×3 (08:07→19:53)
[2020-03-02] MEDS: RIFAXIMIN 550 MG PO SCH ×2 (08:07→19:52)
[2020-03-02] MEDS: Pantoprazole 40 MG Vial IVPUSH SCH (08:08)
[2020-03-02] MEDS: Lactulose Soln 10 GM/15 ML 30 ML UD Cup PO SCH ×2 (13:50→19:54)
[2020-03-02] MEDS ORDERED: Magnesium Sulfate/D5W 2 GM in Premix Bag 1 BAG IV ONE (18:09)
--- NOTE | 2020-03-02 18:22 | PCM.PN ---
- General Info Date of Service: 03/02/20 Admission Dx/Problem (Free Text): Weakness Functional Status: Reports: Pain Controlled, Tolerating Diet, Ambulating (only able to ambulate for a few steps with walker) - Review of Systems General: Reports: Weakness, Fatigue, Malaise. Denies: Fever HEENT: Reports: No Symptoms Pulmonary: Denies: Shortness of Breath, Cough Cardiovascular: Denies: Chest Pain, Palpitations, Lightheadedness Gastrointestinal: Denies: Abdominal Pain, Nausea, Vomiting Genitourinary: Reports: Frequency, Incontinence Musculoskeletal: Reports: No Symptoms Skin: Reports: Jaundice Neurological: Reports: Weakness - Patient Data Vitals - Most Recent: Last Vital Signs Temp 99.3 F 03/02/20 16:00 Pulse 76 03/02/20 16:00 Resp 16 03/02/20 16:00 BP 96/41 L 03/02/20 16:00 Pulse Ox 99 03/02/20 16:00 Weight - Most Recent: 140 lb Lab Results Last 24 Hours: Laboratory Results - last 24 hr 02/29/20 03/02/20 03/02/20 Range/Units 12:57 06:55 06:55 WBC 4.4 L (5.0-10.0) 10^3/uL RBC 2.30 L (4.00-5.50) 10^6/uL Hgb 9.2 L (12.0-16.0) g/dL Hct 27.5 L (37.0-47.0) % MCV 119.6 H (82.0-94.0) fL MCH 40.0 H (27.0-32.0) pg MCHC 33.5 (33.0-38.0) g/dL RDW Coeff of Renae 16.4 H (11.0-15.0) % Plt Count 31 L* (150-400) 10^3/uL Neut % (Auto) 56.3 (35-85) % Lymph % (Auto) 26.8 (10-55) % [place] % (Auto) 13.3 (0-16) % Eos % (Auto) 3.4 (0-5) % Baso % (Auto) 0.2 (0-3) % Neut # (Auto) 2.46 (1.80-7.00) 10^3/uL Lymph # (Auto) 1.17 (1.00-4.80) 10^3/uL [place] # (Auto) 0.58 (0.00-0.80) 10^3/uL Eos # (Auto) 0.15 (0.00-0.45) 10^3/uL Baso # (Auto) 0.01 10^3/uL Magnesium 1.6 L (1.8-2.4) mg/dL COVID-19 PCR Not detected (NOT DETECT) Med Orders - Current: Current Medications Aspirin (Halfprin) 81 mg PO DAILY [facility] Last Admin: 03/02/20 08:05 Dose: 81 mg Citalopram Hydrobromide (Celexa) 20 mg PO DAILY [facility] Furosemide (Lasix) 20 mg PO DAILY [facility] Magnesium Sulfate/Dextrose 2 (gm/ Premix) 200 mls @ 100 mls/hr IV ONETIME ONE Stop: 03/02/20 20:08 Ibuprofen (Motrin) 400 mg PO Q6H PRN PRN Reason: Pain (mild 1-3) Last Admin: 02/29/20 16:29 Dose: 400 mg Lactulose (Cephulac) 30 gm PO TID [facility] Last Admin: 03/02/20 13:50 Dose: 30 gm Magnesium Oxide (Magnesium Oxide) 750 mg PO BID [facility] Nicotine (Habitrol) 14 mg TRDERM DAILY [facility] Last Admin: 03/02/20 08:04 Dose: Not Given Rifaximin [Xifaxan] (550 Mg Own Med) 0 mg PO BID [facility] Last Admin: 03/02/20 08:07 Dose: 550 mg Sildenafil 20 Mg (Own Med) 0 mg PO TID [facility] Last Admin: 03/02/20 13:50 Dose: 20 mg Ondansetron HCl (Zofran Odt) 4 mg PO Q4H PRN PRN Reason: nausea, able to take PO Ondansetron HCl (Zofran) 4 mg IV Q4H PRN PRN Reason: Nausea/Vomiting Pantoprazole Sodium (Protonix Iv) 40 mg IVPUSH DAILY [facility] Last Admin: 03/02/20 08:08 Dose: 40 mg Spironolactone (Aldactone) 50 mg PO DAILY [facility] Discontinued Medications Enoxaparin Sodium (Lovenox) 40 mg SUBCUT Q24H [facility] Last Admin: 02/29/20 18:52 Dose: Not Given Furosemide (Lasix) 20 mg PO DAILY [facility] Last Admin: 03/02/20 08:06 Dose: 20 mg Sodium Chloride (Normal Saline) 1,000 mls @ 150 mls/hr IV ASDIRECTED [facility] Last Admin: 02/29/20 13:41 Dose: 150 mls/hr Sodium Chloride (Normal Saline) 1,000 mls @ 75 mls/hr IV ASDIRECTED [facility] Last Admin: 03/01/20 09:21 Dose: 75 mls/hr Magnesium Sulfate/Dextrose 2 (gm/ Premix) 200 mls @ 100 mls/hr IV ONETIME ONE Stop: 03/01/20 11:49 Last Admin: 03/01/20 10:11 Dose: 100 mls/hr Lactulose (Cephulac) 30 gm PO TID [facility] Last Admin: 03/02/20 08:04 Dose: 30 gm Escitalopram 10 Mg (Own Med) 0 mg PO DAILY [facility] Last Admin: 03/02/20 08:06 Dose: 10 mg Magnesium Oxide 420mg/Tab Own Med* * 0 mg PO BID [facility] Last Admin: 03/02/20 08:06 Dose: 840 mg Spironolactone 100mg (Tab Own Med) 0 mg PO DAILY [facility] Last Admin: 03/02/20 08:05 Dose: 50 mg - Exam General: Alert, Oriented HEENT: Mucous Membr. Moist/[place] Neck: Supple Lungs: Clear to Auscultation, Normal Respiratory Effort Cardiovascular: Regular Rate, Regular Rhythm GI/Abdominal Exam: Normal Bowel Sounds, Soft, Non-Tender Extremities: Normal Inspection, No Pedal Edema Skin: Warm, Dry Neurological: No New Focal Deficit Sepsis Event Note - Evaluation Sepsis Screening Result: No Definite Risk - Focused Exam Vital Signs: Vital Signs Temp Temp Pulse Resp BP Pulse Ox 03/02/20 16:00 99.3 F 76 16 96/41 L 99 03/02/20 12:00 97.4 F 83 16 95/47 L 99 03/02/20 08:00 98.6 F 81 16 89/49 L 96 Date Exam was Performed: 03/02/20 Time Exam was Performed: 18:16 - Problem List & Annotations (1) Failure to thrive SNOMED Code(s): 81034689 Code(s): HPL5311 - Status: Acute Current Visit: No (2) Weakness SNOMED Code(s): 83095105 Code(s): R53.1 - WEAKNESS Status: Acute Priority: High Current Visit: Yes - Problem List Review Problem List Initiated/Reviewed/Updated: Yes - My Orders Last 24 Hours: My Active Orders 03/02/20 09:52 Patient Status [ADT] Routine 03/02/20 10:08 Furosemide [Lasix] 20 mg PO DAILY 03/02/20 10:13 Lactulose [Cephulac] 30 gm PO TID 03/02/20 10:17 Citalopram [Celexa] 20 mg PO DAILY 03/02/20 10:20 Magnesium Oxide 750 mg PO BID 03/02/20 10:26 Spironolactone [Aldactone] 50 mg PO DAILY 03/02/20 18:09 Magnesium Sulfate/D5W [Magnesium Sulfate in D5W 100 Premix] 2 gm Premix Bag 1 bag IV ONETIME 03/03/20 05:11 CBC WITH AUTO DIFF [HEME] AM COMPREHENSIVE METABOLIC PN,CMP [CHEM] AM MAGNESIUM [CHEM] AM - Assessment Assessment:: Weakness Vulnerable Adult - Plan Plan:: Patient is doing well today, stable. Does feel she is mildly stronger, able to walk a few steps with a walker and standby assist. Denies any pain, shortness of breath, nausea or vomiting. Labs noted, platelets low at 31. Chronic in nature. Magnesium still low at 1.6. COVID testing negative. Will continue to plan for placement to prison for rehab/strengthening. Start Slo Mag BID and IV magnesium 2 gm now. Repeat labs in am. Continue with physical therapy. Isolation discontinued.
[2020-03-02] MEDS ORDERED: Magnesium Chloride 64 MG Tab.ER PO SCH (20:00)
[2020-03-03] MEDS: Lactulose Soln 10 GM/15 ML 30 ML UD Cup PO SCH ×3 (07:25→19:39)
[2020-03-03] MEDS: Pantoprazole 40 MG Vial IVPUSH SCH (07:26)
[2020-03-03] MEDS: Aspirin 81 MG Tab.EC PO SCH (07:26)
[2020-03-03] MEDS: Citalopram 10 MG Tab PO SCH (07:26)
[2020-03-03] MEDS: Furosemide 20 MG Tab PO SCH (07:26)
[2020-03-03] MEDS: Nicotine 14 MG/24 Hr Patch TRDERM SCH ×2 (07:26→07:34)
[2020-03-03] MEDS: Spironolactone 25 MG Tab PO SCH (07:26)
[2020-03-03] MEDS: RIFAXIMIN 550 MG PO SCH ×2 (07:27→19:41)
[2020-03-03] MEDS: SILDENAFIL 20 MG PO SCH ×3 (07:27→19:41)
[2020-03-03 08:18] LABS: CHLORIDE,CL 105 mEq/L (98-106); SODIUM,NA 139 mEq/L (136-145)
--- NOTE | 2020-03-03 13:37 | PN ---
DATE: 03/03/2020 S: The patient continues to do well. She really does not have any new concerns. Her vital signs have been stable. She is not hypotensive. She is saturating fine. She does complain of some ongoing or nondescript right upper quadrant pain, which is likely related to her cirrhosis. O: GENERAL: Shows her to be pleasant and cooperative, confused but carries on conversation rather appropriately. HEENT: Grossly benign. NECK: Supple. LUNGS: Clear. CARDIAC: Tones are regular. ABDOMEN: Protuberant and soft. I cannot elicit pain to palpation in the right upper quadrant. SKIN: Shows jaundice. ASSESSMENT: 1. ALCOHOLIC LIVER DISEASE. 2. CHRONIC PANCYTOPENIA. 3. HYPOMAGNESEMIA. 4. WEAKNESS. P: We will continue with oral magnesium supplementation and her magnesium is almost back up to normal. No other changes. [facility]. GABRIELE/BRIAN /[id number]
[2020-03-04] MEDS: Aspirin 81 MG Tab.EC PO SCH (08:16)
[2020-03-04] MEDS: Spironolactone 25 MG Tab PO SCH (08:16)
[2020-03-04] MEDS: Pantoprazole 40 MG Vial IVPUSH SCH (08:16)
[2020-03-04] MEDS: Citalopram 10 MG Tab PO SCH (08:17)
[2020-03-04] MEDS: Nicotine 14 MG/24 Hr Patch TRDERM SCH (08:17)
[2020-03-04] MEDS: Lactulose Soln 10 GM/15 ML 30 ML UD Cup PO SCH (08:17)
[2020-03-04] MEDS: Furosemide 20 MG Tab PO SCH (08:17)
[2020-03-04] MEDS: RIFAXIMIN 550 MG PO SCH (08:18)
[2020-03-04] MEDS: SILDENAFIL 20 MG PO SCH (08:19)
[2020-03-04 09:16] VITALS: BP 94/47; PULSE 72
--- NOTE | 2020-03-04 12:19 | DISCH ---
ADMISSION DIAGNOSES: 1. Weakness. 2. Failure to thrive. 3. Alcoholic liver disease. 4. Chronic pancytopenia. 5. Hypomagnesemia. DISCHARGE DIAGNOSIS: 1. WEAKNESS. 2. FAILURE TO THRIVE. 3. ALCOHOLIC LIVER DISEASE. 4. CHRONIC PANCYTOPENIA. 5. HYPOMAGNESEMIA. HISTORY: The patient is a 39-year-old female with known history of alcoholic liver disease and chronic liver failure. She has had prior strokes. She has been trying to live at home with the aid of family. She was getting to the point where she could not take care of herself, was very weak, could not get around, and was presented to our clinic with that complaint. At the time of her admission, she was clinically in her normal state, albeit tired. She had chronic pancytopenia on her lab and was slightly hypomagnesemic, but otherwise labs were stable. She was tested for COVID which was negative. She was ultimately admitted to our facility for IV fluids, strengthening, and monitoring. HOSPITAL COURSE: The patient did well while here. She basically got some IV supplemental magnesium and her magnesium levels back up to the low end of normal. She has not had any significant change in her status while she is here. For the most part, has been stable. She is very weak. She has been getting PT. [facility] Pl[facility] consult was put into Social Work. [facility] and [facility] are [facility] on opening at a [place] facility for long-term care. At this time, she will be put in swing bed for further management and strengthening. COMPLICATIONS: During her stay were none. CONSULTATIONS: PT. DISPOSITION: Discharge to swing bed. DEANN /[id number]
== END 2020-03-04 11:35 | disposition swing bed (61) | DRG 948 ==
LOC: CC.ED 12:42 → CC.MS 15:01 → OBSVTOIN 03-01 09:56 → INTOOBSV 03-02 09:52 → OBSVTOIN 03-02 09:52 → CC.MS 03-02 10:09 → UNDODISIN 03-04 11:35
PROVIDERS: ADMIT Physician Assistant Medical; ATTEND Family Medicine
DX: R53.1 Weakness (principal); D61.818 Other pancytopenia; R62.7 Adult failure to thrive; K70.9 Alcoholic liver disease, unspecified; E83.42 Hypomagnesemia; Z11.59 Encounter for screening for other viral diseases; F41.0 Panic disorder [episodic paroxysmal anxiety]; D64.9 Anemia, unspecified; G62.9 Polyneuropathy, unspecified; S63.30 Traumatic rupture of unspecified ligament of wrist; W18.30XD Fall on same level, unspecified, subsequent encounter; Z88.5 Allergy status to narcotic agent; Z91.041 Radiographic dye allergy status; Z91.09 Other allergy status, other than to drugs and biological substances; F17.200 Nicotine dependence, unspecified, uncomplicated; K74.60 Unspecified cirrhosis of liver; Z68.24 Body mass index [BMI] 24.0-24.9, adult; Z87.19 Personal history of other diseases of the digestive system; Z86.73 Personal history of transient ischemic attack (TIA), and cerebral infarction without residual deficits; F43.10 Post-traumatic stress disorder, unspecified; F32.9 Major depressive disorder, single episode, unspecified; Z86.14 Personal history of Methicillin resistant Staphylococcus aureus infection; Z96.649 Presence of unspecified artificial hip joint; Z88.6 Allergy status to analgesic agent; Z91.048 Other nonmedicinal substance allergy status; Z79.899 Other long term (current) drug therapy
CPT/HCPCS: 36415; 80053; 81003; 82140; 83735; 83880; 85025; 86140; 87804; 97110-GP; 97161-GP; 97530-GP; 99220; 99225; 99285; A9270-GY; C9113; J3475; J7030; U0002

== ENCOUNTER 2020-03-04 11:35 | Inpatient (IN) | payer MEDICAID ==
[2020-03-04] MEDS ORDERED: Sodium Chloride 0.9% 10 ML Syringe FLUSH PRN (12:55)
[2020-03-04] MEDS ORDERED: Ondansetron 4 MG Tab.DIS PO PRN (12:55)
[2020-03-04] MEDS ORDERED: NICOTINE POLACRILEX 4 MG BC PRN (12:58)
[2020-03-04] MEDS ORDERED: Enoxaparin 30 MG/0.3 ML Syringe SUBCUT SCH (13:00)
[2020-03-04] MEDS ORDERED: Pantoprazole 40 MG Vial IVPUSH SCH (13:00)
[2020-03-04] MEDS ORDERED: Lactulose Soln 10 GM/15 ML 30 ML UD Cup PO SCH (14:00)
[2020-03-04] MEDS: LACTULOSE 10 GM/15 ML PO SCH (19:37)
[2020-03-04] MEDS: RIFAXIMIN 550 MG PO SCH (19:39)
[2020-03-04] MEDS ORDERED: [UNRECOGNIZED DRUG - OTHER] TOP SCH (20:00)
[2020-03-05] MEDS: Furosemide 20 MG Tab PO SCH (07:52)
[2020-03-05] MEDS: Multivitamin Tab PO SCH (07:52)
[2020-03-05] MEDS: Spironolactone 25 MG Tab PO SCH (07:52)
[2020-03-05] MEDS: Aspirin 81 MG Tab.EC PO SCH (07:53)
[2020-03-05] MEDS: Citalopram 10 MG Tab PO SCH (07:53)
[2020-03-05] MEDS: Pantoprazole 40 MG Vial IVPUSH SCH (07:53)
[2020-03-05] MEDS: RIFAXIMIN 550 MG PO SCH ×2 (07:54→19:37)
[2020-03-05] MEDS: LACTULOSE 10 GM/15 ML PO SCH ×3 (07:56→19:36)
[2020-03-05] MEDS: Nicotine 14 MG/24 Hr Patch TRDERM SCH (07:56)
[2020-03-06] MEDS: Pantoprazole 40 MG Vial IVPUSH SCH (08:19)
[2020-03-06] MEDS: Furosemide 20 MG Tab PO SCH (08:19)
[2020-03-06] MEDS: Multivitamin Tab PO SCH (08:20)
[2020-03-06] MEDS: Aspirin 81 MG Tab.EC PO SCH (08:20)
[2020-03-06] MEDS: Spironolactone 25 MG Tab PO SCH (08:20)
[2020-03-06] MEDS: Citalopram 10 MG Tab PO SCH (08:21)
[2020-03-06] MEDS: Nicotine 14 MG/24 Hr Patch TRDERM SCH (08:22)
[2020-03-06] MEDS: LACTULOSE 10 GM/15 ML PO SCH ×3 (08:22→19:44)
[2020-03-06] MEDS: RIFAXIMIN 550 MG PO SCH ×2 (08:23→19:44)
[2020-03-07] MEDS: Pantoprazole 40 MG Vial IVPUSH SCH (08:14)
[2020-03-07] MEDS: Aspirin 81 MG Tab.EC PO SCH (08:15)
[2020-03-07] MEDS: Spironolactone 25 MG Tab PO SCH (08:15)
[2020-03-07] MEDS: Furosemide 20 MG Tab PO SCH (08:15)
[2020-03-07] MEDS: Nicotine 14 MG/24 Hr Patch TRDERM SCH (08:15)
[2020-03-07] MEDS: Multivitamin Tab PO SCH (08:15)
[2020-03-07] MEDS: Citalopram 10 MG Tab PO SCH (08:16)
[2020-03-07] MEDS: RIFAXIMIN 550 MG PO SCH ×2 (08:17→19:34)
[2020-03-07] MEDS: LACTULOSE 10 GM/15 ML PO SCH ×3 (08:18→19:35)
[2020-03-08] MEDS: Pantoprazole 40 MG Vial IVPUSH SCH (07:31)
[2020-03-08] MEDS: Multivitamin Tab PO SCH (07:31)
[2020-03-08] MEDS: Aspirin 81 MG Tab.EC PO SCH (07:31)
[2020-03-08] MEDS: Citalopram 10 MG Tab PO SCH (07:31)
[2020-03-08] MEDS: Furosemide 20 MG Tab PO SCH (07:31)
[2020-03-08] MEDS: Spironolactone 25 MG Tab PO SCH (07:31)
[2020-03-08] MEDS: Nicotine 14 MG/24 Hr Patch TRDERM SCH ×2 (07:32→07:41)
[2020-03-08] MEDS: LACTULOSE 10 GM/15 ML PO SCH ×3 (07:33→19:56)
[2020-03-08] MEDS: RIFAXIMIN 550 MG PO SCH ×2 (07:34→19:57)
[2020-03-09] MEDS: Spironolactone 25 MG Tab PO SCH (07:32)
[2020-03-09] MEDS: Multivitamin Tab PO SCH (07:32)
[2020-03-09] MEDS: Citalopram 10 MG Tab PO SCH (07:32)
[2020-03-09] MEDS: Furosemide 20 MG Tab PO SCH (07:32)
[2020-03-09] MEDS: Aspirin 81 MG Tab.EC PO SCH (07:32)
[2020-03-09] MEDS: Pantoprazole 40 MG Vial IVPUSH SCH (07:32)
[2020-03-09] MEDS: LACTULOSE 10 GM/15 ML PO SCH ×3 (08:44→19:18)
[2020-03-09] MEDS: RIFAXIMIN 550 MG PO SCH ×2 (08:44→19:18)
[2020-03-10] MEDS: Aspirin 81 MG Tab.EC PO SCH (07:51)
[2020-03-10] MEDS: Furosemide 20 MG Tab PO SCH (07:51)
[2020-03-10] MEDS: Citalopram 10 MG Tab PO SCH (07:51)
[2020-03-10] MEDS: Multivitamin Tab PO SCH (07:51)
[2020-03-10] MEDS: Pantoprazole 40 MG Vial IVPUSH SCH (07:51)
[2020-03-10] MEDS: Spironolactone 25 MG Tab PO SCH (07:52)
[2020-03-10] MEDS: LACTULOSE 10 GM/15 ML PO SCH (08:10)
[2020-03-10] MEDS: RIFAXIMIN 550 MG PO SCH ×2 (08:10→19:36)
--- NOTE | 2020-03-10 12:24 | PN ---
DATE: 03/10/2020 Ms. Lomas remains in swing bed for ongoing strengthening. She has not had any cardiopulmonary instability and for the most part has been doing well. We are waiting on longterm placement at [place] through a [place] facility. She is staying in swing bed at this time because she cannot care for herself and she requires a negative COVID test prior to entrance to that facility. That COVID test will be drawn this morning and the plan is for her to be leaving our facility and entering [facility] on Saturday. GABRIELE/BRIAN /[id number]
[2020-03-10] MEDS: Lactulose Soln 10 GM/15 ML 30 ML UD Cup PO SCH ×2 (14:18→19:37)
[2020-03-11] MEDS: Spironolactone 25 MG Tab PO SCH (07:32)
[2020-03-11] MEDS: Multivitamin Tab PO SCH (07:32)
[2020-03-11] MEDS: Aspirin 81 MG Tab.EC PO SCH (07:32)
[2020-03-11] MEDS: Citalopram 10 MG Tab PO SCH (07:32)
[2020-03-11] MEDS: Lactulose Soln 10 GM/15 ML 30 ML UD Cup PO SCH ×3 (07:32→19:27)
[2020-03-11] MEDS: Furosemide 20 MG Tab PO SCH (07:32)
[2020-03-11] MEDS: Pantoprazole 40 MG Tab.CR PO SCH (07:32)
[2020-03-11] MEDS: RIFAXIMIN 550 MG PO SCH ×2 (07:34→19:29)
[2020-03-11] MEDS ORDERED: Pantoprazole 40 MG Tab.CR PO SCH (08:00)
[2020-03-11] MEDS ORDERED: Tuberculin, PPD 5 Units/0.1 ML 1 ML MDV IDERM ONE (11:20)
[2020-03-12] MEDS: Spironolactone 25 MG Tab PO SCH (07:29)
[2020-03-12] MEDS: Citalopram 10 MG Tab PO SCH (07:29)
[2020-03-12] MEDS: Furosemide 20 MG Tab PO SCH (07:29)
[2020-03-12] MEDS: Multivitamin Tab PO SCH (07:30)
[2020-03-12] MEDS: Lactulose Soln 10 GM/15 ML 30 ML UD Cup PO SCH ×3 (07:30→19:51)
[2020-03-12] MEDS: Aspirin 81 MG Tab.EC PO SCH (07:30)
[2020-03-12] MEDS: Pantoprazole 40 MG Tab.CR PO SCH (07:30)
[2020-03-12] MEDS: RIFAXIMIN 550 MG PO SCH ×2 (07:31→19:48)
[2020-03-13] MEDS: Spironolactone 25 MG Tab PO SCH (08:15)
[2020-03-13] MEDS: Citalopram 10 MG Tab PO SCH (08:16)
[2020-03-13] MEDS: Multivitamin Tab PO SCH (08:17)
[2020-03-13] MEDS: Furosemide 20 MG Tab PO SCH (08:17)
[2020-03-13] MEDS: Pantoprazole 40 MG Tab.CR PO SCH (08:17)
[2020-03-13] MEDS: Aspirin 81 MG Tab.EC PO SCH (08:17)
[2020-03-13] MEDS: RIFAXIMIN 550 MG PO SCH ×2 (08:18→19:40)
[2020-03-13] MEDS: Lactulose Soln 10 GM/15 ML 30 ML UD Cup PO SCH ×3 (08:19→19:38)
[2020-03-14] MEDS: Aspirin 81 MG Tab.EC PO SCH (07:58)
[2020-03-14] MEDS: Multivitamin Tab PO SCH (07:58)
[2020-03-14] MEDS: Spironolactone 25 MG Tab PO SCH (07:58)
[2020-03-14] MEDS: Pantoprazole 40 MG Tab.CR PO SCH (07:59)
[2020-03-14] MEDS: Citalopram 10 MG Tab PO SCH (07:59)
[2020-03-14] MEDS: Lactulose Soln 10 GM/15 ML 30 ML UD Cup PO SCH ×3 (07:59→19:20)
[2020-03-14] MEDS: Furosemide 20 MG Tab PO SCH (07:59)
[2020-03-14] MEDS: RIFAXIMIN 550 MG PO SCH ×2 (08:02→19:22)
[2020-03-15] MEDS: Aspirin 81 MG Tab.EC PO SCH (07:29)
[2020-03-15] MEDS: Citalopram 10 MG Tab PO SCH (07:30)
[2020-03-15] MEDS: Spironolactone 25 MG Tab PO SCH (07:30)
[2020-03-15] MEDS: Pantoprazole 40 MG Tab.CR PO SCH (07:32)
[2020-03-15] MEDS: Multivitamin Tab PO SCH (07:32)
[2020-03-15] MEDS: Furosemide 20 MG Tab PO SCH (07:32)
[2020-03-15] MEDS: RIFAXIMIN 550 MG PO SCH (07:33)
[2020-03-15] MEDS: Lactulose Soln 10 GM/15 ML 30 ML UD Cup PO SCH (07:34)
[2020-03-15 10:48] VITALS: BP 94/45; PULSE 75
--- NOTE | 2020-03-15 15:39 | DISCH ---
ADMISSION DIAGNOSES: 1. Weakness. 2. Failure to thrive. 3. Alcoholic liver disease. 4. Chronic pancytopenia. 5. Hypomagnesemia. DISCHARGE DIAGNOSIS: 1. WEAKNESS. 2. FAILURE TO THRIVE. 3. ALCOHOLIC LIVER DISEASE. 4. CHRONIC PANCYTOPENIA. 5. HYPOMAGNESEMIA. HISTORY: The patient is a 39-year-old female with chronic alcoholic liver disease, pancytopenia, and prior strokes. She presented to our facility for acute care admission for weakness, dehydration, and electrolyte abnormalities. Those were dealt with in acute care. She ultimately was transferred to swing bed because she cannot take care of herself and family could no longer help manage her at home and she was waiting for long-term placement. SWING BED COURSE: The patient was fine while here. PT worked with her. She has had some degree of improvement in her overall general malaise and weakness. For the most part, she has had no complications, no vital sign irregularities, no electrolyte abnormalities or signs of infection. She is being transferred to a [place] [facility] for [facility]-term care. No other complications during her stay. COMPLICATIONS: During her stay were none. CONSULTATIONS: PT. DISPOSITION: Transfer to [place] long-term care at [facility]. GABRIELE/BRIAN /[id number]
== END 2020-03-15 09:50 | DRG 948 ==
LOC: CC.MS 11:35 → UNDOADMIN 11:35 → CC.MS 12:55
PROVIDERS: ADMIT Family Medicine; ATTEND Family Medicine
DX: R53.1 Weakness (principal); D61.818 Other pancytopenia; R62.7 Adult failure to thrive; E83.42 Hypomagnesemia; E86.0 Dehydration; K76.9 Liver disease, unspecified; Z20.828 Contact with and (suspected) exposure to other viral communicable diseases; Z86.73 Personal history of transient ischemic attack (TIA), and cerebral infarction without residual deficits; Z68.25 Body mass index [BMI] 25.0-25.9, adult
CPT/HCPCS: 86580; 97110-GP; 97530-GP; A9270-GY; C9113; U0002